=== PATIENT | male | born 1945 | race Caucasian/White ===

== ENCOUNTER → 2018-03-23 03:07 | Outpatient (CLI) | payer MEDICARE, SELFPAY ==
[2018-03-23 09:48] LABS: INR 2.5 (1.0-3.5)
[2018-03-23 10:27] LABS: Cholesterol 98 mg/dL (50-200); HDL Cholesterol 43 mg/dL (40-60); LDL CHOLESTEROL 48 mg/dL (<100); Triglyceride 99 mg/dL (30-150)
== END ==
PROVIDERS: PCP Family Medicine; Visit Provider Family Medicine
DX: E78.5 Hyperlipidemia, unspecified (principal); I48.91 Unspecified atrial fibrillation; Z79.01 Long term (current) use of anticoagulants
CPT/HCPCS: 36415; 80061; 83721; 85610

== ENCOUNTER 2018-04-26 08:49 | Outpatient (CLI) | payer MEDICARE, SELFPAY ==
[2018-04-26 14:41] LABS: INR 1.8 (1.0-3.5); Prothrombin Time 17.1 sec (9.3-10.8)
== END 2018-04-26 09:09 ==
PROVIDERS: PCP Family Medicine; Visit Provider Family Medicine
DX: I48.91 Unspecified atrial fibrillation (principal); Z79.01 Long term (current) use of anticoagulants
CPT/HCPCS: 36415; 85610

== ENCOUNTER → 2018-05-09 12:46 | Outpatient (BNVA) | payer MEDICARE, SELFPAY | PROVIDERS: PCP Family Medicine; Referring Provider Family Medicine; Visit Provider Surgery | DX: K21.9 Gastro-esophageal reflux disease without esophagitis (principal); K22.70 Barrett's esophagus without dysplasia | CPT/HCPCS: 99213 ==

== ENCOUNTER 2018-05-25 09:24 | Day surgery (SDC) | payer MEDICARE, SELFPAY ==
--- NOTE | 2018-05-25 06:31 | W.PM.OP ---
Date of service: 05/25/18 Operative Note DATE OF PROCEDURE: 05/25/18 PRE-OP DIAGNOSIS: GERD POST-OP DIAGNOSIS: other (Duodenitis, gastritis and esophagitis) PROCEDURE: EGD with biopsies SURGEON: Terri Johnson ANESTHESIA: MAC (Jian Farnsworth, YADIRA) ESTIMATED BLOOD LOSS: 2 PATHOLOGY: other (Antrum and esophageal biopsies) COMPLICATIONS: None Patient was transported to: same day Patient's condition: stable Indications: Mr. Carlson is a pleasant 73-year-old gentleman with a history of esophageal reflux who was seen in the office with some increased symptoms. Risks, benefits and complications were reviewed with him and he wished to proceed. No guarantees were given or implied. Findings: Mild inflammation of the duodenum and stomach. There is moderate esophageal inflammation with most likely some Bautista's Procedure Description: After informed consent was obtained the patient was taken to the procedure room and placed in a supine position. Monitors were applied and a time out was done. The patients name, date of , procedure, allergies to medications and metal in their body was reviewed. The patient was then sedated. Once sedated and comfortable the Gastroscope was introduced and advanced through the oropharynx. The oropharynx was grossly intact. The scope was advanced into the esophagus. Proximal and mid-esophagus were normal. In the distal esophagus moderate inflammation was noted. The scope was advanced into the stomach and through the pylorus into the third portion of the duodenum. Third and second portions of the duodenuma were normal. In the 1st portion of the duodenum there was some inflammation noted. The scope was retracted into the stomach where mild inflammation was noted. Biopsies were done to rule out H. pylori. The scope was then retroflexed. The cardia and fundus of the stomach were normal. The scope was straightened and pulled back into the esophagus. The Z line was noted to be irregular. The GE junction was noted to be at 40 centimeters. Biopsies were done to rule out H. pylori. There were islands of inflammation noted at 38 cm and these were biopsied as well. The scope was removed and the patient was woken up and taken back to Same day surgery in stable condition. The patient tolerated the procedure well and there were no immediate complications. Follow up: The patient should follow up in 2-3 weeks.
--- NOTE | 2018-05-25 06:36 | W.PM.DSUDISC ---
Discharge Plan Disposition Patient Disposition: HOME Condition: Good Discharge Details Reason For Visit: GERD/EGD Attending Provider: Terri Johnson Primary Care Provider: Marck Mcneal Home Meds and New Rx's Prescriptions: New ranitidine HCl [Zantac] 300 mg tablet 300 mg PO HS Qty: 30 RF: 3 Continue multivitamin [Daily Vitamin] 1 EACH tablet 1 ea PO DAILY RF: 0 aspirin [Ecotrin Low Strength] 81 MG tablet,delayed release (DR/EC) 1 tab PO DAILY RF: 0 saw palmetto 160 MG capsule 1 cap PO DAILY PRN PRNRF: 0 glucosam-chond ka-yhckfj-yy ac 1 EACH capsule 1 tab PO DAILY RF: 0 baclofen 10 MG tablet 10 mg PO TID PRNQty: 30 RF: 0 Warfarin Sodium 5 MG tablet PO DIRECTED Qty: 30 RF: 11 nitroglycerin [Nitrostat] 0.4 MG tablet, sublingual 0.4 mg Sublingual PRN Qty: 25 RF: 4 atorvastatin 40 mg tablet 40 mg PO DAILY Qty: 90 RF: 4 pantoprazole 40 MG tablet,delayed release (DR/EC) 40 mg PO DAILY@0730 PRNRF: 0 acetaminophen [Tylenol Extra Strength] 500 mg Tablet 500 mg PO Q6H PRNRF: 0 warfarin [Coumadin] 5 MG tablet 5 mg PO QPM RF: 0 Discharge Instructions Instructions: Upper Endoscopy (DC), Diet for Stomach Ulcers and Gastritis (GEN), Duodenitis (DC), Gastritis (DC), Gastroesophageal Reflux Disease (DC) Additional Instructions: Findings: Inflammation of the stomach and small bowel that were mild Inflammation of the esophagus Follow up: 2-3 weeks in the office New Medications: Zantac 300 mg at night Continue Pantoprazole Please call if you develop: fevers >101.5 Nausea or Vomiting Non Transient abdominal pain Worsening shortness of breath 1. Because there will be medication in your system for the next 24 hours, you may feel a little sleepy. Your coordination will be affected. Therefore: a. Do not drive or operate dangerous equipment for 24 hours. b. Do not drink alcohol beverages for 24 hours (not even beer). c. Plan to go home and rest for the day. 2. Generally there are no restrictions on your activity after a day or so has gone by, but you may feel a bit fatigued for a few days. 3 After you arrive home you may have a light meal and return to a normal diet as you can tolerate it without feeling sick to your stomach. 4. After surgery, you may feel pain or discomfort. This should be only transient, but if it persists please contact your doctor. 5. If there are any questions regarding the findings of your procedure, please feel free to contact your doctor. 6. If you are unable to contact your doctor with a problem, contact the ospital at [phone]. 7. Continue all your regular medications unless directed otherwise. I understand the above instructions and have no questions. Signature of Patient or Responsible Adult Escort Date/Time Name of Responsible Adult Escort Signature of Nurse Date/Time Stand Alone Forms: DSU Post EGD Instructions, Favian Trevino (DSU) Referrals: Terri Johnson MD [ [facility] STAFF PHYSICIAN] - 06/06/18 8:45 am Activity:: Activity as Tolerated Diet:: As Tolerated Discharge Orders Discharge Orders: Discharge Order (Routine); Ordered 05/25/18 Ordered By: Terri Johnson DS: Diagnosis Discharge Diagnosis (1) Esophagitis: Status: Acute (2) Gastritis: Status: Acute
--- NOTE | 2018-05-25 06:39 | PDOC.DSDIS_ITS ---
Discharge Plan Disposition Patient Disposition: HOME Condition: Good Discharge Details Reason For Visit: GERD/EGD Attending Provider: Terri Johnson Primary Care Provider: Marck Mcneal Home Meds and New Rx's Prescriptions: New ranitidine HCl [Zantac] 300 mg tablet 300 mg PO HS Qty: 30 RF: 3 Continue multivitamin [Daily Vitamin] 1 EACH tablet 1 ea PO DAILY RF: 0 aspirin [Ecotrin Low Strength] 81 MG tablet,delayed release (DR/EC) 1 tab PO DAILY RF: 0 saw palmetto 160 MG capsule 1 cap PO DAILY PRN PRNRF: 0 glucosam-chond gp-yxsail-po ac 1 EACH capsule 1 tab PO DAILY RF: 0 baclofen 10 MG tablet 10 mg PO TID PRNQty: 30 RF: 0 Warfarin Sodium 5 MG tablet PO DIRECTED Qty: 30 RF: 11 nitroglycerin [Nitrostat] 0.4 MG tablet, sublingual 0.4 mg Sublingual PRN Qty: 25 RF: 4 atorvastatin 40 mg tablet 40 mg PO DAILY Qty: 90 RF: 4 pantoprazole 40 MG tablet,delayed release (DR/EC) 40 mg PO DAILY@0730 PRNRF: 0 acetaminophen [Tylenol Extra Strength] 500 mg Tablet 500 mg PO Q6H PRNRF: 0 warfarin [Coumadin] 5 MG tablet 5 mg PO QPM RF: 0 Discharge Instructions Instructions: Upper Endoscopy (DC), Diet for Stomach Ulcers and Gastritis (GEN) , Duodenitis (DC), Gastritis (DC), Gastroesophageal Reflux Disease (DC) Additional Instructions: Findings: Inflammation of the stomach and small bowel that were mild Inflammation of the esophagus Follow up: 2-3 weeks in the office New Medications: Zantac 300 mg at night Continue Pantoprazole Please call if you develop: fevers >101.5 Nausea or Vomiting Non Transient abdominal pain Worsening shortness of breath 1. Because there will be medication in your system for the next 24 hours, you may feel a little sleepy. Your coordination will be affected. Therefore: a. Do not drive or operate dangerous equipment for 24 hours. b. Do not drink alcohol beverages for 24 hours (not even beer). c. Plan to go home and rest for the day. 2. Generally there are no restrictions on your activity after a day or so has gone by, but you may feel a bit fatigued for a few days. 3 After you arrive home you may have a light meal and return to a normal diet as you can tolerate it without feeling sick to your stomach. 4. After surgery, you may feel pain or discomfort. This should be only transient , but if it persists please contact your doctor. 5. If there are any questions regarding the findings of your procedure, please feel free to contact your doctor. 6. If you are unable to contact your doctor with a problem, contact the ospital at [phone]. 7. Continue all your regular medications unless directed otherwise. I understand the above instructions and have no questions. Signature of Patient or Responsible Adult Escort Date/Time Name of Responsible Adult Escort Signature of Nurse Date/Time Stand Alone Forms: DSU Post EGD Instructions, Favian Trevino (DSU) Referrals: Terri Johnson MD [ [facility] STAFF PHYSICIAN] - 06/06/18 8:45 am Activity:: Activity as Tolerated Diet:: As Tolerated Discharge Orders Discharge Orders: Discharge Order (Routine); Ordered 05/25/18 Ordered By: Terri Johnson DS: Diagnosis Discharge Diagnosis (1) Esophagitis: Status: Acute (2) Gastritis: Status: Acute
[2018-05-25 09:43] VITALS: BP 133/80; PULSE 54; RESP 18; TEMP 35.1; O2SAT 99
[2018-05-25 09:54] VITALS: BP 133/80; PULSE 54; RESP 18; TEMP 35.1; O2SAT 99
[2018-05-25 10:05] LABS: Prothrombin Time 10.1 sec (9.3-10.8)
[2018-05-25] MEDS: Lactated Ringers 1,000 ML 80 ML IV (10:10)
--- NOTE | 2018-05-25 11:50 | STOM_PTH ---
PATIENT: Les Carlson LOC: [facility] U#:[id number] AGE/SX: 73/M ROOM: RE05/25/[address]: Terri Johnson MD : [id number] BED: DIS: 05/25/2018 SPEC #: [id number] RECD: 05/25/18 13:03 STATUS: ALIX RE #: [id number] HEIDI: 05/25/18 11:[address]: Terri Johnson DEPT: Surgical Specimen RECD BY: Sahra Guo ENTERED: 05/25/18 13:10 SP TYPE: STOMACH OTHR DR: Marck Mcneal MD Tissues: 1 - STOMACH BIOPSY 2 - ESOPHAGUS BIOPSY 3 - ESOPHAGUS BIOPSY Procedures: GROSS AND MICRO LEVEL 4 Comments: [id number]
[2018-05-25 12:35] VITALS: BP 120/92; PULSE 56; RESP 16; TEMP 35.4; O2SAT 94
== END 2018-05-25 14:10 | disposition home or self-care (01) ==
LOC: SUR 09:24
PROVIDERS: PCP Family Medicine; Visit Provider Surgery
PROC: 0DJ68ZZ Inspection of Stomach, Via Natural or Artificial Opening Endoscopic (ICD-10-PCS; CPT 43235; principal; 2018-05-25 11:15)
DX: K21.9 Gastro-esophageal reflux disease without esophagitis (principal); K22.70 Barrett's esophagus without dysplasia; K29.30 Chronic superficial gastritis without bleeding; G47.33 Obstructive sleep apnea (adult) (pediatric); I48.91 Unspecified atrial fibrillation; Z79.4 Long term (current) use of insulin
CPT/HCPCS: 43239; 36415; 88305; 85610; J2250; J3010

== ENCOUNTER 2018-05-30 08:42 | Outpatient (CLI) | payer MEDICARE, SELFPAY ==
[2018-05-30 11:44] LABS: INR 1.4 (1.0-3.5); Prothrombin Time 13.3 sec (9.3-10.8)
== END 2018-05-30 09:02 ==
PROVIDERS: PCP Family Medicine; Visit Provider Family Medicine
DX: I48.91 Unspecified atrial fibrillation (principal); Z79.01 Long term (current) use of anticoagulants
CPT/HCPCS: 36415; 85610

== ENCOUNTER 2018-06-08 09:26 | Outpatient (CLI) | payer MEDICARE, SELFPAY ==
[2018-06-08 13:09] LABS: INR 2.2 (1.0-3.5); Prothrombin Time 20.5 sec (9.3-10.8)
== END 2018-06-08 09:46 ==
PROVIDERS: PCP Family Medicine; Visit Provider Family Medicine
DX: I48.91 Unspecified atrial fibrillation (principal); Z79.01 Long term (current) use of anticoagulants
CPT/HCPCS: 36415; 85610

== ENCOUNTER → 2018-06-13 13:02 | Outpatient (BNVA) | payer MEDICARE, SELFPAY | PROVIDERS: PCP Family Medicine; Referring Provider Family Medicine; Visit Provider Surgery | DX: K29.00 Acute gastritis without bleeding (principal); K22.70 Barrett's esophagus without dysplasia | CPT/HCPCS: 99213 ==

== ENCOUNTER 2018-07-10 02:24 | Outpatient (CLI) | payer MEDICARE, SELFPAY ==
[2018-07-10 14:03] LABS: INR 3.1 (1.0-3.5); Prothrombin Time 29.1 sec (9.3-10.8)
== END 2018-07-10 02:44 ==
PROVIDERS: PCP Family Medicine; Visit Provider Family Medicine
DX: I48.91 Unspecified atrial fibrillation (principal); Z79.01 Long term (current) use of anticoagulants
CPT/HCPCS: 85610

== ENCOUNTER 2018-08-09 01:00 | Outpatient (CLI) | payer MEDICARE, SELFPAY ==
[2018-08-09 14:48] LABS: INR 1.9 (0.9-1.1); Prothrombin Time 18.9 sec (9.3-11.0)
== END 2018-08-09 01:20 ==
PROVIDERS: PCP Family Medicine; Visit Provider Family Medicine
DX: I48.91 Unspecified atrial fibrillation (principal); Z79.01 Long term (current) use of anticoagulants
CPT/HCPCS: 36415; 85610

== ENCOUNTER 2018-08-25 14:16 | Outpatient (CLI) | payer MEDICARE, SELFPAY ==
[2018-08-25 15:58] LABS: Anion Gap 8.4 mmol/L (3-11); BUN 18 mg/dL (7-18); CO2 28.6 mmol/L (21.0-32.0); CREATININE 1.14 mg/dL (0.70-1.30); Calcium 9.1 mg/dL (8.5-10.1); Chloride 103 mmol/L (98-107); Glucose 139 mg/dL (70-100); Sodium 140 mmol/L (136-145)
== END 2018-08-25 14:36 ==
PROVIDERS: PCP Family Medicine; Visit Provider Family Medicine
DX: I95.9 Hypotension, unspecified (principal)
CPT/HCPCS: 36415; 80048

== ENCOUNTER 2018-09-14 11:54 | Outpatient (CLI) | payer MEDICARE, SELFPAY ==
[2018-09-14 16:03] LABS: INR 2.9 (0.9-1.1); Prothrombin Time 29.6 sec (9.3-11.0)
== END 2018-09-14 12:14 ==
PROVIDERS: PCP Family Medicine; Visit Provider Family Medicine
DX: I48.91 Unspecified atrial fibrillation (principal); Z79.01 Long term (current) use of anticoagulants
CPT/HCPCS: 36415; 85610

== ENCOUNTER 2018-10-10 10:51 | Outpatient (CLI) | payer MEDICARE, SELFPAY ==
[2018-10-10 11:51] LABS: INR 1.6 (0.9-1.1); Prothrombin Time 16.3 sec (9.3-11.0)
== END 2018-10-10 11:11 ==
PROVIDERS: PCP Family Medicine; Visit Provider Family Medicine
DX: I48.91 Unspecified atrial fibrillation (principal); Z79.01 Long term (current) use of anticoagulants
CPT/HCPCS: 36415; 85610

== ENCOUNTER 2018-10-18 02:36 | Outpatient (CLI) | payer MEDICARE, SELFPAY ==
[2018-10-18 15:34] LABS: INR 2.3 (0.9-1.1); Prothrombin Time 23.6 sec (9.3-11.0)
== END 2018-10-18 02:56 ==
PROVIDERS: PCP Family Medicine; Visit Provider Family Medicine
DX: I48.91 Unspecified atrial fibrillation (principal); Z79.01 Long term (current) use of anticoagulants
CPT/HCPCS: 36415; 85610

== ENCOUNTER 2018-10-31 09:49 | Outpatient (CLI) | payer MEDICARE, SELFPAY ==
[2018-10-31 12:15] LABS: Prothrombin Time 20.6 sec (9.3-11.0)
== END 2018-10-31 10:09 ==
PROVIDERS: PCP Family Medicine; Visit Provider Family Medicine
DX: I48.91 Unspecified atrial fibrillation (principal); Z79.01 Long term (current) use of anticoagulants
CPT/HCPCS: 36415; 85610

== ENCOUNTER 2018-11-30 13:19 | Outpatient (CLI) | payer MEDICARE, SELFPAY ==
[2018-11-30 14:14] LABS: INR 1.4 (0.9-1.1); Prothrombin Time 13.7 sec (9.3-11.0)
== END 2018-11-30 13:39 ==
PROVIDERS: PCP Family Medicine; Visit Provider Family Medicine
DX: I48.91 Unspecified atrial fibrillation (principal); Z79.01 Long term (current) use of anticoagulants
CPT/HCPCS: 36415; 85610

== ENCOUNTER 2018-12-06 01:31 | Outpatient (CLI) | payer MEDICARE, SELFPAY ==
[2018-12-06 09:20] LABS: Prothrombin Time 20.6 sec (9.3-11.0)
== END 2018-12-06 01:51 ==
PROVIDERS: PCP Family Medicine; Visit Provider Family Medicine
DX: I48.91 Unspecified atrial fibrillation (principal); Z79.01 Long term (current) use of anticoagulants
CPT/HCPCS: 36415; 85610

== ENCOUNTER 2019-01-22 02:28 | Outpatient (CLI) | payer MEDICARE, SELFPAY ==
[2019-01-22 16:19] LABS: Prothrombin Time 30.8 sec (9.3-11.0)
== END 2019-01-22 02:48 ==
PROVIDERS: PCP Family Medicine; Visit Provider Family Medicine
DX: I48.91 Unspecified atrial fibrillation (principal); Z79.01 Long term (current) use of anticoagulants
CPT/HCPCS: 36415; 85610

== ENCOUNTER 2019-02-23 03:18 | Outpatient (CLI) | payer MEDICARE, SELFPAY ==
[2019-02-23 11:59] LABS: INR 2.3 (0.9-1.1); Prothrombin Time 23.1 sec (9.3-11.0)
== END 2019-02-23 03:38 ==
PROVIDERS: PCP Family Medicine; Visit Provider Family Medicine
DX: I48.91 Unspecified atrial fibrillation (principal); Z79.01 Long term (current) use of anticoagulants
CPT/HCPCS: 36415; 85610

== ENCOUNTER 2019-03-26 08:59 | Outpatient (CLI) | payer MEDICARE, SELFPAY ==
[2019-03-26 13:11] LABS: Prothrombin Time 30.5 sec (9.3-11.0)
== END 2019-03-26 09:19 ==
PROVIDERS: PCP Family Medicine; Visit Provider Family Medicine
DX: I48.91 Unspecified atrial fibrillation (principal); Z79.01 Long term (current) use of anticoagulants
CPT/HCPCS: 36415; 85610

== ENCOUNTER 2019-04-25 11:53 | Outpatient (CLI) | payer MEDICARE, SELFPAY ==
[2019-04-25 13:56] LABS: INR 2.5 (0.9-1.1); Prothrombin Time 24.6 sec (9.3-11.0)
== END 2019-04-25 12:13 ==
PROVIDERS: PCP Family Medicine; Visit Provider Family Medicine
DX: I48.91 Unspecified atrial fibrillation (principal); Z79.01 Long term (current) use of anticoagulants
CPT/HCPCS: 36415; 85610

== ENCOUNTER 2019-05-30 09:03 | Outpatient (CLI) | payer MEDICARE, SELFPAY ==
[2019-05-30 09:48] LABS: Prothrombin Time 29.6 sec (9.3-11.0)
== END 2019-05-30 09:23 ==
PROVIDERS: PCP Family Medicine; Visit Provider Family Medicine
DX: I48.91 Unspecified atrial fibrillation (principal); Z79.01 Long term (current) use of anticoagulants
CPT/HCPCS: 36415; 85610

== ENCOUNTER 2019-06-25 02:24 | Outpatient (CLI) | payer MEDICARE, SELFPAY ==
--- NOTE | 2019-06-25 07:50 | DI.US_ITS ---
EXAM: US ABDOMEN CLINICAL HISTORY: epigastric abd pain, R10.13 TECHNIQUE: Ultrasound abdomen performed using standard protocol. FINDINGS: LIVER: Normal size and echogenicity. No focal liver lesions are seen. GALLBLADDER: A 1.7 centimeter mobile stone was noted in the body of the gallbladder. No evidence of wall thickening. No pericholecystic fluid identified. KIDNEYS: Kidneys are symmetric in size. No evidence of renal calculi. No evidence of hydronephrosis. No renal mass or cyst identified. BILIARY SYSTEM: No intrahepatic or extrahepatic biliary ductal dilation. PERRY'S SIGN: Negative. PANCREAS: Normal where visualized. SPLEEN: Not enlarged. ABDOMINAL AORTA AND IVC: Visualized portions normal caliber. ASCITES: None seen. IMPRESSION: Cholelithiasis. No evidence of biliary dilatation or acute cholecystitis..
== END 2019-06-25 02:44 ==
PROVIDERS: PCP Family Medicine; Visit Provider Nurse Practitioner
DX: R10.13 Epigastric pain (principal); K80.20 Calculus of gallbladder without cholecystitis without obstruction
CPT/HCPCS: 76700

== ENCOUNTER 2019-06-25 09:56 | Outpatient (CLI) | payer MEDICARE, SELFPAY ==
[2019-06-25 10:30] LABS: INR 2.4 (0.9-1.1); Prothrombin Time 23.3 sec (9.3-11.0)
== END 2019-06-25 10:16 ==
PROVIDERS: PCP Family Medicine; Visit Provider Family Medicine
DX: I48.91 Unspecified atrial fibrillation (principal); Z79.01 Long term (current) use of anticoagulants
CPT/HCPCS: 36415; 76700; 85610

== ENCOUNTER 2019-07-12 12:55 | Outpatient (CLI) | payer MEDICARE, SELFPAY ==
--- NOTE | 2019-07-12 12:40 | DI.RAD_ITS ---
EXAM: XR CHEST 2V PA LATERAL INDICATION: Pleuritic chest PAIN R07.81. COMPARISON: LEFT RIBS TO INCLUDE CXR from 08/03/2015 TECHNIQUE: 2D digital imaging was performed. FINDINGS: The heart size is normal. The aorta is mildly tortuous. The lungs are well inflated and clear. No infiltrate, effusion or pneumothorax is seen. IMPRESSION: No acute abnormality.
== END 2019-07-12 13:15 ==
PROVIDERS: PCP Family Medicine; Visit Provider Family Medicine
DX: R07.81 Pleurodynia (principal); R07.89 Other chest pain
CPT/HCPCS: 71046

== ENCOUNTER 2019-07-26 09:05 | Outpatient (CLI) | payer MEDICARE, SELFPAY ==
[2019-07-26 14:33] LABS: Prothrombin Time 32.6 sec (9.3-11.0)
[2019-07-26 14:36] LABS: INR 3.3 (0.9-1.1)
== END 2019-07-26 09:25 ==
PROVIDERS: PCP Family Medicine; Visit Provider Family Medicine
DX: I48.91 Unspecified atrial fibrillation (principal); Z79.01 Long term (current) use of anticoagulants
CPT/HCPCS: 36415; 85610

== ENCOUNTER 2019-08-02 11:51 | Outpatient (CLI) | payer MEDICARE, SELFPAY ==
[2019-08-02 14:39] LABS: INR 2.8 (0.9-1.1); Prothrombin Time 27.3 sec (9.3-11.0)
== END 2019-08-02 12:11 ==
PROVIDERS: PCP Family Medicine; Visit Provider Family Medicine
DX: I48.91 Unspecified atrial fibrillation (principal); Z79.01 Long term (current) use of anticoagulants
CPT/HCPCS: 36415; 85610

== ENCOUNTER → 2019-08-30 12:40 | Outpatient (BNVA) | payer MEDICARE, SELFPAY | PROVIDERS: PCP Family Medicine; Referring Provider Family Medicine; Visit Provider Nurse Practitioner Gerontology | DX: N40.1 Benign prostatic hyperplasia with lower urinary tract symptoms (principal); R35.0 Frequency of micturition; R39.11 Hesitancy of micturition | CPT/HCPCS: 99204; 99215 ==

== ENCOUNTER 2019-09-03 09:35 | Outpatient (CLI) | payer MEDICARE, SELFPAY ==
[2019-09-03 12:00] LABS: INR 2.6 (0.9-1.1); Prothrombin Time 25.2 sec (9.3-11.0)
[2019-09-04 09:59] LABS: PSA, Screening 2.2 ng/mL (0.0-6.5)
== END 2019-09-03 09:55 ==
PROVIDERS: Nurse Practitioner Gerontology; PCP Family Medicine; Visit Provider Family Medicine
DX: I48.91 Unspecified atrial fibrillation (principal); Z79.01 Long term (current) use of anticoagulants; N40.1 Benign prostatic hyperplasia with lower urinary tract symptoms; Z12.5 Encounter for screening for malignant neoplasm of prostate
CPT/HCPCS: 36415; 84153; 85610

== ENCOUNTER 2019-10-03 12:32 | Outpatient (CLI) | payer MEDICARE, SELFPAY ==
[2019-10-03 14:27] LABS: Prothrombin Time 10.5 sec (9.3-11.0)
== END 2019-10-03 12:52 ==
PROVIDERS: PCP Family Medicine; Visit Provider Family Medicine
DX: I48.91 Unspecified atrial fibrillation (principal); Z79.01 Long term (current) use of anticoagulants
CPT/HCPCS: 36415; 85610

== ENCOUNTER 2019-10-10 11:40 | Outpatient (CLI) | payer MEDICARE, SELFPAY ==
[2019-10-10 12:21] LABS: INR 1.5 (0.9-1.1); Prothrombin Time 15.2 sec (9.3-11.0)
== END 2019-10-10 12:00 ==
PROVIDERS: PCP Family Medicine; Visit Provider Family Medicine
DX: I48.91 Unspecified atrial fibrillation (principal); Z79.01 Long term (current) use of anticoagulants
CPT/HCPCS: 36415; 85610

== ENCOUNTER 2019-10-17 10:03 | Outpatient (CLI) | payer MEDICARE, SELFPAY ==
[2019-10-17 14:54] LABS: INR 1.6 (0.9-1.1)
== END 2019-10-17 10:23 ==
PROVIDERS: PCP Family Medicine; Visit Provider Family Medicine
DX: I48.91 Unspecified atrial fibrillation (principal); Z79.01 Long term (current) use of anticoagulants
CPT/HCPCS: 36415; 85610

== ENCOUNTER 2019-10-24 02:01 | Outpatient (CLI) | payer MEDICARE, SELFPAY ==
[2019-10-24 11:35] LABS: Prothrombin Time 23.1 sec (9.3-11.0)
[2019-10-24 11:36] LABS: INR 2.3 (0.9-1.1)
== END 2019-10-24 02:21 ==
PROVIDERS: PCP Family Medicine; Visit Provider Family Medicine
DX: I48.91 Unspecified atrial fibrillation (principal); Z79.01 Long term (current) use of anticoagulants
CPT/HCPCS: 36415; 85610

== ENCOUNTER 2019-11-01 07:47 | Outpatient (CLI) | payer MEDICARE, SELFPAY ==
[2019-11-01 12:46] LABS: Prothrombin Time 19.4 sec (9.3-11.0)
== END 2019-11-01 08:07 ==
PROVIDERS: PCP Family Medicine; Visit Provider Family Medicine
DX: I48.91 Unspecified atrial fibrillation (principal); Z79.01 Long term (current) use of anticoagulants
CPT/HCPCS: 36415; 85610

== ENCOUNTER → 2019-11-28 13:07 | Outpatient (BNVA) | payer MEDICARE, SELFPAY | PROVIDERS: PCP Family Medicine; Referring Provider Family Medicine; Visit Provider Nurse Practitioner Gerontology | DX: N40.1 Benign prostatic hyperplasia with lower urinary tract symptoms (principal) | CPT/HCPCS: 99213; 99442 ==

== ENCOUNTER 2019-12-07 02:58 | Outpatient (CLI) | payer MEDICARE, SELFPAY ==
[2019-12-07 16:35] LABS: INR 2.5 (0.9-1.1); Prothrombin Time 24.6 sec (9.3-11.0)
== END 2019-12-07 03:18 ==
PROVIDERS: PCP Family Medicine; Visit Provider Family Medicine
DX: I48.91 Unspecified atrial fibrillation (principal); Z79.01 Long term (current) use of anticoagulants
CPT/HCPCS: 36415; 85610

== ENCOUNTER 2020-01-18 04:11 | Outpatient (CLI) | payer MEDICARE, SELFPAY ==
[2020-01-18 11:36] LABS: INR 2.7 (0.9-1.1); Prothrombin Time 26.7 sec (9.3-11.0)
== END 2020-01-18 04:31 ==
PROVIDERS: PCP Family Medicine; Visit Provider Family Medicine
DX: I48.91 Unspecified atrial fibrillation (principal); Z79.01 Long term (current) use of anticoagulants
CPT/HCPCS: 36415; 85610

== ENCOUNTER 2020-02-18 02:29 | Outpatient (CLI) | payer MEDICARE, SELFPAY ==
[2020-02-18 13:07] LABS: INR 3.3 (0.9-1.1); Prothrombin Time 32.5 sec (9.3-11.0)
== END 2020-02-18 02:49 ==
PROVIDERS: PCP Family Medicine; Visit Provider Family Medicine
DX: I48.91 Unspecified atrial fibrillation (principal)
CPT/HCPCS: 36415; 85610

== ENCOUNTER 2020-02-25 02:01 | Outpatient (CLI) | payer MEDICARE, SELFPAY ==
[2020-02-25 13:37] LABS: Prothrombin Time 29.1 sec (9.3-11.0)
== END 2020-02-25 02:21 ==
PROVIDERS: PCP Family Medicine; Visit Provider Family Medicine
DX: I48.91 Unspecified atrial fibrillation (principal)
CPT/HCPCS: 36415; 85610

== ENCOUNTER 2020-03-10 02:46 | Outpatient (CLI) | payer MEDICARE, SELFPAY ==
[2020-03-10 16:19] LABS: INR 2.5 (0.9-1.1); Prothrombin Time 24.8 sec (9.3-11.0)
== END 2020-03-10 03:06 ==
PROVIDERS: PCP Family Medicine; Visit Provider Family Medicine
DX: I48.91 Unspecified atrial fibrillation (principal); Z79.01 Long term (current) use of anticoagulants
CPT/HCPCS: 36415; 85610

== ENCOUNTER 2020-03-28 02:38 | Outpatient (CLI) | payer MEDICARE, SELFPAY ==
[2020-03-28 13:23] LABS: INR 2.4 (0.9-1.1)
== END 2020-03-28 02:58 ==
PROVIDERS: PCP Family Medicine; Visit Provider Family Medicine
DX: I48.91 Unspecified atrial fibrillation (principal); Z79.01 Long term (current) use of anticoagulants
CPT/HCPCS: 36415; 85610

== ENCOUNTER 2020-05-07 01:13 | Outpatient (CLI) | payer MEDICARE, SELFPAY ==
[2020-05-07 13:40] LABS: INR 1.9 (0.9-1.1); Prothrombin Time 18.6 sec (9.3-11.0)
== END 2020-05-07 01:33 ==
PROVIDERS: PCP Family Medicine; Visit Provider Family Medicine
DX: I48.91 Unspecified atrial fibrillation (principal); Z79.01 Long term (current) use of anticoagulants
CPT/HCPCS: 36415; 85610

== ENCOUNTER 2020-05-22 04:01 | Outpatient (CLI) | payer MEDICARE, SELFPAY ==
[2020-05-22 16:45] LABS: INR 1.9 (0.9-1.1); Prothrombin Time 18.8 sec (9.3-11.0)
== END 2020-05-22 04:21 ==
PROVIDERS: PCP Family Medicine; Visit Provider Family Medicine
DX: I48.91 Unspecified atrial fibrillation (principal); Z79.01 Long term (current) use of anticoagulants
CPT/HCPCS: 36415; 85610

== ENCOUNTER 2020-05-29 02:03 | Outpatient (CLI) | payer MEDICARE, SELFPAY ==
[2020-05-29 10:44] LABS: INR 1.5 (0.9-1.1); Prothrombin Time 14.7 sec (9.3-11.0)
== END 2020-05-29 02:23 ==
PROVIDERS: PCP Family Medicine; Visit Provider Family Medicine
DX: I48.91 Unspecified atrial fibrillation (principal); Z79.01 Long term (current) use of anticoagulants
CPT/HCPCS: 36415; 85610

== ENCOUNTER 2020-06-13 00:51 | Outpatient (CLI) | payer MEDICARE, SELFPAY ==
[2020-06-13 18:54] LABS: INR 2.7 (0.9-1.1); Prothrombin Time 26.8 sec (9.3-11.0)
== END 2020-06-13 01:11 ==
PROVIDERS: PCP Family Medicine; Visit Provider Family Medicine
DX: I48.91 Unspecified atrial fibrillation (principal)
CPT/HCPCS: 36415; 85610

== ENCOUNTER 2020-06-27 04:36 | Outpatient (CLI) | payer MEDICARE, SELFPAY ==
[2020-06-27 13:45] LABS: INR 1.1 (0.9-1.1); Prothrombin Time 10.7 sec (9.3-11.0)
== END 2020-06-27 04:56 ==
PROVIDERS: PCP Family Medicine; Visit Provider Family Medicine
DX: I48.91 Unspecified atrial fibrillation (principal); Z79.01 Long term (current) use of anticoagulants
CPT/HCPCS: 36415; 85610

== ENCOUNTER 2020-07-07 03:08 | Outpatient (CLI) | payer MEDICARE, SELFPAY ==
[2020-07-07 12:17] LABS: INR 2.2 (0.9-1.1); Prothrombin Time 21.7 sec (9.3-11.0)
== END 2020-07-07 03:28 ==
PROVIDERS: Family Medicine; PCP Family Medicine; Visit Provider Family Medicine
DX: I48.91 Unspecified atrial fibrillation (principal); Z79.01 Long term (current) use of anticoagulants
CPT/HCPCS: 36415; 85610

== ENCOUNTER 2020-07-15 01:42 | Outpatient (CLI) | payer MEDICARE, SELFPAY ==
[2020-07-15 15:47] LABS: INR 3.6 (0.9-1.1); Prothrombin Time 35.5 sec (9.3-11.0)
[2020-07-15 21:25] LABS: ALT 32 U/L (16-63); AST 21 U/L (15-37); Albumin 4.2 g/dL (3.4-5.0); Alkaline Phosphatase 71 U/L (46-116); Anion Gap 8.7 mmol/L (3-11); BUN 22 mg/dL (7-18); Bilirubin, Total 0.5 mg/dL (0.2-1.0); CO2 28.3 mmol/L (21.0-32.0); CREATININE 1.08 mg/dL (0.70-1.30); Calcium 8.8 mg/dL (8.5-10.1); Chloride 106 mmol/L (98-107); Glucose 92 mg/dL (74-106); Potassium 4.6 mmol/L (3.5-5.1); Sodium 143 mmol/L (136-145); Total Protein 7.1 g/dL (6.4-8.2)
[2020-07-15 21:38] LABS: Abs Immature Grans 0.02 10^3/uL (0.0-0.06); Absolute Basophil Count 0.03 10^3/uL (0.0-0.2); Absolute Eosinophil Count 0.05 10^3/uL (0.0-0.7); Absolute Lymphocyte Count 1.28 10^3/uL (1.2-3.4); Absolute Monocyte Count 0.51 10^3/uL (0.1-0.8); Absolute Neutrophil Count 3.71 10^3/uL (1.2-6.7); Basophils % 0.5; Eosinophils % 0.9; HCT 46.9 % (40.0-50.0); HGB 15.1 g/dL (13.5-17.5); Immature Grans % 0.4; Lymphocytes % 22.9; MCH 30.6 pg (27.0-33.0); MCHC 32.2 % (32.0-36.0); MCV 94.9 fL (80-95); MPV 10.1 fL (8.0-11.0); Monocytes % 9.1; Neutrophils % 66.2; Nucleated RBC 0 %; Platelet Count 217 10^3/uL (130-400); RBC 4.94 10^6/uL (4.36-5.78); RDW 12.6 % (11.8-14.1); RDW-SD 44.2 fL
== END 2020-07-15 02:02 ==
PROVIDERS: Family Medicine; Physician Assistant; PCP Family Medicine; Visit Provider Family Medicine
DX: I25.10 Atherosclerotic heart disease of native coronary artery without angina pectoris (principal); I48.91 Unspecified atrial fibrillation; Z79.01 Long term (current) use of anticoagulants; M54.2 Cervicalgia; R41.0 Disorientation, unspecified; R82.998 Other abnormal findings in urine
CPT/HCPCS: 36415; 80053; 85025; 85610; 87086

== ENCOUNTER 2020-07-16 23:34 | Outpatient (CLI) | payer MEDICARE, SELFPAY ==
--- NOTE | 2020-07-16 10:30 | DI.CT_ITS ---
EXAM: CT BRAIN NECK CTA CLINICAL HISTORY: neck pain left post ,confusion transient, ?TIA, M54.2, R41.0. TECHNIQUE: Imaging Protocol: Axial CT angiography was performed with multi-slice acquisition and mu lti-planar and/or 3D reconstructions. CONTRAST MATERIAL: Intravenous: Omnipaque 350 Contrast volume:100 cc FINDINGS: CTA Neck W: Aortic arch anatomy: Conventional. Anterior circulation: Both common carotid arteries ascend with normal luminal diameters. No significant plaque evident at the carotid bifurcations nor in the proximal internal carotid arteri es both internal carotid arteries are patent in the neck and skull base-carotid canals. Posterior circulation: Both vertebral arteries arising conventional fashion off of the subclavian art eries without significant stenosis at the origins nor in the subclavian arteries proximal to the orig in of the vertebral arteries. The right vertebral artery is dominant. At the skull base the basilar artery is formed predominately by the dominant right vertebral artery. Contribution from the left v ertebral artery is twig like. CTA Brain W: Anterior circulation: Both internal carotid arteries are patent in the skull base carotid canals as well as within the cave rnous sinuses with no significant atherosclerotic narrowing of the intracavernous aspects. Both opht halmic arteries are patent and originated conventional fashion off of the intracavernous internal car otid arteries. Both middle cerebral arteries are patent. Both A1 segments are patent as are the ant erior cerebral arteries. There is no evidence of obvious aneurysm at the level of the anterior commu nicating artery. Posterior circulation: The basilar artery is formed predominately by the dominant right vertebral artery and the basilar art mya is sends in the midline with normal luminal diameter. Distally gives off 2 patent superior cereb ellar arteries and above this level terminates as patent bilateral posterior cerebral arteries. CT Head No evidence of intracranial hemorrhage mass effect, or shift of midline structures. No extra-axial f luid collections. Ventricles are not enlarged or shifted. There is moderate amount of bilateral per iventricular white matter hypodensity consistent with chronic small vessel disease. There are no ring enhancing lesions in the brain. No abnormal meningeal enhancement. IMPRESSION: 1. No significant carotid stenosis in the neck. Right vertebral artery is dominant. No evidence of vertebral artery occlusion or dissection. Also no evidence of significant stenosis in the subclavian arteries proximal to the vertebral artery takeoff points (which can result in subclavian steal syndr ome). 2. Patent intracerebral arteries. No intraluminal clot nor aneurysm evident. RADIATION DOSE DELIVERED: 1,157.33mGy.cm Total DLP DATA REPOSITORY: All CT scans at this facility are submitted to the National Radiology Data Registry (NRDR) Dose Index Registry (DIR) with the [employer] (A[employer]). RADIATION OPTIMIZATION: All CT scans at this facility use at least one of these dose optimization te chniques: automated exposure control; mA and/or kV adjustment per patient size (includes targeted exa ms where dose is matched to clinical indication); or iterative reconstruction.
[2020-07-16] MEDS: Omnipaque 350 MG/ML 100 ML BTL IJ (14:32)
[2020-07-16] MEDS: Normal Saline - Diluent 50 ML VIAL IV (14:33)
== END 2020-07-16 23:54 ==
PROVIDERS: PCP Family Medicine; Visit Provider Physician Assistant
DX: M54.2 Cervicalgia (principal); R41.0 Disorientation, unspecified
CPT/HCPCS: 70496; 70498; J3490

== ENCOUNTER 2020-07-22 02:13 | Outpatient (CLI) | payer MEDICARE, SELFPAY ==
--- OUTSIDE RECORDS SUMMARY | 2020-07-22 02:14 | XMS_ITS ---
:1945 Author Care Team Providers Name Role Phone HERON CORTEZ Primary Care Provider [phone] HERON CORTEZ Referring Provider [phone] JUDITH ALAS MD Primary Care Provider [phone] Allergies Code Code System Name Reaction Severity Status Onset [id number] RxNorm Esomeprazole Diarrhea ? Active ? 4278 RxNorm Famotidine Confusion ? Active ? 67383 RxNorm Levothyroxine Rash ? Active ? 05855 RxNorm Pravastatin Rash ? Active ? 32702 RxNorm Simvastatin Myalgias ? Active ? (Muscle Pain) Medications Name Status Start Date Stop Date ? ? acetaminophen 500 mg tablet Active 06/21/2020 Not available Take 2 tablets every 4 hours by oral route as needed. Aspir-81 mg tablet,delayed release Active 06/21/2020 Not available Take 1 tablet every day by oral route. atorvastatin 40 mg tablet Active 06/21/2020 Not av ailable Take 1 tablet every day by oral route. glucosamine 500 mg-chondroit 400 mg-vit C 2 mg-ugillermina 0.33 m g capsule Active 06/21/2020 Not available Take 1 capsule every day by oral route. multivitamin Active 06/21/2020 Not available ONCE DAILY nitroglycerin 0.4 mg sublingual tablet Active [address] 1 tablet by sublingual route. pantoprazole 40 mg tablet,delayed release Active 2019 Not available Take 1 tablet every day by oral route. ranitidine 300 mg tablet Active 06/21/2020 Not ros ilable Take 0.5 tablets every day by oral route. saw palmetto 160 mg capsule Active 06/21/2020 Not available Take 1 capsule every day by oral route. warfarin 5 mg tablet Active 06/21/2020 Not availab le Take 1 tablet every day by oral route. Problems Name Status Onset Date Source ? Malignant Neoplasm of Skin Active 11/23/2018 ? Hypothyroidism Active 11/23/2018 ? Hyperlipidemia Active 11/23/2018 ? Obstructive Sleep Apnea Syndrome Active 11/23/2018 ? Benign Paroxysmal Positional Vertigo Active 11/23/2018 ? Hearing Loss Active 11/23/2018 ? Coronary Arteriosclerosis Active 11/23/2018 ? Atrial Fibrillation Active 11/23/2018 ? Internal Hemorrhoids Active 11/23/2018 ? Gastroesophageal Reflux Disease Active 11/23/2018 ? 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 Hiatal Hernia Active 11/23/2018 ? Benign Prostatic Hyperplasia Active 11/23/2018 ? Actinic Keratosis Active 11/23/2018 ? Osteoarthritis Active 11/23/2018 ? Plantar Fasciitis Active 11/23/2018 ? Plantar Fascial Fibromatosis Active 11/23/2018 ? Heel Pain Active 11/23/2018 ? Night Sweats Active 11/23/2018 ? Memory Impairment Active 11/23/2018 ? Dyspnea Active 11/23/2018 ? Chest Pain Active 11/23/2018 ? Procedures Date Name Performed by ? 08/01/2015 Egd Information not avai lable 08/01/2015 Colonoscopy Information not avai lable 08/01/2009 Total Replacement of Hip Information not available 08/01/2005 Rubber Band Ligation of Hemorrhoid(s) In formation not available 08/01/1984 Repair of Inguinal Hernia Information no t available ? Coronary Artery Stent Information not av ailable ? Complete Repair of Rotator Cuff Informat ion not available ? Cardiac Catheterization Information not available ? Arthroplasty of Knee Information not ros ilable Results Lab Results Date Name Specimen Result Interpretation Description Value Range Status Address ? 06/21/2020 Prothrombin P High Pt 16.3 sec 9.4-11.3 [facility] Time sec Hospital (Lab): [address] [place] [address] ? ? P ? Inr 1.59 ? Final [facility] (Lab): [address] [place] [address] 05/04/2020 Urinalysis, U ? Urine random ? Final C ottage Dipstick, Collection Hos pital Reflex Micro Method (Lab ): [address] [place] [address] ? ? U Normal Color yellow yellow Final [facility] (Lab): [address] [place] [address] ? ? U Normal Maynor clear clear [facility] (Lab): [address] [place] [address] ? ? U ABNORMAL Spgr >=1.030 1.015-1.[address] (Lab): [address] [facility] ? ? U ? Ph 6.0 ? Final [facility] (Lab): [address] [place] [address] ? ? U Normal Gluc negative negative Final [facility] (Lab): [facility] ? ? U Normal Bilb negative negative Final [facility] (Lab): [address] [place] [address] ? ? U Normal Ket negative negative Final [facility] (Lab): [address] [place] [address] ? ? U Normal Bld negative negative Final [facility] (Lab): [address] [place] [address] ? ? U Normal Prot negative negative Final [facility] (Lab): [address] [place] [address] ? ? U Normal Uro 0.2 E.U./dL 0.2 [facility] (Lab[facility] [address] [place] [address] ? ? U Normal Nit negative negative Final [facility] (Lab): [address] [place] [address] ? ? U Normal Leuko negative negative Final [facility] (Lab): [address] [place] [address] 05/04/2020 CK (Creatine P Normal Ck 148 U/L 39-308 Final [facility]), U/L Hospital Total, Serum (Lab ): [address] [place] [address] 05/04/2020 Troponin I, P Normal trop-I 0.023 NG/mL 0.000-0.0 Final [facility] Serum or 56 NG/mL Hospit al Plasma (Lab): [address] [place] [address] 05/04/2020 CMP, Serum P Normal Na 141 mEq/L 136-145 Final [facility] or Plasma mEq/L Hospita l (Lab): [address] [place] [address] ? ? P Normal K 3.8 mEq/L 3.5-5.1 Final [facility] e mEq/L Hospital (Lab): [address] [place] [address] ? ? P Normal Cl 105 mEq/L 98-107 Final [facility] mEq/L Hospital (Lab): [address] [place] [address] ? ? P Normal Co2 28 mEq/L 21-31 Final [facility] mEq/L Hospital (Lab): [address] [place] [address] ? ? P ? Agap 11.6 ? Final [facility] calculation Hospi ingrid (Lab): [address] [place] [address] ? ? P Normal Glu 88 mg/dL 70-100 [facility] (Lab[facility] [address] [place] [address] ? ? P High Bun 20 mg/dL 7-18 Final [facility] mg/dL Hospital (Lab): [address] [place] [address] ? ? P Normal Creat 1.28 mg/dL 0.70-1.30 Final [facility] mg/dL Hospital (Lab): [address] [place] [address] ? ? P ? Bn/cr 15.6 ratio ? Final [facility] (Lab): [address] [place] [address] ? ? P Low Ca 8.4 mg/dL 8.5-10.1 Final [facility] ge mg/dL Hospital (Lab): [address] [place] [address] ? ? P Normal Alkp 82 U/L 38-126 Final [facility] U/L Hospital (Lab): [address] [place] [address] ? ? P Normal Alt 25 U/L 16-63 U/L Final [facility] (Lab): [address] [place] [address] ? ? P Normal Ast 19 U/L 15-37 U/L Final [facility] (Lab): [address] [place] [address] ? ? P Normal Tbil 0.6 mg/dL <=1.2 Final [facility] mg/dL Hospital (Lab): [address] [place] [address] ? ? P Normal Tp 7.1 g/dL 6.4-8.2 Final [facility] g/dL Hospital (Lab): [address] [place] [address] ? ? P Normal Alb 3.9 g/dL 3.4-5.0 [facility] ([facility] [address] [place] [address] ? ? P ? Glob 3.26 mg/dL ? Final [facility] (Lab): [address] [place] [address] ? ? P ? A/g 1.2 calc ? Final [facility] (Lab): [address] [place] [address] ? ? P ? Egfraa 66.22 ? Final [facility] (Lab): [address] [place] [address] ? ? P ? Egfrnaa 54.64 ? Final [facility] (Lab): [facility] 05/04/2020 CBC W/ Auto WB Normal Wbc 6.6 4.8-10.8 [facility] 10^3/mm^3 10^3/mm^3 Hosp ital (Lab): [facility] ? ? WB Normal Rbc 4.64 4.20-5.90 [facility] 10^6/mm^3 10^6/mm^3 Hosp ital (Lab): [facility] ? ? WB Normal Hgb 14.4 g/dL 13.5-17.5 [facility] age g/dL Hospital (Lab): [facility] ? ? WB Normal Hct 44 % 40-50 % Final [facility] (Lab): [facility] ? ? WB Normal Mcv 94.2 fL 80.0-97.0 Final [facility] (Lab): [facility] ? ? WB Normal Mch 31.0 pg 27.5-32.1 Final [facility] pg Hospital (Lab): [facility] ? ? WB Normal Mchc 33 g/dL 33-36 Final [facility] g/dL Hospital (Lab): [facility] ? ? WB Normal Rdw 13.3 % 11.6-14.8 Final [facility] % Hospital (Lab): [facility] ? ? WB Normal Platelets 195 150-400 [facility] 10^3/mm^3 10^3/mm^3 Hosp ital (Lab): [facility] ? ? WB Normal Ne# 4.60 1.20-6.70 [facility] 10^3/mm^3 10^3/mm^3 Hosp ital (Lab): [facility] ? ? WB Normal Ly# 1.32 1.20-3.40 [facility] 10^3/mm^3 10^3/mm^3 Hosp ital (Lab): [facility] ? ? WB Normal Mo# 0.59 0.11-0.70 [facility] 10^3/mm^3 10^3/mm^3 Hosp ital (Lab): [address] [facility] ? ? WB Normal Eo# 0.04 0.00-0.70 Final [place] 10^3/mm^3 10^3/mm^3 Hosp ital (Lab): [address] [facility] ? ? WB Normal Ba# 0.02 0.00-0.20 Final [facility] 10^3/mm^3 10^3/mm^3 Hosp ital (Lab): [address] [place] [address] ? ? WB Normal Neut% 70 % per 100 40-74 % Final [facility] WBC per 100 Hospital WBC (Lab): [address] [place] [address] ? ? WB Normal Ly% 20 % per 100 19-48 % Final [facility] WBC per 100 Hospital WBC (Lab): [address] [place] [address] ? ? WB Normal Mo% 9.0 % per 3.0-10.0 [facility] % per 100 Hospit al WBC (Lab): [address] [place] [address] ? ? WB Low Eo% 0.6 % per 1.0-7.0 % Final [facility] 100 WBC per 100 Hospital WBC (Lab): [address] [place] [address] ? ? WB Normal Ba% 0.3 % per 0.0-2.0 % Final [facility] 100 WBC per 100 Hospital WBC (Lab): [address] [place] [address] 10/04/2019 Prothrombin P Normal Pt 9.9 sec 9.1-11.0 Final [facility] Time sec Hospital (Lab): [address] [place] [address] ? ? P ? Inr 0.99 ? Final [facility] (Lab): [address] [place] [address] Past Encounters None recorded. Social History Tobacco Smoking Status Former Smoker Notes: 01/02/19 Vaccine List None recorded. Plan of Care Reminders Provider Appointments None ? ? recorded. Lab None ? ? recorded. Referral None ? ? recorded. Procedures None ? ? recorded. Surgeries None ? ? recorded. Imaging None ? ? recorded. Vitals 01/02/2019 09:30AM PODIATRY FOLLOW UP Height Weight BMI Blood Pressure 167.64 cm 85.73 kg 30.5 kg/m2 126/68 mm[Hg] 11/28/2018 11:00AM PODIATRY NEW PATIENT Height Weight BMI Blood Pressure 167.64 cm 85.73 kg 30.5 kg/m2 102/52 mm[Hg]
[2020-07-22 11:07] LABS: Prothrombin Time 42.2 sec (9.3-11.0)
[2020-07-22 11:55] LABS: INR 4.4 (0.9-1.1)
== END 2020-07-22 02:33 ==
PROVIDERS: PCP Family Medicine; Visit Provider Family Medicine
DX: I48.91 Unspecified atrial fibrillation (principal); Z79.01 Long term (current) use of anticoagulants
CPT/HCPCS: 36415; 85610

== ENCOUNTER 2020-07-24 02:18 | Outpatient (CLI) | payer MEDICARE, SELFPAY ==
[2020-07-24 10:35] LABS: INR 2.2 (0.9-1.1); Prothrombin Time 21.5 sec (9.3-11.0)
== END 2020-07-24 02:38 ==
PROVIDERS: PCP Family Medicine; Visit Provider Family Medicine
DX: I48.91 Unspecified atrial fibrillation (principal); Z79.01 Long term (current) use of anticoagulants
CPT/HCPCS: 36415; 85610

== ENCOUNTER 2020-08-04 03:59 | Outpatient (CLI) | payer MEDICARE, SELFPAY ==
[2020-08-04 12:29] LABS: INR 3.5 (0.9-1.1); Prothrombin Time 33.7 sec (9.3-11.0)
== END 2020-08-04 04:19 ==
PROVIDERS: PCP Family Medicine; Visit Provider Family Medicine
DX: I48.91 Unspecified atrial fibrillation (principal); Z79.01 Long term (current) use of anticoagulants
CPT/HCPCS: 36415; 85610

== ENCOUNTER 2020-08-07 11:35 | Outpatient (CLI) | payer MEDICARE, SELFPAY ==
--- NOTE | 2020-08-07 16:01 | DI.RAD_ITS ---
EXAM: XR KNEE RT 3V AP,LAT,[place] CLINICAL HISTORY: Pain lasting longer than 4 weeks. M25.561 PAIN RT KNEE. TECHNIQUE: 2D digital imaging was performed. COMPARISON: CR RIGHT KNEE 3 VIEWS from 10/23/2009 FINDINGS: There is no evidence of fracture. There is a joint effusion noted. There is significant narrowing o f the medial compartment now evident. Also significant degenerative changes of the patellofemoral co mpartment. No osseous lesions. IMPRESSION: Degenerative changes as above which have difficultly progressed from 2009 Joint effusion noted. This may signify no additional internal derangement. DATA REPOSITORY: RADIATION DOSE DELIVERED:
== END 2020-08-07 11:55 ==
PROVIDERS: PCP Family Medicine; Visit Provider Nurse Practitioner Family
DX: M17.11 Unilateral primary osteoarthritis, right knee (principal); M25.461 Effusion, right knee
CPT/HCPCS: 73562

== ENCOUNTER 2020-08-13 04:44 | Outpatient (CLI) | payer MEDICARE, SELFPAY ==
[2020-08-13 15:48] LABS: Prothrombin Time 19.9 sec (9.3-11.0)
== END 2020-08-13 05:04 ==
PROVIDERS: PCP Family Medicine; Visit Provider Family Medicine
DX: I48.91 Unspecified atrial fibrillation (principal); Z79.01 Long term (current) use of anticoagulants
CPT/HCPCS: 36415; 85610

== ENCOUNTER 2020-08-20 04:28 | Outpatient (CLI) | payer MEDICARE, SELFPAY ==
[2020-08-20 13:36] LABS: INR 2.5 (0.9-1.1); Prothrombin Time 24.3 sec (9.3-11.0)
== END 2020-08-20 04:48 ==
PROVIDERS: Family Medicine; PCP Family Medicine; Visit Provider Family Medicine
DX: I48.91 Unspecified atrial fibrillation (principal); Z79.01 Long term (current) use of anticoagulants
CPT/HCPCS: 36415; 85610

== ENCOUNTER 2020-08-27 19:52 | Outpatient (REF) | payer MEDICARE, SELFPAY ==
[2020-08-27 22:04] LABS: HCT 45.6 % (40.0-50.0); HGB 15.3 g/dL (13.5-17.5); MCHC 33.6 % (32.0-36.0); MCV 92.5 fL (80-95); MPV 10.1 fL (8.0-11.0); Platelet Count 206 10^3/uL (130-400); RBC 4.93 10^6/uL (4.36-5.78); RDW 12.6 % (11.8-14.1); WBC 5.65 10^3/uL (4.4-10.8)
[2020-08-27 22:17] LABS: INR 1.8 (0.9-1.1); Prothrombin Time 17.7 sec (9.3-11.0)
== END 2020-08-27 20:12 ==
LOC: LBN 19:52
PROVIDERS: PCP Family Medicine; Visit Provider Emergency Medicine
DX: R10.9 Unspecified abdominal pain (principal); I48.91 Unspecified atrial fibrillation
CPT/HCPCS: 85027; 85610

== ENCOUNTER 2020-09-03 03:47 | Outpatient (CLI) | payer MEDICARE, SELFPAY ==
[2020-09-03 11:38] LABS: INR 2.9 (0.9-1.1); Prothrombin Time 28.6 sec (9.3-11.0)
== END 2020-09-03 03:48 | disposition home or self-care (01) ==
LOC: LBO 03:47
PROVIDERS: PCP Family Medicine; Visit Provider Family Medicine
DX: I48.91 Unspecified atrial fibrillation (principal); Z79.01 Long term (current) use of anticoagulants
CPT/HCPCS: 36415; 85610

== ENCOUNTER 2020-09-10 03:02 | Outpatient (CLI) | payer MEDICARE, SELFPAY ==
[2020-09-10 15:27] LABS: INR 3.3 (0.9-1.1); Prothrombin Time 32.4 sec (9.3-11.0)
== END 2020-09-10 03:03 | disposition home or self-care (01) ==
LOC: LBO 03:02
PROVIDERS: Family Medicine; PCP Family Medicine; Visit Provider Family Medicine
DX: I48.91 Unspecified atrial fibrillation (principal); Z79.01 Long term (current) use of anticoagulants
CPT/HCPCS: 36415; 85610

== ENCOUNTER → 2020-09-18 10:14 | Outpatient (BNVA) | payer MEDICARE, SELFPAY | PROVIDERS: PCP Family Medicine; Referring Provider Family Medicine; Visit Provider Student in an Organized Health Care Education/Training Program | DX: M17.11 Unilateral primary osteoarthritis, right knee (principal); M25.561 Pain in right knee; Z96.652 Presence of left artificial knee joint | CPT/HCPCS: 99214 ==

== ENCOUNTER 2020-09-24 02:35 | Outpatient (CLI) | payer MEDICARE, SELFPAY ==
[2020-09-24 12:02] LABS: INR 2.4 (0.9-1.1); Prothrombin Time 23.5 sec (9.3-11.0)
== END 2020-09-24 02:36 | disposition home or self-care (01) ==
LOC: LBO 02:35
PROVIDERS: PCP Family Medicine; Visit Provider Family Medicine
DX: I48.91 Unspecified atrial fibrillation (principal); Z79.01 Long term (current) use of anticoagulants
CPT/HCPCS: 36415; 85610

== ENCOUNTER 2020-10-01 14:32 | Outpatient (REF) | payer MEDICARE, SELFPAY ==
[2020-10-01 22:22] LABS: Abs Immature Grans 0.01 10^3/uL (0.0-0.06); Absolute Basophil Count 0.03 10^3/uL (0.0-0.2); Absolute Eosinophil Count 0.18 10^3/uL (0.0-0.7); Absolute Lymphocyte Count 1.17 10^3/uL (1.2-3.4); Absolute Monocyte Count 0.39 10^3/uL (0.1-0.8); Basophils % 0.6; Eosinophils % 3.5; HCT 46.6 % (40.0-50.0); HGB 15.3 g/dL (13.5-17.5); Immature Grans % 0.2; MCHC 32.8 % (32.0-36.0); MCV 94.5 fL (80-95); MPV 10.9 fL (8.0-11.0); Monocytes % 7.7; Nucleated RBC 0 %; Platelet Count 216 10^3/uL (130-400); RBC 4.93 10^6/uL (4.36-5.78); RDW 12.3 % (11.8-14.1); RDW-SD 42.9 fL; WBC 5.08 10^3/uL (4.4-10.8)
[2020-10-01 22:45] LABS: ALT 29 U/L (16-63); AST 24 U/L (15-37); Albumin 4.2 g/dL (3.4-5.0); Alkaline Phosphatase 90 U/L (46-116); Anion Gap 8.8 mmol/L (3-11); BUN 17 mg/dL (7-18); CO2 27.2 mmol/L (21.0-32.0); CREATININE 1.1 mg/dL (0.70-1.30); Calcium 9.3 mg/dL (8.5-10.1); Calculated LDL 36 mg/dL (<100); Chloride 107 mmol/L (98-107); Cholesterol 117 mg/dL (<200); Glucose 96 mg/dL (74-106); HDL Cholesterol 39 mg/dL (40-60); Lipase 118 U/L (73-393); Potassium 4.2 mmol/L (3.5-5.1); Sodium 143 mmol/L (136-145); Total Protein 7.5 g/dL (6.4-8.2); Triglyceride 211 mg/dL (<150)
[2020-10-01 23:24] LABS: Amylase 101 U/L (25-115)
== END 2020-10-01 14:33 | disposition home or self-care (01) ==
LOC: NCHCN 14:32
PROVIDERS: PCP Family Medicine; Visit Provider Emergency Medicine
DX: I25.10 Atherosclerotic heart disease of native coronary artery without angina pectoris (principal); R10.9 Unspecified abdominal pain
CPT/HCPCS: 80053; 80061; 83690; 82150; 85025

== ENCOUNTER 2020-10-08 02:04 | Outpatient (CLI) | payer MEDICARE, SELFPAY ==
[2020-10-08] MEDS: Omnipaque 350 MG/ML 50 ML BTL IJ (10:51)
[2020-10-08] MEDS: Breeza Beverage 473 ML BTL PO ×2 (10:52→10:53)
[2020-10-08] MEDS: Normal Saline - Diluent 50 ML VIAL IV (12:36)
[2020-10-08] MEDS: Omnipaque 350 MG/ML 100 ML BTL IJ (12:37)
--- NOTE | 2020-10-08 12:37 | DI.CT_ITS ---
EXAM: CT ABDOMEN PELVIS W CLINICAL HISTORY: ABD PAIN,r10.9 TECHNIQUE: Imaging Protocol: Axial computed tomography images with coronal and sagittal reformatted images were created and reviewed CONTRAST MATERIAL: Intravenous: Omnipaque 350 Contrast volume:100 mL Oral: Yes CT CT BRAIN NECK CTA from 07/16/2020 FINDINGS: ABDOMEN: Lung Bases: Marked coronary artery calcification. Liver: Normal density. No measurable mass. Portal, Superior Mesenteric, and Splenic Veins: Unremarkable. Gallbladder and Biliary Tract: Cholelithiasis. No biliary ductal dilatation. Pancreas: Normal density, no abnormal calcifications or inflammatory process. Spleen: Normal. Adrenals: No masses seen. Kidneys: Normal size, contour and axis. No radiodense stones or obstructive uropathy. No masses seen. Abdominal Aorta: Abdominal portion non-dilated. Moderate atherosclerosis. Bowel: No obstruction or bowel wall thickening. No evidence of appendicitis. Diverticulosis of the s igmoid colon but no evidence of acute diverticulitis. There is a duodenal diverticulum adjacent to t he head of the pancreas. Peritoneal Cavity: No ascites, collection or mesenteric inflammatory response. No free air. Lymph Nodes: Within normal limits. Bones: Within normal limits for the patient's age. The patient has a right total hip replacement. Soft Tissues: There is a moderately large fat containing left inguinal hernia. PELVIS: Bladder: Symmetric distention, no gross wall thickening. Portions of the urinary bladder obscured due to the artifact from the right hip prosthesis. Reproductive Organs: There is an enlarged prostate gland. Lymph Nodes: Within normal limits. Bones: Degenerative changes in the spine. IMPRESSION: 1. No acute abdominal or pelvic process. 2. Cholelithiasis. No biliary ductal dilatation. 3. Atherosclerosis and marked coronary artery calcification. 4. Sigmoid diverticulosis but no evidence of acute diverticulitis. 5. Enlarged prostate gland. RADIATION DOSE DELIVERED: 1,037.64mGy.cm Total DLP DATA REPOSITORY: All CT scans at this facility are submitted to the National Radiology Data Registry (NRDR) Dose Index Registry (DIR) with the [employer] ([employer]). RADIATION OPTIMIZATION: All CT scans at this facility use at least one of these dose optimization te chniques: automated exposure control; mA and/or kV adjustment per patient size (includes targeted exa ms where dose is matched to clinical indication); or iterative reconstruction.
== END 2020-10-08 02:24 ==
PROVIDERS: PCP Family Medicine; Visit Provider Emergency Medicine
DX: R10.9 Unspecified abdominal pain (principal); K80.20 Calculus of gallbladder without cholecystitis without obstruction; N40.0 Benign prostatic hyperplasia without lower urinary tract symptoms
CPT/HCPCS: 74177; J3490; Q9967

== ENCOUNTER 2020-10-21 03:39 | Outpatient (CLI) | payer MEDICARE, SELFPAY ==
[2020-10-21 12:29] LABS: INR 1.5 (0.9-1.1); Prothrombin Time 14.8 sec (9.3-11.0)
== END 2020-10-21 03:40 | disposition home or self-care (01) ==
LOC: LBO 03:40
PROVIDERS: Family Medicine; PCP Family Medicine; Visit Provider Emergency Medicine
DX: I48.91 Unspecified atrial fibrillation (principal); Z79.01 Long term (current) use of anticoagulants
CPT/HCPCS: 36415; 85610

== ENCOUNTER 2020-10-27 04:35 | Outpatient (CLI) | payer MEDICARE, SELFPAY | END 2020-10-27 04:36 | disposition home or self-care (01) | LOC: LBO 04:35 | PROVIDERS: PCP Family Medicine; Visit Provider Family Medicine | DX: K80.20 Calculus of gallbladder without cholecystitis without obstruction (principal); Z80.0 Family history of malignant neoplasm of digestive organs; G47.33 Obstructive sleep apnea (adult) (pediatric); K22.70 Barrett's esophagus without dysplasia; Z86.010 Personal history of colon polyps; K57.30 Diverticulosis of large intestine without perforation or abscess without bleeding | CPT/HCPCS: 99213 ==

== ENCOUNTER 2020-10-31 02:09 | Outpatient (CLI) | payer MEDICARE, SELFPAY ==
[2020-10-31 11:52] LABS: INR 2.5 (0.9-1.1); Prothrombin Time 24.9 sec (9.3-11.0)
== END 2020-10-31 02:10 | disposition home or self-care (01) ==
PROVIDERS: PCP Family Medicine; Visit Provider Family Medicine
DX: I48.91 Unspecified atrial fibrillation (principal); Z79.01 Long term (current) use of anticoagulants
CPT/HCPCS: 36415; 85610

== ENCOUNTER 2020-11-14 02:06 | Outpatient (CLI) | payer MEDICARE, SELFPAY ==
[2020-11-14 16:28] LABS: Prothrombin Time 29.6 sec (9.3-11.0)
== END 2020-11-14 02:07 | disposition home or self-care (01) ==
LOC: LBO 02:06
PROVIDERS: PCP Family Medicine; Visit Provider Emergency Medicine
DX: I48.91 Unspecified atrial fibrillation (principal); Z79.01 Long term (current) use of anticoagulants
CPT/HCPCS: 36415; 85610

== ENCOUNTER 2020-11-24 03:30 | Outpatient (CLI) | payer MEDICARE, SELFPAY ==
[2020-11-24 09:37] LABS: INR 1.2 (0.9-1.1); Prothrombin Time 11.6 sec (9.3-11.0)
[2020-11-24 10:33] LABS: Source Nasal/Nares
[2020-11-24 13:22] LABS: COVID-19 PCR Negative (Negative)
== END 2020-11-24 03:31 | disposition home or self-care (01) ==
LOC: LBO 03:30
PROVIDERS: PCP Family Medicine; Visit Provider Surgery
DX: I48.91 Unspecified atrial fibrillation (principal); Z79.01 Long term (current) use of anticoagulants; Z20.822 Contact with and (suspected) exposure to COVID-19; Z01.818 Encounter for other preprocedural examination
CPT/HCPCS: 36415; 87635; 85610

== ENCOUNTER 2020-11-25 09:19 | Day surgery (SDC) | payer MEDICARE, SELFPAY ==
[2020-11-25] VITALS (9 sets, daily range): BP systolic 95–119; BP diastolic 57–84; PULSE 32–89; RESP 14–18; TEMP 35.9–36.2; TEMPC 36.1; O2SAT 96–100; BMI 28.8
--- NOTE | 2020-11-25 10:04 | ANES.PREOP_ITS ---
General Info Date of Service Date Performed: 11/25/20 Height: 5 ft 6 in Weight: 81 kg Body Mass Index (BMI): 28.8 Surgical Procedure: Operation Date: 11/25/20 10:35 Proposed Procedures Side Surgeon p Colonoscopy/Gastroscopy Ivanna Grant DO Meds Allergies and Home Medications Allergies Allergy/AdvReac Type Severity Reaction Status Date / Time levothyroxine sodium Allergy Severe RASH, Verified 11/25/20 08:09 JOINT PAIN pravastatin Allergy Mild RASH Verified 11/25/20 08:09 dofetilide [From Tikosyn] AdvReac Severe Verified 11/25/20 08:09 esomeprazole AdvReac Severe DIARRHEA Verified 11/25/20 08:09 famotidine AdvReac Intermediate confusion Verified 11/25/20 08:09 simvastatin AdvReac Intermediate MYALGIAS Verified 11/25/20 08:09 Home Medication Medication Instructions Recorded multivitamin [Daily Vitamin] 1 ea PO DAILY 10/08/12 glucosam-chond nt-vtcxvl-lk ac 1 tab PO DAILY 02/15/13 acetaminophen [Tylenol Extra 500 mg PO Q6H PRN 05/25/18 Strength] baclofen 10 mg tablet 10 mg PO TID PRN #30 tab 07/15/20 amoxicillin 500 mg tablet 2,000 mg PO BID #4 tab 09/12/20 [id number] 150 unit 150 unit PO TID PRN 10/27/20 tablet nitroglycerin 0.4 mg sublingual 0.4 mg SUBLINGUAL PRN #25 tab 11/06/20 tablet bisacodyl 5 mg tablet,delayed 5 mg PO ONCE #4 tab 11/07/20 release polyethylene glycol 3350 17 17 g PO ONCE #238 g 11/07/20 gram/dose oral powder atorvastatin 40 mg tablet 40 mg PO DAILY #90 tab-cap 11/14/20 warfarin 5 mg tablet 5 mg PO QPM #90 tab 11/14/20 aspirin 81 mg PO DAILY 11/24/20 Current Visit Medications: Current Medications Generic Name Dose Route Start Last Admin Trade Name Freq PRN Reason Stop Dose Admin Ringer's Solution 1,000 mls @ 80 mls/hr 11/25/20 06:00 IV 12/24/20 23:59 INFUSION JESS IV Miscellaneous Supplies 1 each 11/25/20 06:00 Iv Access IV 12/24/20 23:59 DIRECTED JESS Sodium Chloride 0 ml 11/25/20 06:00 Normal Saline Flush 10 Ml Syr IV 12/24/20 23:59 PRN PRN Sodium Chloride 0 ml 11/25/20 06:00 Normal Saline 10 Ml Vial IJ 12/24/20 23:59 DIRECTED PRN Sterile Water 0 ml 11/25/20 06:00 Water,Injection,Sterile 10 Ml Vial IJ 12/24/20 23:59 DIRECTED PRN Vital Signs and Lab Results Vital Signs Most Recent Vital Signs in EMR: Most Recent Vital Signs Temp Pulse Resp BP Pulse Ox 35.9 C L 82 16 117/77 100 11/25/20 09:25 11/25/20 09:25 11/25/20 09:25 11/25/20 09:25 11/25/20 09:25 Point of Care Results Nursing Point of Care Results: No Data to Display Lab Results Blood Type / Crossmatch: No Data to Display Complete Blood Count: White Blood Count 5.08 10^3/uL (4.4-10.8) 10/01/20 12:25 10/01/20 Red Blood Count 4.93 10^6/uL (4.36-5.78) 10/01/20 12:25 10/01/20 Hemoglobin 15.3 g/dL (13.5-17.5) 10/01/20 12:25 10/01/20 Hematocrit 46.6 % (40.0-50.0) 10/01/20 12:25 10/01/20 Platelet Count 216 10^3/uL (130-400) 10/01/20 12:25 10/01/20 Complete Metabolic Panel: Sodium Level 143 mmol/L (136-145) 10/01/20 12:25 10/01/20 Potassium Level 4.2 mmol/L (3.5-5.1) 10/01/20 12:25 10/01/20 Chloride Level 107 mmol/L (98-107) 10/01/20 12:25 10/01/20 Carbon Dioxide Level 27.2 mmol/L (21.0-32.0) 10/01/20 12:25 10/01/20 Blood Urea Nitrogen 17 mg/dL (7-18) 10/01/20 12:25 10/01/20 Creatinine 1.1 mg/dL (0.70-1.30) 10/01/20 12:25 10/01/20 Magnesium Level 1.7 mg/dL (1.8-2.4) L 03/26/18 05:50 03/26/18 Calcium Level 9.3 mg/dL (8.5-10.1) 10/01/20 12:25 10/01/20 Albumin 4.2 g/dL (3.4-5.0) 10/01/20 12:25 10/01/20 Glucose Level 96 mg/dL (74-106) 10/01/20 12:25 10/01/20 C-Reactive Protein 0.39 mg/dL (0.0-0.3) H 03/26/18 09:55 03/26/18 Liver Function Panel: Alanine Aminotransferase (ALT/SGPT) 29 U/L (16-63) 10/01/20 12:25 10/01/20 Aspartate Amino Transf (AST/SGOT) 24 U/L (15-37) 10/01/20 12:25 10/01/20 Coagulation Panel: INR International Normalized Ratio 1.2 (0.9-1.1) H 11/24/20 09:22 11/24/20 Prothrombin Time 11.6 sec (9.3-11.0) H 11/24/20 09:22 11/24/20 Cardiac Panel: Troponin I < 0.02 ng/mL (0.00-0.06) 03/26/18 16:20 03/26/18 Arterial Blood Gas: No Data to Display Venous Blood Gas: No Data to Display Pancreas Panel: Amylase Level 101 U/L (25-115) 10/01/20 12:25 10/01/20 Lipase 118 U/L (73-393) 10/01/20 12:25 10/01/20 Thyroid Panel: Thyroid Stimulating Hormone (TSH) 3.61 uIU/mL (0.358-3.74) 03/06/15 15:45 03/06/15 Infectious Disease: Coronavirus (COVID-19)(PCR) Negative (Negative) 11/24/20 09:41 11/24/20 Coronavirus 2019 Source Nasal/nares 11/24/20 09:41 11/24/20 Hepatitis C Antibody Negative (NEGAT) 12/17/16 11:56 12/17/16 Blood Cultures: No Data to Display Toxicology Panel: No Data to Display [facility] Active Problems Active Problems: Problem Status Onset Code BPV (benign positional vertigo) H81.10 Chronic anticoagulation Z79.01 Polyp of colon K63.5 Low back pain, non-specific M54.5 Knee pain 02/15/13 M25.569 Family history of pancreatic cancer Z80.0 Hemorrhoid K64.9 Thoracic spine pain M54.6 Trapezius muscle spasm M62.838 Confusion R41.0 Neck pain M54.2 Knee pain, right M25.561 Diverticula of colon K57.30 Gallstones K80.20 Degenerative joint disease of right knee M17.11 Abdominal pain R10.9 Postural vertigo 03/09/16 Obstructive sleep apnea syndrome 05/07/12 G47.33 Night sweats 03/15/17 R61 Memory loss 03/15/17 R41.3 Hypothyroidism 06/16/12 E03.9 Hyperlipidemia 02/12/10 E78.5 Hiatal hernia 02/17/16 K44.9 Hearing loss H91.90 Generalized osteoarthrosis 03/28/13 M15.9 Benign prostatic hyperplasia with lower urinary tract symptoms 08/28/15 N40.1 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 Atrial fibrillation 02/11/12 I48.91 ASCVD (arteriosclerotic cardiovascular disease) 02/12/10 I25.10 GERD (gastroesophageal reflux disease) K21.9 Medical History Abdominal pain Actinic keratosis SCC ears 2004, lower lip ASCVD (arteriosclerotic cardiovascular disease) (02/12/10) JANUARY 2010 CATH AT [facility] [place] 90% LAD LESION STENTED Atrial fibrillation (02/11/12) unable to tadeo dofetilide (prolonged QT) on coumadin Bautista's esophagus Benign prostatic hyperplasia with lower urinary tract symptoms (08/28/15) Chest pain Degenerative joint disease of right knee Epigastric abdominal pain Esophagitis Gallstones Gastritis Generalized osteoarthrosis (03/28/13) Left TKA 3 Generalized osteoarthrosis (03/28/13) Left TKA 3 GERD (gastroesophageal reflux disease) Patient with symptoms consistent with GERD rather than chest pain of cardiopulmonary etiology. Has a history of esophagitis and currently on warfarin, therefore will have general surgery proceed with EGD. We will have him follow-up with PCP. 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 Memory loss (03/15/17) Benign memory loss of ageing Muscle strain of right gluteal region Night sweats (03/15/17) Obstructive sleep apnea syndrome (05/07/12) DX 04/12 AT [facility] [place] refuses CPAP Postural vertigo (03/09/16) Surgical History Arthroplasty of knee right; repair of torn meniscus CARDIAC CATH LEFT HEART 2009 H/O colonoscopy (~2015) Hemorrhoidal Banding (~2005) History of arthroscopy of knee History of esophagogastroduodenoscopy (EGD) (~2015) Hx of total knee replacement L Repair of inguinal hernia (~1984) RIGHT Rotator Cuff Repair RIGHT Status post hip replacement Status post inguinal hernia repair Status post rotator cuff repair Stent placement 2009;LAD Total replacement of hip (~06/2010) RIGHT Social History Smoking/Tobacco Use Status: Former Tobacco Use Quit Date: 08/01/71 Second Hand Exposure: No Smoking risk assessment performed?: Yes Alcohol Intake: never Drug use: Never Substance use type: does not use Caregiver/Support person: No Household members: spouse and other Details: 2 Housing: house Communication Needs: Hard of Hearing Do you need help understanding health information?: Rarely Pets and animals: No Sexually active: Yes Do you think of yourself as: straight/heterosexual Current gender identity: male What is your relationship status?: How often do you talk on the phone with friends or family?: three or more times per week How often do you get together with friends or relatives?: once per week How often do you attend christianity or hindu services?: 4 or more times per year Do you belong to any clubs or organized social groups?: no Panel score (0-1 are the most socially isolated patients): 3 What type of physical activity do you participate in: walking and bicycling Duration: > 90 minutes/day Frequency: daily Nalini/Nondenominational: Scientologist Special nalini needs: No Seatbelt use: always Helmet use: Yes Helmet use: always Additional Social history: unablet o assess privately Imaging and Studies Imaging and Studies Stress Test Summary:: Date of study: 03/27/2018 *PATIENT PRESENTATION* Height: 167.6cm (66in) Blood Pressure: Weight: 84.1kg (185lb) BSA: 2m^2 Ordering physician: Rochelle Hwang Impressions: Normal perfusion by [id number] Sestamibi Imaging. Summary: 1. Myocardial perfusion imaging: No myocardial perfusion defects noted. 2. The calculated left ventricular ejection fraction after stress: 57%. No left ventricular regional motion abnormality. Anesthesia Assessment and Plan Anesthesia History Personal History: No History of Anesthesia Complications Family History: No Family History of Anesthesia Complications Exercise Tolerance Exercise Tolerance: Metabolic Equivalents>4 (MPS reports METS of 1. Appears in good health denies CP, reports active and logging at home.) Pertinent Negatives Pertinent Negatives: No Symptoms of GERD, No Major Pulmonary Symptoms or Complaints and No History of CVA/TIA Cardiac & Pulmonary Exam Cardiac Exam: Other (Afib, stable to baseline ) Pulmonary Exam: Clear Bilateral Breath Sounds Airway Exam Known Difficult Airway: No Mallampati Class: 2 Mouth Opening: Normal (> 3cm) Thyromental Distance: Greater than 3 cm Neck Range of Motion: Full ROM Neck Circumference: Normal Teeth Condition: Normal Dentition ASA Classification ASA Score: ASA 2 ASA Emergency: No NPO Status NPO Status: NPO Clears >2 hours, Solids >8 hours Anesthesia Plan Anesthesia Technique: General Anesthesia Airway Planned: Natural Airway Pain Management: Surgeon and patient request nerve block Monitors Used: Standard Monitors
[2020-11-25] MEDS: Lactated Ringers 1,000 ML 80 ML IV (10:06)
--- NOTE | 2020-11-25 11:04 | STOM_PTH ---
PATIENT: Les Carlson LOC: [facility] U#:[id number] AGE/SX: 75/M ROOM: RE11/25/[address]: Ivanna Grant : 1945 BED: DIS: 11/25/2020 SPEC #: [id number] RECD: 11/25/20 12:55 STATUS: ALIX RE #: [id number] HEIDI: 11/25/20 11:[address]: Ivanna Grant DEPT: Surgical Specimen RECD BY: Sahra Guo ENTERED: 11/25/20 12:56 SP TYPE: STOMACH OTHR DR: Grabiel Crabtree MD Tissues: 1 - BIOPSY BOWEL 2 - BIOPSY BOWEL 3 - STOMACH BIOPSY 4 - STOMACH BIOPSY 5 - ESOPHAGUS BIOPSY 6 - ESOPHAGUS BIOPSY Procedures: GROSS AND MICRO LEVEL 4 Comments: [id number]
--- NOTE | 2020-11-25 12:30 | RT.EKG_ITS ---
APPROVED REPORT Exam: Resting ECG Patient Location: O HR:58 bpm ECG Measurements Heart Rate 58 AXIS MT [id number] P [id number] QRSd 97 QRS 9 QT 470 T 74 QTc 461 Conclusion Atrial fibrillation...V-rate 52- 57, irreg A-activity Ventricular premature complex...V complex w/ short R-R interval Anteroseptal infarct, age indeterminate...Q >35mS, T neg, V1-V2
--- NOTE | 2020-11-25 13:04 | ANES.POST_ITS ---
Postoperative Evaluation Date, Time and Location Date Performed: 11/25/20 Time Performed: 13:04 Patient Location: Day Surgery Unit Vital Signs Most Recent Imported Vital Signs: Most Recent Vital Signs Temp Pulse Resp BP Pulse Ox 36.1 C L 32 L 14 117/71 100 11/25/20 12:36 11/25/20 12:36 11/25/20 12:36 11/25/20 12:36 11/25/20 12:36 Most Recent Manually Entered Vital Signs: Adult (Patients BP cindy to 58 bpm. 12- lead EKG confirmed. Patient asymptomatic. ) Blood Pressure: 117/71 Heart Rate: 58 Respirations: 14 Oxygen Saturation (%): 100 Temperature (C): 36.1 C Pain Score (0-10 Scale): 0 Assessment Mental Status: Awake (Alert & Oriented to Patient Baseline) Airway and Respiratory Function: Patent airway with normal (patient baseline) respiratory exam Cardiovascular Function: Hemodynamically Stable Hydration Status: Adequately Hydrated Nausea & Vomiting: No Nausea or Vomiting Pain: Pt. Denies Any Pain Peripheral Nerve Block: Patient did not receive a nerve block
--- NOTE | 2020-11-25 14:00 | W.PM.DSUDISC ---
Discharge Plan Disposition Patient Disposition: HOME Condition: Good Discharge Details Reason For Visit: stomach and colon scope Attending Provider: Ivanna Grant Primary Care Provider: Grabiel Crabtree Home Meds and New Rx's Prescriptions: Continued baclofen 10 mg tablet 10 mg PO TID PRN (Reason: muscle spasm) Qty: 30 RF: 1 Beano 150 unit tablet 150 unit PO TID PRNRF: 0 multivitamin [Daily Vitamin] 1 EACH tablet 1 ea PO DAILY RF: 0 glucosam-chond wa-wbgbdl-yn ac 1 EACH capsule 1 tab PO DAILY RF: 0 nitroglycerin [Nitrostat] 0.4 mg tablet, sublingual 0.4 mg Sublingual PRN Qty: 25 RF: 4 atorvastatin 40 mg tablet 40 mg PO DAILY Qty: 90 RF: 4 warfarin 5 mg tablet 5 mg PO QPM Qty: 90 RF: 4 pantoprazole [Protonix] 40 mg tablet,delayed release (DR/EC) 40 mg PO DAILY Qty: 30 RF: 12 acetaminophen [Tylenol Extra Strength] 500 mg Tablet 500 mg PO Q6H PRNRF: 0 aspirin 81 mg Capsule,Delayed Release(Dr/Ec) 81 mg PO DAILY RF: 0 Discontinued amoxicillin 500 mg tablet 2,000 mg PO BID Qty: 4 RF: 0 bisacodyl [Dulcolax (bisacodyl)] 5 mg tablet,delayed release (DR/EC) 5 mg PO ONCE Qty: 4 RF: 0 polyethylene glycol 3350 17 gram/dose powder 17 g PO ONCE Qty: 238 RF: 0 Discharge Instructions Additional Instructions: Findings: doudenitis/esophagitis Follow up:10am w/ Haroon Trammell re:low heart rate and ZioPatch F/u Dr. Grant December 08 10:30am resume Coumadin on Please call if you develop: fevers >101.5 Nausea or Vomiting Abdominal pain that is not transient DAY SURGERY UNIT POST COLONOSCOPY INSTRUCTIONS 1. Because there will be medication in your system for the next 24 hours, you may feel a little sleepy. Your coordination will be affected. Therefore: a. Do not drive or operate dangerous equipment for 24 hours. b. Do not drink alcohol beverages for 24 hours (not even beer). c. Plan to go home and rest for the day. 2. Generally there are no restrictions on your activity after a day or so has gone by, but you may feel a bit fatigued for a few days. 3 After you arrive home you may have a light meal and return to a normal diet as you can tolerate it without feeling sick to your stomach. 4. After surgery, you may feel pain or discomfort. This should be only transient, but if it persists please contact your doctor. 5. If there are any questions regarding the findings of your procedure, please feel free to contact your doctor. 6. If you are unable to contact your doctor with a problem, contact the hospital at [phone]. 7. Continue all your regular medications unless directed otherwise. I understand the above instructions and have no questions. Signature of Patient or Responsible Adult Escort Date/Time Name of Responsible Adult Escort Signature of Nurse Date/Time Activity:: no strenuous activity or lifting over 20#'a x 24 hrs Diet:: small light meals x 24 hrs Discharge Orders Discharge Orders: Discharge Order (Routine); Ordered 11/25/20 Ordered By: Ivanna Grant DS: Diagnosis Discharge Diagnosis (1) Bradycardia: Status: Acute (2) Chronic anticoagulation: Status: Chronic (3) Diverticula of colon: Status: Acute (4) Obstructive sleep apnea syndrome: Status: Chronic (5) Atrial fibrillation: Status: Chronic (6) Bautista's esophagus: Status: Chronic (7) ASCVD (arteriosclerotic cardiovascular disease): Status: Chronic (8) GERD (gastroesophageal reflux disease): Status: Chronic (9) Hearing loss: Status: Chronic (10) Hiatal hernia: Status: Chronic
--- NOTE | 2020-11-25 14:12 | W.COLOREPORT ---
Date of service: 11/25/20 Time of Service: 14:12 Colonoscopy Report Date of procedure: 11/25/20 Pre-op diagnosis general: A. polyps Post-op diagnosis procedure note: other (diverticula ) Anesthesia Type: General:No Airway Complications: None Disposition: same day Retraction Time: 9mins Procedure Description: After informed consent was obtained the patient was taken to the procedure room and placed in a left decubitous position. Monitors were applied and a time out was done. The patients name, date of , procedure, allergies to medications and metal in their body was reviewed. The patient was then sedated. Once sedated and comfortable a rectal exam was done. External exam was normal. Internal exam revealed a normal sphincter tone and no palpable masses. The scope was then introduced and retrofelexed. No internal hemorrhoids were identified. The scope was then advanced to the cecum without difficulty. The TI and appendiceal orifice were identified. The prep was good. The scope was then slowly retracted over 9 minutes back into the rectum. No polyps. Minior diverticular Dx to confined to sigmoid colon. No signs of bleeding or infection. The scope was removed and the patient was woken up and taken back to Same day surgery in stable condition. The patient tolerated the procedure well and there were no immediate complications. Follow up: The patient does not require any further routine screening colonoscopies, unless they develop changes in bowel habits or other new gastrointestinal complaints.
--- NOTE | 2020-11-25 14:14 | W.PM.ENDDOP ---
Date of service: 11/25/20 Time of Service: 14:14 Endoscopy Report DATE OF PROCEDURE: 11/25/20 PRE-OP DIAGNOSIS: abomdinal pain POST-OP DIAGNOSIS: other (duodenitis/esopahgitis/hx of williamson's ) SURGEON: Ivanna Grant ANESTHESIA TYPE: General:No Airway PATHOLOGY: other COMPLICATIONS: None DISPOSITION: same day PROCEDURE DESCRIPTION: After informed consent was obtained the patient was take to the procedure room and placed in a supine position. Monitors were applied and a time out was done. The patients name, date of , procedure type, allergies to medications and metal in their body was reviewed. A bite block was placed and the patient was sedated. Once sedated and comfortable the gastroscope was advanced through the oropharynx which was grossly normal into the esophagus. The proximal and mid-esophagus were nl. In the distal esophagus there was some mild irritation and inflammation. The transition zone is very irregular and there are changes that could be associated with Williamson's. There are no ulcerations. Biopsies are done. Noted. The scope was advanced into the stomach and through the pylorus into the 3rd portion of the duodenum. The there is some mild erythema and inflammation noted in the duodenal bulb. There are biopsies were done. All specimen is retrieved and no bleeding is noted the scope was retracted back into the stomach and biopsies were done to rule out H. pylori. There were no ulcers/gastrotos. The scope was retroflexed. The cardia and fundus were noted to be normal. There is no hiatal hernia noted. The scope was retracted back into the esophagus and biopsies were done of the GE junction to rule out Williamson's. The Z line was irregular. The scope was removed and the patient was woken up and taken back to [facility] in stable condition.
== END 2020-11-25 14:59 | disposition home or self-care (01) ==
PROVIDERS: PCP Family Medicine; Visit Provider Surgery
PROC: (CPT 43239; principal; 2020-11-25 10:30)
DX: Z12.11 Encounter for screening for malignant neoplasm of colon (principal); K29.80 Duodenitis without bleeding; K21.00 Gastro-esophageal reflux disease with esophagitis, without bleeding; K57.30 Diverticulosis of large intestine without perforation or abscess without bleeding; Z86.010 Personal history of colon polyps
CPT/HCPCS: 43239; G0105; 88305; 93005; 93010; J2001

== ENCOUNTER 2020-12-01 02:37 | Outpatient (CLI) | payer MEDICARE, SELFPAY ==
[2020-12-01 12:05] LABS: INR 1.2 (0.9-1.1); Prothrombin Time 11.9 sec (9.3-11.0)
== END 2020-12-01 02:38 | disposition home or self-care (01) ==
LOC: LBO 02:38
PROVIDERS: PCP Family Medicine; Visit Provider Surgery
DX: I48.91 Unspecified atrial fibrillation (principal); Z79.01 Long term (current) use of anticoagulants; N40.1 Benign prostatic hyperplasia with lower urinary tract symptoms; R35.1 Nocturia; Z79.899 Other long term (current) drug therapy; R00.1 Bradycardia, unspecified
CPT/HCPCS: 36415; 93246; 99213; 85610

== ENCOUNTER 2020-12-01 02:45 | Outpatient (CLI) | payer MEDICARE, SELFPAY | END 2020-12-01 02:46 | disposition home or self-care (01) | LOC: RT 02:45 | PROVIDERS: PCP Family Medicine; Visit Provider Nurse Practitioner Family | DX: N40.1 Benign prostatic hyperplasia with lower urinary tract symptoms (principal); R35.1 Nocturia; Z79.899 Other long term (current) drug therapy; R00.1 Bradycardia, unspecified | CPT/HCPCS: 93246; 99213 ==

== ENCOUNTER → 2020-12-08 10:20 | Outpatient (BNVA) | payer MEDICARE, SELFPAY | PROVIDERS: PCP Family Medicine; Referring Provider Family Medicine; Visit Provider Surgery | DX: Z48.815 Encounter for surgical aftercare following surgery on the digestive system (principal); K44.9 Diaphragmatic hernia without obstruction or gangrene; K22.70 Barrett's esophagus without dysplasia; G47.33 Obstructive sleep apnea (adult) (pediatric); K57.30 Diverticulosis of large intestine without perforation or abscess without bleeding | CPT/HCPCS: 99212; 99213 ==

== ENCOUNTER 2020-12-09 03:38 | Outpatient (CLI) | payer MEDICARE, SELFPAY ==
[2020-12-09 13:58] LABS: INR 2.1 (0.9-1.1); Prothrombin Time 20.5 sec (9.3-11.0)
--- NOTE | 2020-12-18 08:44 | ZIOP_ITS ---
Date of service: 12/18/20 Time of Service: 08:44 14 Day Hotel Maintenance Technician Referring Provider:: Anais Indications:: Afib Note: This is a 14-day monitor order for indication of atrial fibrillation. ?Patient was in atrial fibrillation for the entirety of the recording with an average heart rate of 76 bpm. Maximum heart rate was 130 bpm ?There were 4 episodes of NSVT with the longest lasting 10 beats. There were rare PVCs. ?There were 8 pauses longer than 3 seconds with the longest lasting 3.3 seconds. The majority of these occurred during sleeping hours and were asymptomatic. ?There were 6 patient triggered events all associated with atrial fibrillation but a heart rate below 100bpm.
== END 2020-12-09 03:39 | disposition home or self-care (01) ==
LOC: LBO 03:38
PROVIDERS: Family Medicine; PCP Family Medicine; Visit Provider Family Medicine
DX: I48.91 Unspecified atrial fibrillation (principal); Z79.01 Long term (current) use of anticoagulants
CPT/HCPCS: 36415; 85610

== ENCOUNTER 2020-12-18 08:44 | Outpatient (CLI) | payer MEDICARE, SELFPAY | END 2020-12-18 08:45 | LOC: CARDO 03-20 16:06 | PROVIDERS: PCP Nurse Practitioner Family; Referring Provider Nurse Practitioner Family; Visit Provider Internal Medicine Cardiovascular Disease | DX: R00.1 Bradycardia, unspecified (principal); I48.91 Unspecified atrial fibrillation; I47.2 Ventricular tachycardia; I49.3 Ventricular premature depolarization | CPT/HCPCS: 93248 ==

== ENCOUNTER 2020-12-24 03:20 | Outpatient (CLI) | payer MEDICARE, SELFPAY ==
[2020-12-24 13:47] LABS: INR 2.7 (0.9-1.1); Prothrombin Time 26.2 sec (9.3-11.0)
== END 2020-12-24 03:21 | disposition home or self-care (01) ==
LOC: LBO 03:20
PROVIDERS: PCP Nurse Practitioner Family; Visit Provider Family Medicine
DX: I48.91 Unspecified atrial fibrillation (principal); Z79.01 Long term (current) use of anticoagulants
CPT/HCPCS: 36415; 85610

== ENCOUNTER → 2021-01-08 08:56 | Outpatient (BNVA) | payer MEDICARE, SELFPAY | PROVIDERS: PCP Nurse Practitioner Family; Referring Provider Nurse Practitioner Family; Visit Provider Physician Assistant | DX: M17.11 Unilateral primary osteoarthritis, right knee (principal) | CPT/HCPCS: 20610; J1040 ==

== ENCOUNTER 2021-01-21 02:17 | Outpatient (CLI) | payer MEDICARE, SELFPAY ==
[2021-01-21 11:37] LABS: INR 1.8 (0.9-1.1)
== END 2021-01-21 02:18 | disposition home or self-care (01) ==
LOC: LBO 02:18
PROVIDERS: PCP Nurse Practitioner Family; Visit Provider Nurse Practitioner Family
DX: I48.91 Unspecified atrial fibrillation (principal); Z79.01 Long term (current) use of anticoagulants
CPT/HCPCS: 36415; 85610

== ENCOUNTER 2021-02-04 02:53 | Outpatient (CLI) | payer MEDICARE, SELFPAY ==
[2021-02-04 11:29] LABS: INR 3.3 (0.9-1.1)
== END 2021-02-04 02:54 | disposition home or self-care (01) ==
LOC: LBO 02:53
PROVIDERS: PCP Nurse Practitioner Family; Visit Provider Nurse Practitioner Family
DX: I48.91 Unspecified atrial fibrillation (principal); Z79.01 Long term (current) use of anticoagulants
CPT/HCPCS: 36415; 85610

== ENCOUNTER 2021-02-18 03:06 | Outpatient (CLI) | payer MEDICARE, SELFPAY ==
[2021-02-18 12:27] LABS: Prothrombin Time 41.8 sec (9.3-11.0)
[2021-02-18 12:55] LABS: INR 4.3 (0.9-1.1)
== END 2021-02-18 03:07 | disposition home or self-care (01) ==
LOC: LBO 03:06
PROVIDERS: PCP Nurse Practitioner Family; Visit Provider Nurse Practitioner Family
DX: I48.91 Unspecified atrial fibrillation (principal); Z79.01 Long term (current) use of anticoagulants
CPT/HCPCS: 36415; 85610

== ENCOUNTER 2021-02-20 03:41 | Outpatient (CLI) | payer MEDICARE, SELFPAY ==
[2021-02-20 14:40] LABS: INR 2.3 (0.9-1.1); Prothrombin Time 22.6 sec (9.3-11.0)
== END 2021-02-20 03:42 | disposition home or self-care (01) ==
LOC: LBO 03:41
PROVIDERS: PCP Nurse Practitioner Family; Visit Provider Nurse Practitioner Family
DX: I48.91 Unspecified atrial fibrillation (principal); Z79.01 Long term (current) use of anticoagulants
CPT/HCPCS: 36415; 85610

== ENCOUNTER 2021-03-11 03:38 | Outpatient (CLI) | payer MEDICARE, SELFPAY ==
[2021-03-11 11:41] LABS: INR 2.7 (0.9-1.1); Prothrombin Time 26.7 sec (9.3-11.0)
== END 2021-03-11 03:39 | disposition home or self-care (01) ==
LOC: LBO 03:38
PROVIDERS: PCP Nurse Practitioner Family; Visit Provider Nurse Practitioner Family
DX: I48.91 Unspecified atrial fibrillation (principal); Z79.01 Long term (current) use of anticoagulants
CPT/HCPCS: 36415; 85610

== ENCOUNTER 2021-04-13 04:09 | Outpatient (CLI) | payer MEDICARE, SELFPAY ==
[2021-04-13 11:14] LABS: Prothrombin Time 29.1 sec (9.3-11.0)
== END 2021-04-13 04:10 | disposition home or self-care (01) ==
LOC: LBO 04:09
PROVIDERS: PCP Nurse Practitioner Family; Visit Provider Nurse Practitioner Family
DX: I48.91 Unspecified atrial fibrillation (principal)
CPT/HCPCS: 36415; 85610

== ENCOUNTER 2021-05-13 04:00 | Outpatient (CLI) | payer MEDICARE, SELFPAY ==
[2021-05-13 14:37] LABS: INR 2.5 (0.9-1.1); Prothrombin Time 24.7 sec (9.3-11.0)
== END 2021-05-13 04:01 | disposition home or self-care (01) ==
LOC: LBO 04:02
PROVIDERS: PCP Nurse Practitioner Family; Visit Provider Nurse Practitioner Family
DX: I48.91 Unspecified atrial fibrillation (principal)
CPT/HCPCS: 36415; 85610

== ENCOUNTER 2021-06-16 08:31 | Outpatient (CLI) | payer MEDICARE, SELFPAY ==
[2021-06-16 15:02] LABS: Prothrombin Time 29.3 sec (9.3-11.0)
== END 2021-06-16 08:32 | disposition home or self-care (01) ==
LOC: LBO 08:31
PROVIDERS: PCP Nurse Practitioner Family; Visit Provider Nurse Practitioner Family
DX: I48.91 Unspecified atrial fibrillation (principal); Z79.01 Long term (current) use of anticoagulants
CPT/HCPCS: 36415; 85610

== ENCOUNTER 2021-07-23 03:13 | Outpatient (CLI) | payer MEDICARE, SELFPAY ==
[2021-07-23 12:08] LABS: Prothrombin Time 29.7 sec (9.3-11.0)
== END 2021-07-23 03:14 | disposition home or self-care (01) ==
PROVIDERS: PCP Nurse Practitioner Family; Visit Provider Nurse Practitioner Family
DX: I48.91 Unspecified atrial fibrillation (principal)
CPT/HCPCS: 36415; 85610

== ENCOUNTER 2021-08-27 03:35 | Outpatient (CLI) | payer MEDICARE, SELFPAY ==
[2021-08-27 13:10] LABS: INR 2.6 (0.9-1.1); Prothrombin Time 25.8 sec (9.3-11.0)
== END 2021-08-27 03:36 | disposition home or self-care (01) ==
LOC: LBO 03:35
PROVIDERS: PCP Nurse Practitioner Family; Visit Provider Nurse Practitioner Family
DX: I48.91 Unspecified atrial fibrillation (principal)
CPT/HCPCS: 36415; 85610

== ENCOUNTER 2021-09-22 03:54 | Outpatient (CLI) | payer MEDICARE, SELFPAY ==
[2021-09-22 10:46] LABS: INR 2.6 (0.9-1.1); Prothrombin Time 25.6 sec (9.3-11.0)
== END 2021-09-22 03:55 | disposition home or self-care (01) ==
LOC: LBO 03:55
PROVIDERS: PCP Nurse Practitioner Family; Visit Provider Nurse Practitioner Family
DX: I48.91 Unspecified atrial fibrillation (principal); Z79.01 Long term (current) use of anticoagulants
CPT/HCPCS: 36415; 85610

== ENCOUNTER 2021-10-23 03:29 | Outpatient (CLI) | payer MEDICARE, SELFPAY ==
[2021-10-23 10:58] LABS: INR 2.5 (0.9-1.1)
== END 2021-10-23 03:30 | disposition home or self-care (01) ==
LOC: LBO 03:29
PROVIDERS: PCP Nurse Practitioner Family; Visit Provider Nurse Practitioner Family
DX: I48.91 Unspecified atrial fibrillation (principal)
CPT/HCPCS: 36415; 85610

== ENCOUNTER 2021-11-23 05:04 | Outpatient (CLI) | payer MEDICARE, SELFPAY ==
[2021-11-23 10:41] LABS: INR 2.1 (0.9-1.1); Prothrombin Time 20.3 sec (9.3-11.0)
== END 2021-11-23 05:05 | disposition home or self-care (01) ==
LOC: LBO 05:05
PROVIDERS: PCP Nurse Practitioner Family; Visit Provider Nurse Practitioner Family
DX: I48.91 Unspecified atrial fibrillation (principal); Z79.01 Long term (current) use of anticoagulants
CPT/HCPCS: 36415; 85610

== ENCOUNTER 2021-12-08 20:59 | Outpatient (REF) | payer MEDICARE, SELFPAY ==
[2021-12-10 11:33] LABS: COVID-19 RT-PCR UVMMC Result Negative (Negative)
== END 2021-12-08 21:00 | disposition home or self-care (01) ==
LOC: LBN 20:59
PROVIDERS: PCP Nurse Practitioner Family; Visit Provider Family Medicine
DX: Z20.822 Contact with and (suspected) exposure to COVID-19 (principal); J06.9 Acute upper respiratory infection, unspecified
CPT/HCPCS: U0003; U0005

== ENCOUNTER 2021-12-24 03:08 | Outpatient (CLI) | payer MEDICARE, SELFPAY ==
[2021-12-24 14:14] LABS: INR 1.7 (0.9-1.1); Prothrombin Time 16.5 sec (9.3-11.0)
== END 2021-12-24 03:09 | disposition home or self-care (01) ==
LOC: LBO 03:08
PROVIDERS: PCP Nurse Practitioner Family; Visit Provider Nurse Practitioner Family
DX: I48.91 Unspecified atrial fibrillation (principal); Z79.01 Long term (current) use of anticoagulants
CPT/HCPCS: 36415; 85610

== ENCOUNTER 2022-01-12 02:24 | Outpatient (CLI) | payer MEDICARE, SELFPAY | END 2022-01-12 02:25 | disposition home or self-care (01) | LOC: LBO 02:24 | PROVIDERS: PCP Nurse Practitioner Family; Visit Provider Nurse Practitioner Family ==

== ENCOUNTER 2022-01-14 04:12 | Outpatient (CLI) | payer MEDICARE, SELFPAY ==
[2022-01-14 12:34] LABS: Prothrombin Time 19.4 sec (9.3-11.0)
== END 2022-01-14 04:13 | disposition home or self-care (01) ==
LOC: LBO 04:14
PROVIDERS: PCP Nurse Practitioner Family; Visit Provider Nurse Practitioner Family
DX: I48.91 Unspecified atrial fibrillation (principal); Z79.01 Long term (current) use of anticoagulants
CPT/HCPCS: 36415; 85610

== ENCOUNTER 2022-01-21 03:31 | Outpatient (CLI) | payer MEDICARE, SELFPAY ==
[2022-01-21 14:18] LABS: INR 1.9 (0.9-1.1); Prothrombin Time 18.1 sec (9.3-11.0)
== END 2022-01-21 03:32 | disposition home or self-care (01) ==
LOC: LBO 03:31
PROVIDERS: PCP Nurse Practitioner Family; Visit Provider Nurse Practitioner Family
DX: I48.91 Unspecified atrial fibrillation (principal); Z79.01 Long term (current) use of anticoagulants
CPT/HCPCS: 36415; 85610

== ENCOUNTER 2022-02-03 02:53 | Outpatient (CLI) | payer MEDICARE, SELFPAY ==
[2022-02-03 11:05] LABS: INR 2.6 (0.9-1.1); Prothrombin Time 24.5 sec (9.3-11.0)
== END 2022-02-03 02:54 | disposition home or self-care (01) ==
LOC: LBO 02:53
PROVIDERS: PCP Nurse Practitioner Family; Visit Provider Nurse Practitioner Family
DX: I48.91 Unspecified atrial fibrillation (principal); Z79.01 Long term (current) use of anticoagulants
CPT/HCPCS: 36415; 85610

== ENCOUNTER 2022-02-17 01:20 | Outpatient (CLI) | payer MEDICARE, SELFPAY ==
[2022-02-17 14:42] LABS: INR 1.8 (0.9-1.1); Prothrombin Time 17.5 sec (9.3-11.0)
== END 2022-02-17 01:21 | disposition home or self-care (01) ==
LOC: LBO 01:20
PROVIDERS: PCP Nurse Practitioner Family; Visit Provider Nurse Practitioner Family
DX: I48.91 Unspecified atrial fibrillation (principal); Z79.01 Long term (current) use of anticoagulants
CPT/HCPCS: 36415; 85610

== ENCOUNTER → 2022-02-22 01:40 | Outpatient (CLI) | payer MEDICARE, SELFPAY ==
--- NOTE | 2022-02-22 08:00 | DI.RAD_ITS ---
Exam(s) XR HIP LT COMPLETE AP PELVIS EXAM: XR HIP LT COMPLETE AP PELVIS CLINICAL HISTORY: low back/hip pain, M25.552, M54.5. TECHNIQUE: 2D digital imaging was performed. COMPARISON: No exams were available for comparison FINDINGS: Two views No pelvic nor hip fractures. Right hip prosthesis again noted. Left exhibits no fracture and no raymundo nt space narrowing IMPRESSION: DATA REPOSITORY: RADIATION DOSE DELIVERED:
--- NOTE | 2022-02-22 08:00 | DI.RAD_ITS ---
Exam(s) XR LUMBAR SPINE COMPLETE EXAM: XR LUMBAR SPINE COMPLETE CLINICAL HISTORY: back pain, M54.9. TECHNIQUE: 2D digital imaging was performed. COMPARISON: No exams were available for comparison FINDINGS: Six views No evidence of fracture or listhesis. No pars defects. Multilevel disc space narrowing and there is degenerative scoliosis convex right having apex at L3-4 level where there is asymmetric narrowing of the left side of the disc space. Right hip prosthesis noted. Sacroiliac joints unremarkable IMPRESSION: DATA REPOSITORY: RADIATION DOSE DELIVERED:
== END ==
PROVIDERS: PCP Nurse Practitioner Family; Visit Provider Family Medicine
DX: M25.552 Pain in left hip (principal); M54.59 Other low back pain; M54.9 Dorsalgia, unspecified; Z96.641 Presence of right artificial hip joint; M41.9 Scoliosis, unspecified; M17.11 Unilateral primary osteoarthritis, right knee
CPT/HCPCS: 20610; 72110; 73502; J1040

== ENCOUNTER 2022-03-08 03:46 | Outpatient (CLI) | payer MEDICARE, SELFPAY ==
[2022-03-08 12:53] LABS: INR 1.9 (0.9-1.1); Prothrombin Time 18.1 sec (9.3-11.0)
== END 2022-03-08 03:47 | disposition home or self-care (01) ==
LOC: LBO 03:47
PROVIDERS: PCP Nurse Practitioner Family; Visit Provider Nurse Practitioner Family
DX: I48.91 Unspecified atrial fibrillation (principal); Z79.01 Long term (current) use of anticoagulants
CPT/HCPCS: 36415; 85610

== ENCOUNTER 2022-03-15 02:46 | Outpatient (CLI) | payer MEDICARE, SELFPAY ==
[2022-03-15 14:43] LABS: INR 3.3 (0.9-1.1); Prothrombin Time 30.4 sec (9.3-11.0)
== END 2022-03-15 02:47 | disposition home or self-care (01) ==
LOC: LBO 02:46
PROVIDERS: PCP Nurse Practitioner Family; Visit Provider Nurse Practitioner Family
DX: I48.91 Unspecified atrial fibrillation (principal); Z79.01 Long term (current) use of anticoagulants
CPT/HCPCS: 36415; 85610

== ENCOUNTER 2022-03-22 04:00 | Outpatient (CLI) | payer MEDICARE, SELFPAY ==
[2022-03-22 14:22] LABS: INR 2.4 (0.9-1.1); Prothrombin Time 22.7 sec (9.3-11.0)
== END 2022-03-22 04:01 | disposition home or self-care (01) ==
LOC: LBO 04:00
PROVIDERS: PCP Nurse Practitioner Family; Visit Provider Nurse Practitioner Family
DX: I48.91 Unspecified atrial fibrillation (principal)
CPT/HCPCS: 36415; 85610

== ENCOUNTER 2022-04-12 03:38 | Outpatient (CLI) | payer MEDICARE, SELFPAY ==
[2022-04-12 14:09] LABS: INR 3.1 (0.9-1.1); Prothrombin Time 29.3 sec (9.3-11.0)
== END 2022-04-12 03:39 | disposition home or self-care (01) ==
LOC: LBO 03:38
PROVIDERS: PCP Nurse Practitioner Family; Visit Provider Nurse Practitioner Family
DX: I48.91 Unspecified atrial fibrillation (principal)
CPT/HCPCS: 36415; 85610

== ENCOUNTER → 2022-04-21 01:17 | Outpatient (CLI) | payer MEDICARE, SELFPAY ==
--- NOTE | 2022-04-21 10:45 | DI.MRI_ITS ---
Exam(s) MR LUMBAR SPINE WO EXAM: MR LUMBAR SPINE WO CLINICAL HISTORY: chronic low back pain, m54.5. TECHNIQUE: Multiplanar multisequence MRI of the Lumbar spine was performed. COMPARISON: CR XR LUMBAR SPINE COMPLETE from 02/22/2022 FINDINGS: As seen on the prior plain films there is a degenerative scoliosis convex right. Conus medullaris is at normal level. There is no evidence of conus mass nor subjacent clumping of in trathecal nerve roots to suggest arachnoiditis. The distal thecal sac appears unremarkable.There is no evidence of Tarlov intrasacral cysts nor other significant findings within the sacral canal Bones:There are no fractures nor ominous osseous lesions in the lumbar vertebral bodies and visualize d sacrum. With respect to the individual levels... T12-L1: Advanced disc space narrowing. No disc herniation or canal stenosis. No significant foramin al stenosis. L1-2: Advanced uniform disc space height loss. No disc herniation nor central canal stenosis.No fora vern stenosis L2-3: Advanced disc height loss, more so left side than right and there are prominent lateral left os teophytes evident at this level, as evident on the prior plain films. No disc herniation nor central canal stenosis.No foraminal stenosis on the right side. Minimal foraminal stenosis on the left side .Facet joints are relatively unremarkable. L3-4: This level exhibits asymmetric disc height loss, moderate on the right side and advanced on the left side. There also large left-sided osteophytes, as also evident on prior plain films. There is mild annular bulging but without a dominant disc herniation nor central canal stenosis. The exiting right neural foramen is nicely patent. There is also no significant foraminal stenosis on the left side, despite the advanced disc height loss on the left side at this level. Facet joints exhibit onl y minimal degenerative changes. L4-5: There is also asymmetric disc height loss at this level which is more prominent on the right si de than on the left side. There are also left-sided osteophytes at this level, as seen at the 2 leve ls above. There is no significant disc herniation at this level. Central canal dimensions are lower normal. There is mild foraminal stenosis on the right side at this level and no foraminal stenosis on the left side. Mom minimal degenerative facet arthropathy noted. L5-S1: This level exhibits some disc space narrowing but no evidence of disc herniation or central ca nal stenosis. There is also no foraminal stenosis on either side at this level. Minimal facet joint degenerative changes. Soft tissues: paraspinal soft tissues appear unremarkable. IMPRESSION: 1. Multilevel findings as described individually above. However, there is no dominant disc herniatio n nor significant central spinal canal stenosis and there is no prominent foraminal stenosis despite the chronic-type multilevel disc height loss. 2. There is only minimal facet arthropathy. 3. Mild degenerative scoliosis convex right noted, as evident on the prior 02/22/2022 plain films. T here are multilevel left-sided bridging osteophytes at the L2-3, L3-4, and L4-5 levels, as described above. DATA REPOSITORY:
== END ==
PROVIDERS: PCP Nurse Practitioner Family; Visit Provider Nurse Practitioner Family
DX: M25.78 Osteophyte, vertebrae (principal); M41.9 Scoliosis, unspecified
CPT/HCPCS: 72148

== ENCOUNTER 2022-05-12 08:36 | Outpatient (CLI) | payer MEDICARE, SELFPAY ==
--- NOTE | 2022-05-12 06:00 | DI.RAD_ITS ---
Exam(s) XR PAIN CLINIC SACRIOILIAC 2V EXAM: XR PAIN CLINIC SACRIOILIAC 2V CLINICAL HISTORY: Dx: Sacroiliac Joint Dysfunction TECHNIQUE: 2D and realtime digital imaging was performed. COMPARISON: No exams were available for comparison FINDINGS: C-arm fluoroscopy was utilized by Dr. Mckenna during left SI joint injection. Hard copy confirms inject ion at the left SI joint. IMPRESSION: RADIATION DOSE DELIVERED: Ka,r=5.4 1 mGy
[2022-05-12 08:48] VITALS: BP 114/67; PULSE 67; RESP 18; TEMP 37; O2SAT 96
[2022-05-12] MEDS: Omnipaque 240 MG/ML 50 ML BTL IJ (09:25)
[2022-05-12] MEDS: methylPREDNISolone ACETATE 80 MG/ML VIAL IJ (09:25)
[2022-05-12 09:27] VITALS: BP 135/86; PULSE 88; RESP 23; O2SAT 97
--- NOTE | 2022-05-12 13:59 | PDOC.PAIN ---
Pain Clinic Procedure Note Procedure Note Procedure Note: INTRA-ARTICULAR SI JOINT INJECTION Les Carlson has been referred to the Pain Management Center for intra-articular SI joint injection. COMMENTS: Pre-procedure pain VAS was 6/10 Dx: Left sacroiliac joint dysfunction Patient was interviewed and the medical record reviewed. There were no medical, pharmacologic, radiographic or other structural contraindications to attempting fluoroscopically guided intra-articular SI joint injection. Risks and expected side effects as well as potential benefit of the procedure were reviewed and voiced concerns addressed. The printed consent form was signed and witnessed. Standard time-out procedure was performed. Patient was placed in the prone position on the fluoroscopy table and automated blood pressure cuff and pulse oximeter applied. The skin entry point for approaching the left SI joint was identified under the most advantageous fluoroscopic view and marked. Following thorough Chlorhexadine preparation of the skin and draping and 1% lidocaine infiltration of the skin entry point and subcutaneous tissues, a 22 gauge spinal needle was placed under fluoroscopic guidance into the left SI joint was identified under the most advantageous fluoroscopic view and marked. Intra-articular placement was confirmed by a clear arthrogram resulting from the injection of 0.25ml Omnipaque 240, 1ml 1% lidocaine, and 40mg Depomedrol were injected intra-articularily with an initial reproduction of a significant component of the usual pain. Vital signs were stable throughout the procedure and were as recorded in the docflowsheet by the nursing staff. If given, dosages of intravenous drugs for anxiolysis and analgesia were documented in MAR. Follow up plans and appointments were discussed with the patient. Post procedure instruction was given as documented in nursing documentation and having met discharge criteria, and was discharged from the Pain Management Center. COMMENTS: Post-procedure pain VAS was 0/10. Jian Mckenna DO, MPH [facility]-Pain Management [facility]-Center for Pain Management CC: Haroon Trammell NP
== END 2022-05-12 08:37 | disposition home or self-care (01) ==
LOC: PC 08:36
PROVIDERS: PCP Nurse Practitioner Family; Visit Provider Preventive Medicine Occupational Medicine
DX: M53.3 Sacrococcygeal disorders, not elsewhere classified (principal); M54.50 Low back pain, unspecified
CPT/HCPCS: 27096; 72200; J1040; Q9967

== ENCOUNTER 2022-06-02 03:28 | Outpatient (CLI) | payer MEDICARE, SELFPAY ==
[2022-06-02 15:45] LABS: INR 2.6 (0.9-1.1); Prothrombin Time 24.6 sec (9.3-11.0)
== END 2022-06-02 03:29 | disposition home or self-care (01) ==
LOC: LBO 03:28
PROVIDERS: PCP Nurse Practitioner Family; Visit Provider Nurse Practitioner Family
DX: I48.91 Unspecified atrial fibrillation (principal)
CPT/HCPCS: 36415; 85610

== ENCOUNTER 2022-07-02 02:40 | Outpatient (CLI) | payer MEDICARE, SELFPAY ==
[2022-07-02 14:14] LABS: INR 2.9 (0.9-1.1); Prothrombin Time 27.7 sec (9.3-11.0)
== END 2022-07-02 02:41 | disposition home or self-care (01) ==
LOC: LBO 02:40
PROVIDERS: PCP Nurse Practitioner Family; Visit Provider Nurse Practitioner Family
DX: I48.91 Unspecified atrial fibrillation (principal); Z79.01 Long term (current) use of anticoagulants
CPT/HCPCS: 36415; 85610

== ENCOUNTER 2022-08-05 02:23 | Outpatient (CLI) | payer MEDICARE, SELFPAY ==
[2022-08-05 15:42] LABS: INR 2.9 (0.9-1.1); Prothrombin Time 27.5 sec (9.3-11.0)
== END 2022-08-05 02:24 | disposition home or self-care (01) ==
LOC: LBO 02:23
PROVIDERS: PCP Nurse Practitioner Family; Visit Provider Nurse Practitioner Family
DX: I48.91 Unspecified atrial fibrillation (principal)
CPT/HCPCS: 36415; 85610

== ENCOUNTER 2022-09-02 04:22 | Outpatient (CLI) | payer MEDICARE, SELFPAY ==
[2022-09-02 13:34] LABS: Prothrombin Time 28.5 sec (9.3-11.0)
== END 2022-09-02 04:23 | disposition home or self-care (01) ==
LOC: LBO 04:22
PROVIDERS: PCP Nurse Practitioner Family; Visit Provider Nurse Practitioner Family
DX: I48.91 Unspecified atrial fibrillation (principal)
CPT/HCPCS: 36415; 85610

== ENCOUNTER 2022-10-13 13:40 | Outpatient (CLI) | payer MEDICARE, SELFPAY ==
[2022-10-13 14:08] VITALS: BP 107/75; PULSE 68; RESP 20; TEMP 36.6; O2SAT 97
--- NOTE | 2022-10-13 15:07 | DI.RAD_ITS ---
Exam(s) XR PAIN CLINIC SACRIOILIAC 2V EXAM: XR PAIN CLINIC SACRIOILIAC 2V CLINICAL HISTORY: Dx: Sacroiliac Joint Dysfunction TECHNIQUE: 2D and realtime digital imaging was performed. CONTRAST MATERIAL: Refer to procedure report. COMPARISON: No exams were available for comparison FINDINGS: Fluoroscopy was provided for Dr. Mckenna during the performance of a sacroiliac joint injection. Tram ngo refer to the procedure report for complete details. Ka,r=7.97 mGy IMPRESSION:
[2022-10-13] MEDS: methylPREDNISolone ACETATE 80 MG/ML VIAL IJ (15:09)
[2022-10-13 15:10] VITALS: BP 110/62; PULSE 67; RESP 19; O2SAT 100
[2022-10-13] MEDS: Omnipaque 240 MG/ML 50 ML BTL IJ (15:10)
--- NOTE | 2022-10-13 16:05 | PDOC.PAIN ---
Date of service: 10/13/22 Time of Service: 16:08 Pain Clinic Procedure Note Procedure Note Procedure Note: INTRA-ARTICULAR SI JOINT INJECTION Les Carlson has been referred to the Pain Management Center for intra-articular SI joint injection. COMMENTS: He has this procedure completed on 05/12/22 and had 3+ months of 80-90% improvement. Dx: Left Sacroiliac joint dysfunction Pre-procedure pain VAS was 4/10. Patient was interviewed and the medical record reviewed. There were no medical, pharmacologic, radiographic or other structural contraindications to attempting fluoroscopically guided intra-articular SI joint injection. Risks and expected side effects as well as potential benefit of the procedure were reviewed and voiced concerns addressed. The printed consent form was signed and witnessed. Standard time-out procedure was performed. Patient was placed in the prone position on the fluoroscopy table and automated blood pressure cuff and pulse oximeter applied. The skin entry point for approaching the left SI joint was identified under the most advantageous fluoroscopic view and marked. Following thorough Chlorhexadine preparation of the skin and draping and 1% lidocaine infiltration of the skin entry point and subcutaneous tissues, a 22 gauge 3.5 spinal needle was placed under fluoroscopic guidance into the left SI joint was identified under the most advantageous fluoroscopic view and marked. Intra-articular placement was confirmed by a clear arthrogram resulting from the injection of 0.25ml Omnipaque 240, 1ml 1% lidocaine, and 40mg Depomedrol were injected intra-articularily with an initial reproduction of a significant component of the usual pain. Vital signs were stable throughout the procedure and were as recorded in the docflowsheet by the nursing staff. If given, dosages of intravenous drugs for anxiolysis and analgesia were documented in MAR. Follow up plans and appointments were discussed with the patient. Post procedure instruction was given as documented in nursing documentation and having met discharge criteria, and was discharged from the Pain Management Center. COMMENTS: Post-procedure pain VAS was 0/10. Jian Mckenna DO, MPH [facility]-Pain Management [facility]-Center for Pain Management CC: Haroon Trammell NP
== END 2022-10-13 13:41 | disposition home or self-care (01) ==
PROVIDERS: PCP Nurse Practitioner Family; Visit Provider Preventive Medicine Occupational Medicine
DX: M53.3 Sacrococcygeal disorders, not elsewhere classified (principal); M54.50 Low back pain, unspecified
CPT/HCPCS: 27096; 72200; J1040; Q9967

== ENCOUNTER → 2022-12-01 13:55 | Outpatient (BNVA) | payer MEDICARE, SELFPAY | PROVIDERS: PCP Nurse Practitioner Family; Referring Provider Nurse Practitioner Family; Visit Provider Nurse Practitioner Gerontology | DX: N40.1 Benign prostatic hyperplasia with lower urinary tract symptoms (principal); R39.89 Other symptoms and signs involving the genitourinary system | CPT/HCPCS: 36415; 51798; 81003; 99214 ==

== ENCOUNTER 2022-12-01 14:56 | Outpatient (REF) | payer MEDICARE, SELFPAY ==
[2022-12-02 21:26] LABS: PSA, Diagnostic 2.5 ng/mL (<=6.5)
== END 2022-12-01 14:57 | disposition home or self-care (01) ==
LOC: NCHCN 14:56
PROVIDERS: PCP Nurse Practitioner Family; Visit Provider Nurse Practitioner Gerontology
DX: N40.1 Benign prostatic hyperplasia with lower urinary tract symptoms (principal)
CPT/HCPCS: 84153

== ENCOUNTER 2023-03-10 12:51 | Outpatient (CLI) | payer MEDICARE, SELFPAY ==
[2023-03-10 16:48] LABS: ALT 20 U/L (16-63); AST 18 U/L (15-37); Albumin 3.8 g/dL (3.4-5.0); Alkaline Phosphatase 96 U/L (46-116); Anion Gap 7.6 mmol/L (3-11); BUN 18 mg/dL (7-18); Bilirubin, Total 1.3 mg/dL (0.2-1.0); CO2 28.4 mmol/L (21.0-32.0); CREATININE 1.2 mg/dL (0.70-1.30); Calcium 9.1 mg/dL (8.5-10.1); Calculated LDL 42 mg/dL (<100); Chloride 103 mmol/L (98-107); Cholesterol 94 mg/dL (<200); Glucose 93 mg/dL (74-106); HDL Cholesterol 45 mg/dL (40-60); Potassium 4.2 mmol/L (3.5-5.1); Sodium 139 mmol/L (136-145); Total Protein 7.2 g/dL (6.4-8.2); Triglyceride 38 mg/dL (<150)
== END 2023-03-10 12:52 | disposition home or self-care (01) ==
LOC: LBO 12:52
PROVIDERS: PCP Nurse Practitioner Family; Visit Provider Nurse Practitioner Family
DX: E78.1 Pure hyperglyceridemia (principal); E03.9 Hypothyroidism, unspecified
CPT/HCPCS: 36415; 80053; 80061

== ENCOUNTER 2023-06-29 14:26 | Outpatient (CLI) | payer MEDICARE, SELFPAY ==
[2023-06-29 14:37] VITALS: BP 129/76; PULSE 56; RESP 20; TEMP 36.7; O2SAT 98
--- NOTE | 2023-06-29 14:45 | DI.RAD_ITS ---
Exam(s) XR PAIN CLINIC SACRIOILIAC 2V EXAM: XR PAIN CLINIC SACRIOILIAC 2V CLINICAL HISTORY: Dx: Sacroiliac Joint Dysfunction TECHNIQUE: 2D and realtime digital imaging was performed. CONTRAST MATERIAL: Refer to procedure report. COMPARISON: No exams were available for comparison FINDINGS: Fluoroscopy was provided for Dr. Mckenna during the performance of a left sacroiliac joint injection. Please refer to the procedure report for complete details. Ka,r=6.4 mGy IMPRESSION:
[2023-06-29 15:28] VITALS: BP 126/62; PULSE 71; RESP 21; O2SAT 98
--- NOTE | 2023-06-29 15:28 | PDOC.PAIN_ITS ---
Date of service: 06/29/23 Time of Service: 15:28 Pain Managment Procedure Note Procedure Note Procedure Note: PROCEDURE NOTE LEFT INTRA-ARTICULAR SACROILIAC JOINT INJECTION Date of Service: June 29, 2023 Patient: Les Carlson Provider: Jian Mckenna DO, MPH COMMENTS: I previously evaluated the patient in the office and their symptoms in relation to the sacroiliac joint pain have remained the same. He last had this procedure on 10/13/22 and had >50% pain relief for >6 months. Pre-operative diagnosis: Sacroiliac joint dysfunction Post-operative diagnosis: Same Pre-procedure pain: VAS= 4/10 Les Carlson has been referred to our [facility] for a Left intra-articular Sacroiliac joint injection. Les was interviewed and the medical record reviewed. There were no medical, pharmacologic, radiographic or other structural contraindications to attempting a fluoroscopically-guided, contrast-enhanced, intra-articular Sacroiliac joint injection. The risks, benefits, and potential side effects of this procedure were reviewed with the patient. Questions and concerns were addressed. After it was clear that Les was fully informed about the procedure, the printed consent form was signed by the patient and myself. Les was placed in the prone position on the fluoroscopy table and an automated blood pressure cuff, 3 lead EKG, and pulse oximeter were applied. The skin entry point for approaching the Left sacroiliac joint was identified under the most advantageous fluoroscopic view and marked. Following thorough Chlorhexadine preparation of the skin and draping with sterile surgical drapes, 2 mls of 1% lidocaine was infiltrated into the skin at the entry point and the surrounding subcutaneous tissues. Next, a 3.5 22G spinal needle was placed under fluoroscopic guidance into the Left sacroiliac joint. Intra-articular placement was confirmed by a clear arthrogram resulting from the injection of 0.25ml of Omnipaque-240. Next, 1 ml of Depo- Medrol 80 mg/ml was injected intra- articularly with an initial reproduction of a significant component of the usual pain. This was followed with 1 ml of 1% Lidocaine. The needle was then removed without difficulty. (49 ml of Omnipaque-240 was wasted). Les's vital signs were stable throughout the procedure and were as recorded in nursing records. Follow up plans and appointments were discussed with Les. Post procedure instructions were given as documented in nursing records. Having met discharge criteria, Les was discharged from the Center for Pain Management. COMMENTS: Post-procedure pain: VAS= 1/10. If the patient receives at least 50% improvement in pain and/or function for at least 3 months, this procedure can be repeated if needed. I personally performed this entire procedure. JIAN MCKENNA DO, MPH [facility]-subspecialty board certification in Pain Medicine [facility]-Center for Pain Management
[2023-06-29] MEDS: Omnipaque 240 MG/ML 50 ML BTL IJ (15:30)
[2023-06-29] MEDS: methylPREDNISolone ACETATE 80 MG/ML VIAL IJ (15:59)
== END 2023-06-29 14:27 | disposition home or self-care (01) ==
LOC: PC 14:27
PROVIDERS: PCP Nurse Practitioner Family; Visit Provider Preventive Medicine Occupational Medicine
DX: M54.50 Low back pain, unspecified (principal); M46.1 Sacroiliitis, not elsewhere classified
CPT/HCPCS: 00123; 27096; 72200; J1040; Q9967

== ENCOUNTER 2023-09-21 14:50 | Outpatient (REF) | payer MEDICARE, SELFPAY ==
[2023-09-21 21:39] LABS: TSH (W/Ref FT4) 4.81 uIU/mL (0.36-3.74); Vitamin B12 306 pg/mL (193-986)
[2023-09-21 21:57] LABS: FREE T4 0.85 ng/dL (0.76-1.46)
== END 2023-09-21 14:51 | disposition home or self-care (01) ==
LOC: LBN 14:50
PROVIDERS: PCP Nurse Practitioner Family; Visit Provider Nurse Practitioner Family
DX: R41.9 Unspecified symptoms and signs involving cognitive functions and awareness (principal)
CPT/HCPCS: 82607; 84439; 84443

== ENCOUNTER → 2023-10-03 01:38 | Outpatient (CLI) | payer MEDICARE, SELFPAY ==
--- NOTE | 2023-10-03 08:30 | DI.MRI_ITS ---
Exam(s) MR BRAIN WO EXAM: MR BRAIN WO CLINICAL HISTORY: memory changes, COGNITIVE CHANGE, R41.89 TECHNIQUE: Multiplanar multisequence MRI of the brain was performed. COMPARISON: CT CT BRAIN NECK CTA from 07/16/2020 FINDINGS: VENTRICLES AND EXTRA AXIAL SPACES: Normal in size and morphology for the patient's age. MIDLINE SHIFT: None. CEREBRAL PARENCHYMA: No focus of restricted diffusion to suggest acute infarct. No space-occupying le bipin identified. Mild atrophy consistent with the patient's age. Mild scattered foci of high signal in the white matter consistent with sequela of chronic microvascular disease. HEMORRHAGE: None. BRAINSTEM/CEREBELLUM: Normal. VISUALIZED PARANASAL SINUSES/MASTOIDS:Clear. Vasculature: Normal flow void. PITUITARY GLAND: Unremarkable. ORBITS: Unremarkable. IMPRESSION: No acute abnormality. DATA REPOSITORY:
== END ==
PROVIDERS: PCP Nurse Practitioner Family; Visit Provider Nurse Practitioner Family
DX: R41.89 Other symptoms and signs involving cognitive functions and awareness (principal)
CPT/HCPCS: 70551

== ENCOUNTER 2023-10-12 17:38 | Outpatient (REF) | payer MEDICARE, SELFPAY ==
[2023-10-14 11:25] LABS: Lyme Ab w Rflx to Lyme Confirm Negative (Negative)
== END 2023-10-12 17:39 | disposition home or self-care (01) ==
LOC: LBN 17:38
PROVIDERS: PCP Nurse Practitioner Family; Visit Provider Nurse Practitioner Family
DX: M25.561 Pain in right knee (principal); R00.1 Bradycardia, unspecified; R61 Generalized hyperhidrosis; S20.469D Insect bite (nonvenomous) of unspecified back wall of thorax, subsequent encounter
CPT/HCPCS: 87798; 86618

== ENCOUNTER → 2023-10-31 13:38 | Outpatient (BNVA) | payer MEDICARE, SELFPAY | PROVIDERS: PCP Nurse Practitioner Family; Referring Provider Nurse Practitioner Family; Visit Provider Student in an Organized Health Care Education/Training Program | DX: M17.11 Unilateral primary osteoarthritis, right knee (principal) | CPT/HCPCS: 99213 ==

== ENCOUNTER 2023-12-29 04:10 | Outpatient (CLI) | payer MEDICARE, SELFPAY ==
[2023-12-29 15:12] LABS: HCT 44.4 % (40.0-50.0); HGB 14.7 g/dL (13.5-17.5); MCH 30.8 pg (27.0-33.0); MCHC 33.1 % (32.0-36.0); MCV 93 fL (80-95); MPV 9.5 fL (8.0-11.0); Platelet Count 198 10^3/uL (130-400); RBC 4.77 10^6/uL (4.36-5.78); RDW 12.8 % (11.8-14.1); RDW-SD 43.7 fL; WBC 5.12 10^3/uL (4.4-10.8)
[2023-12-29 16:02] LABS: Anion Gap 9.1 mmol/L (3-11); BUN 19 mg/dL (7-18); CO2 27.9 mmol/L (21.0-32.0); CREATININE 1.1 mg/dL (0.70-1.30); Chloride 106 mmol/L (98-107); Estimated GFR 68.29 (mL/min/1.73m2); Glucose 116 mg/dL (74-106); Potassium 4.4 mmol/L (3.5-5.1); Sodium 143 mmol/L (136-145)
== END 2023-12-29 04:11 | disposition home or self-care (01) ==
LOC: LBO 04:11
PROVIDERS: PCP Nurse Practitioner Family; Visit Provider Student in an Organized Health Care Education/Training Program
DX: M17.11 Unilateral primary osteoarthritis, right knee (principal); Z01.818 Encounter for other preprocedural examination
CPT/HCPCS: 36415; 80048; 85027; 73560; 77073

== ENCOUNTER 2023-12-29 14:38 | Outpatient (CLI) | payer MEDICARE, SELFPAY ==
--- NOTE | 2023-12-29 14:00 | DI.RAD_ITS ---
Exam(s) XR KNEE RT 1V XR STANDING ALIGNMENT EXAM: XR STANDING ALIGNMENT CLINICAL HISTORY: TKR Planning. TECHNIQUE: 2D digital imaging was performed. Standing AP views were performed from the pelvis throu gh the ankles. COMPARISON: CR XR KNEE RT 3V AP,LAT,[place]HANE from 08/07/2020 CR XR KNEE RT 1V from 12/29/2023 FINDINGS: BONES: No acute fracture is present. No bony destructive lesion is seen. Leg length discrepancy: JOINTS: Knees: There is a left total knee prosthesis. There are no abnormal surrounding bony lucenci es. There is severe narrowing of the medial femoral tibial joint space of the right knee with mild v arus angulation. A small joint effusion is seen. The ankle joints are unremarkable. Hips: Mild degenerative changes of the left hip. Right hip prosthesis. SOFT TISSUE: Heterotopic calcifications lateral to the right hip prosthesis. IMPRESSION: Severe degenerative changes of the medial femoral tibial joint space of the right knee.. No significant leg length discrepancy. DATA REPOSITORY: RADIATION DOSE DELIVERED:
== END 2023-12-29 14:39 | disposition home or self-care (01) ==
LOC: DIORS 14:38
PROVIDERS: PCP Nurse Practitioner Family; Visit Provider Physician Assistant
DX: M17.11 Unilateral primary osteoarthritis, right knee (principal); Z01.818 Encounter for other preprocedural examination
CPT/HCPCS: 73560; 77073

== ENCOUNTER 2024-01-11 16:24 | Observation (INO) | payer MEDICARE, SELFPAY ==
[2024-01-11] VITALS (57 sets, daily range): BP systolic 102–158; BP diastolic 43–99; PULSE 37–68; RESP 14–25; TEMP 36–36.5; O2SAT 92–99; BMI 28.3
--- NOTE | 2024-01-11 08:42 | ANES.PREOP_ITS ---
General Info Date of Service Date Performed: 01/11/24 Height: 5 ft 6 in Weight: 79.8 kg Body Mass Index (BMI): 28.3 Surgical Procedure: Operation Date: 01/11/24 09:55 Proposed Procedure Side Surgeon p Knee Total Arthroplasty, Cementless CR Right Oren Estrella MD Meds Allergies and Home Medications Allergies Allergy/AdvReac Type Severity Reaction Status Date / Time levothyroxine sodium Allergy Severe RASH, Verified 01/11/24 08:31 JOINT PAIN pravastatin Allergy Mild RASH Verified 01/11/24 08:31 dofetilide [From Tikosyn] AdvReac Severe rash Verified 01/11/24 08:31 esomeprazole AdvReac Severe DIARRHEA Verified 01/11/24 08:31 famotidine AdvReac Intermediate confusion Verified 01/11/24 08:31 simvastatin AdvReac Intermediate MYALGIAS Verified 01/11/24 08:31 Home Medication Medication Instructions Recorded multivitamin (Daily Vitamin tablet) 1 ea PO DAILY 10/08/12 tsvdbafkpd-ietcxorgdi-vbyvcxfn-hyalur 1 tab PO DAILY 02/15/13 ac 375 mg-300 mg-175 mg-2 mg cap acetaminophen 500 mg tablet 500 mg PO Q6H PRN 05/25/18 (Tylenol Extra Strength) nitroglycerin 0.4 mg sublingual 0.4 mg sublingual PRN #25 tabs 04/21/22 tablet (Nitrostat) apixaban 5 mg tablet (Eliquis) 5 mg PO BID 10/05/22 atorvastatin 40 mg tablet 40 mg PO DAILY #90 tab-caps 01/07/23 amoxicillin 500 mg tablet 2,000 mg (4 x 500 mg) PO ONCE #4 08/16/23 tabs tamsulosin 0.4 mg capsule (Flomax) 0.4 mg PO DAILY #90 caps 11/14/23 clobetasol 0.05 % topical cream 1 applic topical BID contact 01/02/24 dermatitis 2 weeks #45 grams Current Visit Medications: Current Medications Generic Name Dose Route Start Last Admin Trade Name Freq PRN Reason Stop Dose Admin Acetaminophen 1,000 mg 01/11/24 06:00 Acetaminophen 500 Mg Tab PO 01/11/24 23:59 PREOP JESS Celecoxib 400 mg 01/11/24 06:00 Celecoxib 200 Mg Cap PO 01/11/24 23:59 PREOP JESS Gabapentin 300 mg 01/11/24 06:00 Gabapentin 300 Mg Cap PO 01/11/24 23:59 PREOP JESS Ringer's Solution 1,000 mls @ 80 mls/hr 01/11/24 06:00 IV 01/11/24 23:59 INFUSION JESS Cefazolin Sodium/Dextrose 2 gm in 50 mls @ 100 mls/hr 01/11/24 06:00 Ancef Duplex IVPB 01/11/24 23:59 PREOP JESS Tranexamic Acid/Sodium Chloride 1,000 mg in 100 mls @ 600 mls/hr 01/11/24 06:00 IVPB 01/11/24 23:59 PREOP JESS IV Miscellaneous Supplies 1 each 01/11/24 06:00 Iv Access IV 01/11/24 23:59 DIRECTED JESS Sodium Chloride 0 ml 01/11/24 06:00 Normal Saline Flush 10 Ml Syr IV 01/11/24 23:59 PRN PRN Sodium Chloride 0 ml 01/11/24 06:00 Normal Saline 10 Ml Vial IJ 01/11/24 23:59 DIRECTED PRN Sterile Water 0 ml 01/11/24 06:00 Water,Injection,Sterile 10 Ml Vial IJ 01/11/24 23:59 DIRECTED PRN PFSH Active Problems Active Problems: Problem Status Onset Code 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 M51.36, M25.78 Pre-syncope ~01/18/23 R55 Sacroiliac joint dysfunction of left side M53.3 Left buttock pain M79.18 Pain of left hip M25.552 Bradycardia R00.1 Diverticula of colon K57.30 Gallstones K80.20 Degenerative joint disease of right knee M17.11 Confusion R41.0 Low back pain, non-specific M54.5 Chronic anticoagulation Z79.01 BPV (benign positional vertigo) H81.10 Obstructive sleep apnea syndrome 05/07/12 G47.33 Night sweats 03/15/17 R61 Memory loss 03/15/17 R41.3 Hypothyroidism 06/16/12 E03.9 Hyperlipidemia 02/12/10 E78.5 Hiatal hernia 02/17/16 K44.9 Hearing loss H91.90 Generalized osteoarthrosis 03/28/13 M15.9 Benign prostatic hyperplasia with lower urinary tract symptoms 08/28/15 N40.1 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 Atrial fibrillation 02/11/12 I48.91 ASCVD (arteriosclerotic cardiovascular disease) 02/12/10 I25.10 GERD (gastroesophageal reflux disease) K21.9 Medical History Medical History Conjunctivitis Abdominal pain Family history of pancreatic cancer Epigastric abdominal pain Muscle strain of right gluteal region Polyp of colon Gastritis Esophagitis 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 had worked up determined dehydration and heat exhaustion Surgical History Surgical History Hx of total knee replacement L History of arthroscopy of knee Status post hip replacement Status post inguinal hernia repair Status post rotator cuff repair H/O colonoscopy (~11/25/20) History of esophagogastroduodenoscopy (EGD) (~11/25/20) Total replacement of hip (~06/2010) RIGHT Stent placement 2009;LAD Rotator Cuff Repair RIGHT Repair of inguinal hernia (~1984) RIGHT Hemorrhoidal Banding (~2005) CARDIAC CATH LEFT HEART 2009 Arthroplasty of knee right; repair of torn meniscus Tobacco Smoking/Tobacco Use Status: Former Tobacco Use Passive smoking exposure: Yes Second hand exposure: Yes Alcohol Alcohol Intake: never Substance Use Substance use: Never Substance use type: does not use Vital Signs and Lab Results Vital Signs Most Recent Vital Signs in EMR: Most Recent Vital Signs Temp Pulse Resp BP Pulse Ox 36.2 C L 59 L 16 134/57 L 99 01/11/24 07:55 01/11/24 07:55 01/11/24 07:55 01/11/24 07:55 01/11/24 07:55 Lab Results Blood Type / Crossmatch: No Data to Display Complete Blood Count: White Blood Count 5.12 10^3/uL (4.4-10.8) 12/29/23 15:07 Red Blood Count 4.77 10^6/uL (4.36-5.78) 12/29/23 15:07 Hemoglobin 14.7 g/dL (13.5-17.5) 12/29/23 15:07 Hematocrit 44.4 % (40.0-50.0) 12/29/23 15:07 Platelet Count 198 10^3/uL (130-400) 12/29/23 15:07 Complete Metabolic Panel: Sodium 143 mmol/L (136-145) 12/29/23 15:07 Potassium 4.4 mmol/L (3.5-5.1) 12/29/23 15:07 Chloride 106 mmol/L (98-107) 12/29/23 15:07 Carbon Dioxide 27.9 mmol/L (21.0-32.0) 12/29/23 15:07 BUN 19 mg/dL (7-18) H 12/29/23 15:07 Creatinine 1.1 mg/dL (0.70-1.30) 12/29/23 15:07 Est GFR (CKD-EPI 2020) 68.29 (mL/min/1.73m2) 12/29/23 15:07 Calcium 9.0 mg/dL (8.5-10.1) 12/29/23 15:07 Glucose 116 mg/dL (74-106) H 12/29/23 15:07 Liver Function Panel: No Data to Display Coagulation Panel: No Data to Display Cardiac Panel: No Data to Display Arterial Blood Gas: No Data to Display Venous Blood Gas: No Data to Display Pancreas Panel: No Data to Display Thyroid Panel: No Data to Display Infectious Disease: No Data to Display Blood Cultures: No Data to Display Toxicology Panel: No Data to Display Imaging and Studies Imaging and Studies Study information below may be from another EMR and interpreted by another provider. Please see original notes in EMR for more complete details. EKG Summary: 11/25/20 Conclusion Atrial fibrillation...V-rate 52- 57, irreg A-activity Ventricular premature complex...V complex w/ short R-R interval Anteroseptal infarct, age indeterminate...Q >35mS, T neg, V1-V2 Stress Test Summary: Impressions: Normal perfusion by [id number] Sestamibi Imaging. Summary: 1. Myocardial perfusion imaging: No myocardial perfusion defects noted. 2. The calculated left ventricular ejection fraction after stress: 57%. No left ventricular regional motion abnormality. 8/27/18 Anesthesia Assessment and Plan Anesthesia History Personal History: No History of Anesthesia Complications Family History: No Family History of Anesthesia Complications Exercise Tolerance Exercise Tolerance: Metabolic Equivalents>4 (MPS reports METS of 1. Appears in good health denies CP, reports active and logging at home.) Pertinent Negatives Pertinent Negatives: No Symptoms of GERD, No Major Cardiovascular Symptoms or Co mplaints and No Major Pulmonary Symptoms or Complaints Cardiac & Pulmonary Exam Cardiac Exam: Normal S1/S2 Heart Sounds (a fib) Pulmonary Exam: Clear Bilateral Breath Sounds Implantable Cardiac Device Does patient have a Pacemaker or an ICD?: No Airway Exam Known Difficult Airway: No Mallampati Class: 2 Mouth Opening: Normal (> 3cm) Thyromental Distance: Greater than 3 cm Neck Range of Motion: Full ROM Neck Circumference: Normal Teeth Condition: Normal Dentition ASA Classification ASA Score: ASA 3 Emergency Case?: No NPO Status NPO Status: NPO Clears >2 hours, Solids >8 hours Anesthesia Plan Resuscitation Status: Full Code Anesthesia Technique: Spinal Anesthesia Airway Planned: Natural Airway Pain Management: Surgeon and patient request nerve block Monitors Used: Standard Monitors
[2024-01-11] MEDS: Gabapentin 300 MG CAP PO (08:46)
[2024-01-11] MEDS: Acetaminophen 500 MG TAB 1000 MG PO (08:46)
[2024-01-11] MEDS: Celecoxib 200 MG CAP 400 MG PO (08:46)
[2024-01-11] MEDS: Lactated Ringers 1,000 ML 80 ML IV ×2 (09:03→19:15)
--- NOTE | 2024-01-11 09:45 | PDOC.DSDIS_ITS ---
Date of service: 01/11/24 Time of Service: 09:45 Discharge Plan Disposition Patient Disposition: Home Condition: Good Discharge Details Reason For Visit: R TKR Attending Provider: Oren Estrella Primary Care Provider: Brian Fu Home Meds and New Rx's Prescriptions: New celecoxib 200 mg capsule 200 mg PO BID Qty: 60 0RF acetaminophen 500 mg tablet 1,000 mg PO TID Qty: 90 3RF dexamethasone 4 mg tablet 4 mg PO DAILY Qty: 2 0RF gabapentin 300 mg capsule 300 mg PO QHS Qty: 14 0RF oxycodone 5 mg tablet 5 mg PO Q4H MDD 6 tabs PRN (Reason: pain) Qty: 20 0RF Continued nitroglycerin [Nitrostat] 0.4 mg tablet, sublingual 0.4 mg Sublingual PRN Qty: 25 4RF Rx Instructions: as directed for chest pain amoxicillin 500 mg tablet 2,000 mg PO ONCE Qty: 4 0RF Rx Instructions: Take 4 tablets or 2 grams 2 hours prior to appointment. clobetasol 0.05 % cream 1 applic topical BID 14 Days Qty: 45 1RF Eliquis 5 mg tablet 5 mg PO BID Hold Instructions: Changed by Provider multivitamin [Daily Vitamin] 1 EACH tablet 1 ea PO DAILY glucosam-chond yc-vwfagq-od ac 1 EACH capsule 1 tab PO DAILY atorvastatin 40 mg tablet 40 mg PO DAILY Qty: 90 3RF tamsulosin [Flomax] 0.4 mg capsule 0.4 mg PO DAILY Qty: 90 2RF Discontinued acetaminophen [Tylenol Extra Strength] 500 mg Tablet 500 mg PO Q6H PRN Discharge Instructions Additional Instructions: Total Knee Discharge Instructions Activity: The most important activity is to walk and to work on gentle motion (both flexion and extension). You should try to take short walks a few times a day. It is important that when resting you work on keeping the knee straight. Avoid putting a pillow behind the knee as this will encourage flexion. Work on range of motion exercises as provided by Physical Therapy. - Start outpatient physical therapy within 2 weeks. - You should wear the KATHY hose on both legs for 2 weeks. You may remove these at night. You may also use any compression sock in place of the KATHY hose. - Utilize [employer] to review exercises, see videos on exercises and obtain basic information pertaining to your surgery and your recovery. Dressing: Remove the Kal wrap by 2 days after your surgery and put on the KATHY stocking given to you from the hospital. Keep the surgical dressing (underneath the KAL wrap) in place for at least one week. After the first week it may be removed and replaced with light gauze and tape or nothing. The wound and dressing may get wet after 3 days but avoid soaking the dressing or otherwise it will need to be changed. Many people prefer covering the dressing with cling wrap (saran wrap) to minimize it from getting soaked. If it gets wet, just pat dry. If it starts to peel off then it will need to be changed. Medications: - You should take Tylenol and anti-inflammatory Celebrex as your primary pain co ntrol medications. If the Celebrex is too expensive or not covered, please call the office for another alternative (Advil/Ibuprofen or Naproxen/Aleve) - You have been prescribed a stronger pain medication Oxycodone for breakthrough pain, take as needed as prescribed. - You have been prescribed Gabapentin to take at night for restlessness and nerve pain. - You will be taking your apixaban for DVT prevention unless instructed otherwise. - You have also been prescribed Decadron to take to control post-operative nausea and pain. You will start this tomorrow. - If you have constipation you should take Colace or Miralax (both [id number]). It takes most people 3-4 days to have a bowel movement. Follow-up: 2 weeks If you have any acute concerns or questions, please do not hesitate to contact the office at [phone]. You may contact Dr. Estrella with any questions after hours through the hospital at [phone] or on his cell phone at [phone]. Equipment/Supplies: Walker Activity:: Activity as Tolerated Shower/Bathe:: 72 hours Diet:: As Tolerated Discharge Orders Discharge Orders: Discharge Order (Routine); Ordered 01/11/24 Ordered By: Toi Bethea DS: Diagnosis Discharge Diagnosis (1) Degenerative joint disease of right knee: Status: Chronic
--- NOTE | 2024-01-11 09:51 | PDOC.DSDIS_ITS ---
Date of service: 01/11/24 Time of Service: 09:51 Discharge Plan Disposition Patient Disposition: Home Condition: Good Discharge Details Reason For Visit: R TKR Attending Provider: Oren Estrella Primary Care Provider: Brian Fu Home Meds and New Rx's Prescriptions: New celecoxib 200 mg capsule 200 mg PO BID Qty: 60 0RF acetaminophen 500 mg tablet 1,000 mg PO TID Qty: 90 3RF dexamethasone 4 mg tablet 4 mg PO DAILY Qty: 2 0RF gabapentin 300 mg capsule 300 mg PO QHS Qty: 14 0RF oxycodone 5 mg tablet 5 mg PO Q4H MDD 6 tabs PRN (Reason: pain) Qty: 20 0RF Continued nitroglycerin [Nitrostat] 0.4 mg tablet, sublingual 0.4 mg Sublingual PRN Qty: 25 4RF Rx Instructions: as directed for chest pain amoxicillin 500 mg tablet 2,000 mg PO ONCE Qty: 4 0RF Rx Instructions: Take 4 tablets or 2 grams 2 hours prior to appointment. clobetasol 0.05 % cream 1 applic topical BID 14 Days Qty: 45 1RF Eliquis 5 mg tablet 5 mg PO BID Hold Instructions: Changed by Provider multivitamin [Daily Vitamin] 1 EACH tablet 1 ea PO DAILY glucosam-chond dy-unbbou-pz ac 1 EACH capsule 1 tab PO DAILY atorvastatin 40 mg tablet 40 mg PO DAILY Qty: 90 3RF tamsulosin [Flomax] 0.4 mg capsule 0.4 mg PO DAILY Qty: 90 2RF Discontinued acetaminophen [Tylenol Extra Strength] 500 mg Tablet 500 mg PO Q6H PRN Discharge Instructions Additional Instructions: Total Knee Discharge Instructions Activity: The most important activity is to walk and to work on gentle motion (both flexion and extension). You should try to take short walks a few times a day. It is important that when resting you work on keeping the knee straight. Avoid putting a pillow behind the knee as this will encourage flexion. Work on range of motion exercises as provided by Physical Therapy. - Start outpatient physical therapy within 2 weeks. - You should wear the KATHY hose on both legs for 2 weeks. You may remove these at night. You may also use any compression sock in place of the KATHY hose. - Utilize [employer] to review exercises, see videos on exercises and obtain basic information pertaining to your surgery and your recovery. Dressing: Remove the Kal wrap by 2 days after your surgery and put on the KATHY stocking given to you from the hospital. Keep the surgical dressing (underneath the KAL wrap) in place for at least one week. After the first week it may be removed and replaced with light gauze and tape or nothing. The wound and dressing may get wet after 3 days but avoid soaking the dressing or otherwise it will need to be changed. Many people prefer covering the dressing with cling wrap (saran wrap) to minimize it from getting soaked. If it gets wet, just pat dry. If it starts to peel off then it will need to be changed. Medications: - You should take Tylenol and anti-inflammatory Celebrex as your primary pain co ntrol medications. If the Celebrex is too expensive or not covered, please call the office for another alternative (Advil/Ibuprofen or Naproxen/Aleve) - You have been prescribed a stronger pain medication Oxycodone for breakthrough pain, take as needed as prescribed. - You have been prescribed Gabapentin to take at night for restlessness and nerve pain. - You will be taking your apixaban for DVT prevention unless instructed otherwise. - You have also been prescribed Decadron to take to control post-operative nausea and pain. You will start this tomorrow. - If you have constipation you should take Colace or Miralax (both [id number]). It takes most people 3-4 days to have a bowel movement. Follow-up: 2 weeks If you have any acute concerns or questions, please do not hesitate to contact the office at [phone]. You may contact Dr. Estrella with any questions after hours through the hospital at [phone] or on his cell phone at [phone]. Equipment/Supplies: Walker Activity:: Activity as Tolerated Shower/Bathe:: 72 hours Diet:: As Tolerated Discharge Orders Discharge Orders: Discharge Order (Routine); Ordered 01/11/24 Ordered By: Toi Bethea DS: Diagnosis Discharge Diagnosis (1) Degenerative joint disease of right knee: Status: Chronic
[2024-01-11] MEDS: ceFAZolin 2 GM/50 ML BAG IVPB (10:18)
[2024-01-11] MEDS: TRANEXAMIC ACID/SOD. CHL. 1,000 MG/100 ML BAG 600 MG IVPB (10:39)
--- NOTE | 2024-01-11 11:26 | W.ANESNERVE ---
Nerve Block Single Injection Procedure Date and Time Date Performed: 01/11/24 Procedure Start: 09:16 Location Where Procedure Performed Procedure Location: Day Surgery Unit Reason Performed: Postoperative Analgesia Requesting Provider: Oren Estrella Timeout Performed Timeout Performed: Yes Monitoring Used ECG, Blood Pressure, SpO2 and See EMR for corresponding vital signs Sterility Sterility: Hand Hygiene, Surgical Cap, Surgical Mask, Sterile Gloves, Sterile Drape/Sheet and Chlorhexidine Sedation Given During Procedure Sedation Given (Indicate Dose Given): No Sedation given Patient Mental Status Patient Mental Status: Awake Nerve Block 1st Nerve Block: Laterality: Right Block Type: Adductor Canal Ultrasound Image Saved?: Yes Needle / Catheter Used: 100mm SonoPlex II Local Anesthetic Bolus (Indicate Dose Given): Lidocaine used for local infiltration of skin, Injected in 3-5ml increments after negative blood aspiration and Bupivacaine 0.25% Dose:: 15 ml Additives (Indicate Dose Given): None Ultrasound: Sterile probe cover and gel used Nerve Stimulator: Supplement to Ultrasound use and No twitch or parasthesia noted < 0.5 mA Paresthesia: None Procedure Tolerated: No Complications and Patient tolerated well Procedure Outcome: Successful Performed By: Ofe Chiu
--- NOTE | 2024-01-11 12:27 | ROE_ITS ---
Date of service: 01/11/24 Time of Service: 10:40 Operative Note Operative Note DATE OF PROCEDURE: 01/11/24 PRE-OP DIAGNOSIS: Right Knee Osteoarthritis POST-OP DIAGNOSIS: same PROCEDURE: Right Total Knee Replacement with Intraoperative Navigation SURGEON: Oren Estrella STRAIGHTENING ROLL OPERATOR: Maty Bethea ANESTHESIA TYPE: Spinal Refer to Anesthesia Record ESTIMATED BLOOD LOSS: 350 PATHOLOGY: none sent TOURNIQUET TIME: 0 COMPLICATIONS: None Patient was transported to: PACU Patient's condition: stable Implants: 1. Depuy Attune Cementless Cruciate Retaining Femoral Component, Size 8 2. Depuy Attune Cementless Fixed Bearing Tibial Component, Size 6 3. Depuy Attune 8x5 CR/FB Poly 4. Depuy Attune Patellar Component, Size 38 Indications: I have seen Les in clinic for symptoms of RIGHT knee arthritis, confirmed with radiographic findings. He has exhausted nonoperative methods and was having significant limitations in daily function and desired better function and less pain. I discussed the technical details of a knee replacement. I explained the risks of the procedure to include, but not limited to, bleeding, infection, pain, stiffness, fracture, damage to nerves and vessels, damage to muscles and tendons, loosening, need for repeat procedure, blood clot and cardiopulmonary demise. Despite these risks, Les elected to proceed. Findings: There was significant signs of arthritis throughout the knee, mostly of the trochlea and medial compartment. Procedure Description: Les was greeted in the preoperative holding area where the correct side was i dentified and marked. The consent was reviewed with the patient and signed. The history and physical was updated. All questions were answered. Preoperative mediacations were administered: Acetaminophen 1000mg, Celebrex 400mg, and Gabapentin 300mg. An adductor canal block was then administered by the anesthesia team in the PACU. Les was taken back to the operating room. A spinal anesthestic was then attempted but unsuccessful, with significant history of spinal stenosis, and converted to general anesthesia. The patient was placed into the supine position on the operating room table. A nonsterile tourniquet was placed high onto the leg. Posts were placed for positioning during the procedure. All bony prominences were well padded. Prophylactic antibiotics in the form of Cefazolin were administered. 1g of Tranxemic Acid was given intravenously within 30 minutes of incision. The right leg was then prepped with Chloraprep and draped in a standard fashion with impervious stockinette. A second prep with Chloraprep was performed prior to application of Iodine impregnated skin protection. A timeout to confirm correct identity, side and site, procedure, allergies, anesthesia, and medical concerns was performed. With the knee in some flexion, a midline incision was made overlying the knee. Full thickness skin flaps were raised once the extensor mechanism was encountered. These were raised medially and laterally. Any bleeding was controlled with electrocautery. Once the extensor mechanism was fully exposed, a medial parapatellar arthrotomy was performed in a flexed position. All bleeding from the arthrotomy and the geniculate arteries was coagulated. A medial subperiosteal peel was performed with electrocautery to the midcoronal plane. Due to the significant varus deformity the entire medial tibial plateau was exposed. The fat pad was removed while keeping the patellar tendon protected. The anterior distal femur synovium was removed for later visualization. The ACL and PCL were resected and the anterior horn of the lateral meniscus was transected. The knee was then flexed with the patella everted. Large osteophytes from the tibia were removed. Large osteophytes from the femur were removed. A single starting pin was then placed 1cm anterior to the PCL insertion and the notch in the direction of the femoral head. The OrthoAlign device was applied over the pin. It was oriented to be in line with the epicondylar axis and the trochlear groove. It was then pinned into place. The navigation computer was then turned on and calibrated. The distal femur cut was set at 0.5 degrees varus and 3.5 degrees flexion. The distal femur cutting guide then was positioned for a 9mm cut. The distal femur was cut with an oscillating saw while protecting the soft tissues. The tibia was then addressed. The OrthoAlign device was placed over the tibial tubercle and medial tibia and secured into position. Once again, OrthoAlign was calibrated and then set for a 1.5 degree varus cut and 5 degrees of posterior slope. With this locked into position, the cut thickness stylus was used to assess cut thickness. The medial side, most involved side, was set for a 4mm cut. This was then held in position and pinned into place with 2 additional pins and a cross pin for stability. The medial and lateral collateral ligaments were protected and the cut was performed. With this completed, it was assessed and noted to be of appropriate dimensions. The guide and OrthoAlign was removed. A spacer block was inserted and the knee was brought into extension to ensure enough space was present. . The Orthoalign gap balancing device was then placed in extension. This was used to ensure that the ligaments were properly balanced with up to 2 to 3 mm laxity laterally compared medially. The extension gap was measured as 17mm. The knee was then brought into 90 degrees of flexion and the ligament distribution lead was once again placed. Under the same amount of force the flexion gap was measured. The Attune specific jig was placed and the flexion gap was made to match the extension gap. The femur was then sized as a size 8. The 4-in-1 cutting guide was the placed. An shannan wing was used to confirm appropriate position of the anterior cut to avoid notching. This cutting guide was ensured to be flush on the cut surface and then pinned into place with headed pins. While protecting the soft tissues, quad tendon, and collateral ligaments, the anterior and posterior cuts were performed with a saw. The central two pins were removed and the posterior and anterior chamfers were cut next. The notch-cutting guide was placed. This was pinned to lateralize the femoral component as much as possible while keeping it flush on the cut surface. This was then pinned into position. A saw was used to make the notch cut. A rasp smoothed the cut surfaces. The medial and lateral menisci were removed. A trial femoral component was then inserted, impacted down to the cut surfaces, and the lug holes were drilled. A provisional trial tibial component was placed and the knee was brought through range of motion. There was noted to be excel lent extension and flexion. There was no significant instability. The patella was tracking without thumbs. A size 5mm polyethylene component provided the best range of motion and stability with less than 2mm gapping with medial and lateral stress and full extension without significant hyperextension. The tibial cut surface was fully exposed. The tibia was then sized as a 6. The tibia had been previously marked during trialing to correspond to the center of the tibial component to help with rotation. The trial was aligned to this maty, approximately rotated to the medial 1/3rd of the tibial tubercle. The trial was pinned into place. The tibia was prepared with a reamer and a keel punch and lug holes. The knee was then brought into extension and the patella was measured as 26mm. Using the patellar clamp and cut guide, this was resected to a flat surface with at least 13mm of thickness remaining. The size 38 patella fit the best. This was oriented and then clamped into position. The lugs were drilled. The trial components were removed. The final components were opened on the back table. The periosteal and capsular tissues, especially posteriorly, around the knee were then systematically injected with a periarticular cocktail consisting of 246mg of Ropivacaine, 0.5mg of Epinephrine, 0.08mg of Clonidine, and 30mg of Ketorolac, diluted to 100cc. On the back table, with the implants opened, the cement was mixed. One batch of high viscosity cement was prepared with vacuum assistance. After the cement was ready a small amount was placed on the cut surface of the patella and the patellar button was clamped into position and held. While the cement was hardening, the cementless knee components were placed. Starting with the tibial component, the tibia was subluxed anteriorly and the lug holes of the component were lined up. The tibia was then impacted with an impactor and mallet until the tibial component was in contact with the tibia. Then, the femoral component was inserted. The lug holes were aligned and the component was impacted into position. The final polyethylene component was inserted. The knee was irrigated with Surgiphor Betadine solution. This was allowed to sit in the knee for 3 minutes and then it was thoroughly irrigated out with saline. After the cement had finally cured, approximately 15min, the clamp was removed from the patella and the knee was taken through range of motion. The patella was tracking with a no-thumbs technique. The capsule was then reapproximated with a No. 1 Vicryl at multiple locations. The capsule was finally closed with a No. 2 Stratafix, barbed suture. Deep tissues were then reapproximated with 0 Vicryl and 2-0 Vicryl. The skin was closed with a running 3-0 Monocryl in a subcuticular fashion. This was reinforced with skin glue. A Mepilex silver dressing was applied along with a [id number] JOVI wrap. A CryoCuff was applied. Les was transferred to the hospital bed without difficulty an suffering no apparent complication. Les has a good prognosis. Physical therapy will start today and without restrictions, weight-bearing as tolerated. Apixaban 5 mg twice daily, his home dose, will be used for DVT prophylaxis.
--- NOTE | 2024-01-11 14:26 | W.ANESPOSTOP ---
Postoperative Evaluation Date, Time and Location Date Performed: 01/11/24 Time Performed: 13:46 Patient Location: Day Surgery Unit Vital Signs Most Recent Imported Vital Signs: Most Recent Vital Signs Temp Pulse Resp BP Pulse Ox 36 C L 54 L 14 138/78 99 01/11/24 13:56 01/11/24 13:56 01/11/24 13:56 01/11/24 13:56 01/11/24 13:56 Pain Score Most Recent Pain Score: Most Recent Pain Score Pain Level 0 01/11/24 13:56 Assessment Mental Status: Awake (Alert & Oriented to Patient Baseline) Airway and Respiratory Function: Patent airway with normal (patient baseline) respiratory exam Cardiovascular Function: Hemodynamically Stable Hydration Status: Adequately Hydrated Nausea & Vomiting: No Nausea or Vomiting Pain: Pt. Denies Any Pain Peripheral Nerve Block: Regional nerve block not resolved at time of post operative discharge
--- NOTE | 2024-01-11 14:40 | PT.INIE ---
PT Notes Visit Reasons: R TKR Physical Therapy Day Surgery Initial Evaluation Date: 01/12/2024 Referring Doctor: JESSIE Ahmadi PT Orders: PT CONSULT: S/P Ortho Surgery Precautions: Per Dr. Estrella.WBAT on the right LE with AD. Patient Profile/Admitting Diagnosis: Marck is a 78-year-old male with primary unilateral osteoarthritis of the right knee and status post right total knee arthroplasty on postoperative day 0. 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 Internal hemorrhoids (02/17/16) [facility] [place] Generalized osteoarthrosis (03/28/13) Left TKA 10/10 Actinic keratosis SCC ears 2004, lower lip Chest pain Surgical History Hx of total knee replacement L History of arthroscopy of knee Status post hip replacement Status post inguinal hernia repair Status post rotator cuff repair H/O colonoscopy (~11/25/20) History of esophagogastroduodenoscopy (EGD) (~11/25/20) Total replacement of hip (~06/2010) RIGHT Stent placement 2009;LAD Rotator Cuff Repair RIGHT Repair of inguinal hernia (~1984) RIGHT Hemorrhoidal Banding (~2005) CARDIAC CATH LEFT HEART 2009 Arthroplasty of knee right; repair of torn meniscus Social History/Home Situation: Lives with in a private home with one half steps to enter. Independent with all aspects of ADLs prior to surgery. Equipment Owned/DME: None Subjective: Patient reports 4/10 pain in the right knee at rest and with movement. Denied headache, chest pain, and lightheadedness throughout session. Objective: General Observation: JOVI wraps to right LE. Cryocuff to right knee. Mental Status: A and O x 4 Pain: As above ROM: Right Lower Extremity: Hip flexion WFL. Hip abduction WFL. Knee flexion 30 degrees to 90 degrees ACTIVELY. Knee extension -30 degrees. Ankle dorsiflexion WFL. Ankle plantarflexion WFL. Left Lower Extremity: Hip flexion WFL. Hip abduction WFL. Knee flexion WFL. Ankle dorsiflexion WFL. Ankle plantarflexion WFL. Strength: Right Lower Extremity: Hip flexors 4/5. Hip abductors 4/5. Knee flexors 3-/5. Knee extensors 3-/5. Ankle dorsiflexors 5/5. Ankle plantarflexors 5/5. Left Lower Extremity:Hip flexors 5/5. Hip abductors 5/5. Knee flexors 5/5. Knee extensors 5/5. Ankle dorsiflexors 5/5. Ankle plantarflexors 5/5. Sensation: Intact as to pain and light pressure in bilateral lower extremities Bed Mobility/Transfers: Minimal cueing provided for use of B hands as needed for support, movement sequence, AD management, and posture to reduce fall risk and minimize pain report Supine to sit stand by assist Sit to stand contact guard assist Stand to sit stand by assist Bed to chair contact guard assist Gait: Facilitated safe and correct lateral surface ambulation covering a distance of 75 feet + 75 feet using front-wheeled walker requiring minimal verbal cueing for safe limb advancement, AD management, and posture. Needed a couple of seated rest due to report of lightheadedness and fatigue. Nurse Cami remeasured vital signs per protocol. Stairs: Guided patient with safe and correct negotiation of 3 x 4 inch steps while holding onto bilateral rails with step to gait pattern requiring only contact-guard assist and minimal verbal cueing for limb sequence and increasing flexion and the right knee during each ascent. Balance: Static Sitting: Normal Dynamic Sitting: Normal Static Standing: Fair Dynamic Standing: Fair Special Tests: Mobility Limitations Standardized Measure [facility] AM-PAC 6 clicks Basic Mobility Inpatient Short Form: Raw Score: 21 CMS Score: 29% deficit Informed Consent/Education: Patient instructed in purpose of PT consult. Packet containing R exercise protocol has been given to patient. Education and training on initial set of exercises that can be done at home have been completed with patient. Trained patient with correct performance of exercises below to maximize motor control, joint flexibility, soft tissue extensibility of the R knee musculature: Access Code: [email or web address] URL: [email or web address] Date: 01/11/2023 Prepared by: Valentina Winn Exercises - Supine Quad Set - 1 x daily - 7 x weekly - 1 sets - 10 reps - 5 hold - Supine Heel Slide - 1 x daily - 7 x weekly - 1 sets - 10 reps - 5 hold - Supine Ankle Pumps - 1 x daily - 7 x weekly - 1 sets - 10 reps - 5 hold - Small Range Straight Leg Raise - 1 x daily - 7 x weekly - 1 sets - 10 reps - 5 hold - Seated March - 1 x daily - 7 x weekly - 1 sets - 10 reps - 5 hold Assessment: Patient requires the use of a front wheeled walker for mobility ADL performance to maximize independence and reduce fall risk. Complains of dizziness and limited ability to tolerate upright positioning and required seated rest. Patient presents with clinical signs and symptoms consistent with current/admitting diagnoses that have resulted to mobility limitations, gait instability, generalized weakness, and impairment of motor control as demonstrated by the following impairment level findings: 1. Decreased strength to R knee major muscle groups 2. Impaired standing balance 3. Limitation of joint range of motion in R knee Impairments are contributing to the following functional limitations: 1. Inability to safely ambulate without assistive device 2. Increase completion time for mobility ADL performance 3. Increased fall risk Patient is assessed as a 66619 moderate complexity based on the following: History: 78-year-old male with impairment level findings, functional limitations, and past medical history as indicated above Examination: Demonstrable impairment in strength, balance, and mobility level with underlying impairments and functional limitations as documented above Presentation: Evolving Decision Makin moderate complexity Goals: N/A. PT evaluation and 1-2 treatment sessions only for functional mobility training using recommended AD and for HEP instruction. Plan of Care/Treatment Plan: N/A. PT evaluation and 1-2 treatment session only for functional mobility training using recommended AD and for HEP instruction. DISCHARGE RECOMMENDATIONS: Home when medically cleared by orthopedic surgeon. Recommend outpatient PT services in order to optimize functional mobility outcomes and facilitate return to independent community ambulation without an assistive device TREATMENT CODE/TIME: 23893 x 20 minutes for 1 unit, 61620 x 26 minutes for 2 units (14:40-15:26). Thank you for the opportunity to participate in the care of this patient. Please sign an return this page within 30 days if you agree with the above POC. Thank you! Physician Signature Date Thank you for the opportunity to participate in the care of this patient. Valentina Winn PT, DPT, CLT [facility] [place], [place]
--- NOTE | 2024-01-11 17:27 | SUR.PHASEII ---
Pt worked with Ashli PT and had increased dizziness and weakness with ambulation. Pt rested in his room afterwards for 30 minutes. Pt continued to complain of dizziness and overall feeling weak, pt stated he did not feel comfortable going home tonight. RN contacted Dr. Estrella who stated that he would put in orders for the pt to be admitted overnight. Pt was transferred to [facility] by Cami SIMMONS at 1728, handoff given to Kavita SIMMONS. All belongings sent with patient to include walker, bag of clothes/shoes, and cryocuff.
[2024-01-11] MEDS: Apixaban 5 MG TAB PO (20:25)
[2024-01-12 00:34] VITALS: BP 111/74; PULSE 66; RESP 20; TEMP 36.6; O2SAT 96
[2024-01-12 03:12] VITALS: BP 108/67; PULSE 61; RESP 17; TEMP 36.5; O2SAT 95
[2024-01-12 07:13] VITALS: BP 116/78; PULSE 64; RESP 17; TEMP 36.3; O2SAT 96
[2024-01-12] MEDS: Tamsulosin 0.4 MG CAPCR PO (08:20)
[2024-01-12] MEDS: Meloxicam 15 MG TAB PO (08:20)
[2024-01-12] MEDS: Atorvastatin 40 MG TAB PO (08:20)
[2024-01-12] MEDS: Multivitamin TAB 1 TAB PO (08:20)
[2024-01-12] MEDS: Apixaban 5 MG TAB PO (08:20)
--- NOTE | 2024-01-12 10:27 | DSE_ITS ---
Date of service: 01/12/24 Time of Service: 09:30 DS: Diagnosis Discharge Diagnosis (1) Degenerative joint disease of right knee: Status: Resolved Discharge Plan Disposition Patient Disposition: Home W/Home Health Services Condition: Good Discharge Details Reason For Visit: R TKR Admit Date/Time: 01/11/24 17:20 Admit Provider: Oren Estrella Attending Provider: Oren Estrella Primary Care Provider: Brian Fu Hospital Course Hospital Course: Patient was admitted to the medical/surgical floor following the procedure. The surgery was tolerated well without any notable medical, surgical, or anesthetic complications. Mobilization began postoperatively. While he did well initially he had some weakness and dizziness, so he was kept overnight for observation. There were no acute issues. He was voiding spontaneously. Vitals were stable. Physical therapy worked with the patient and was cleared for discharge home. No acute medical issues. Pain was controlled on oral regimen. Home Meds and New Rx's Prescriptions: New acetaminophen 500 mg tablet 1,000 mg PO TID Qty: 90 3RF dexamethasone 4 mg tablet 4 mg PO DAILY Qty: 2 0RF gabapentin 300 mg capsule 300 mg PO QHS Qty: 14 0RF oxycodone 5 mg tablet 5 mg PO Q4H MDD 6 tabs PRN (Reason: pain) Qty: 20 0RF meloxicam 15 mg tablet 15 mg PO DAILY Qty: 30 0RF Continued nitroglycerin [Nitrostat] 0.4 mg tablet, sublingual 0.4 mg Sublingual PRN Qty: 25 4RF Rx Instructions: as directed for chest pain amoxicillin 500 mg tablet 2,000 mg PO ONCE Qty: 4 0RF Rx Instructions: Take 4 tablets or 2 grams 2 hours prior to appointment. clobetasol 0.05 % cream 1 applic topical BID 14 Days Qty: 45 1RF Eliquis 5 mg tablet 5 mg PO BID Hold Instructions: Changed by Provider multivitamin [Daily Vitamin] 1 EACH tablet 1 ea PO DAILY glucosam-chond ij-divjve-yb ac 1 EACH capsule 1 tab PO DAILY atorvastatin 40 mg tablet 40 mg PO DAILY Qty: 90 3RF tamsulosin [Flomax] 0.4 mg capsule 0.4 mg PO DAILY Qty: 90 2RF Discontinued acetaminophen [Tylenol Extra Strength] 500 mg Tablet 500 mg PO Q6H PRN Discharge Instructions Additional Instructions: Total Knee Discharge Instructions Activity: The most important activity is to walk and to work on gentle motion (both flexion and extension). You should try to take short walks a few times a day. It is important that when resting you work on keeping the knee straight. Avoid putting a pillow behind the knee as this will encourage flexion. Work on range of motion exercises as provided by Physical Therapy. - Start outpatient physical therapy within 2 weeks. - You should wear the KATHY hose on both legs for 2 weeks. You may remove these at night. You may also use any compression sock in place of the KATHY hose. - Utilize [employer] to review exercises, see videos on exercises and obtain basic information pertaining to your surgery and your recovery. Dressing: Remove the Kal wrap by 2 days after your surgery and put on the KATHY stocking given to you from the hospital. Keep the surgical dressing (underneath the KAL wrap) in place for at least one week. After the first week it may be removed and replaced with light gauze and tape or nothing. The wound and dressing may get wet after 3 days but avoid soaking the dressing or otherwise it will need to be changed. Many people prefer covering the dressing with cling wrap (saran wrap) to minimize it from getting soaked. If it gets wet, just pat dry. If it starts to peel off then it will need to be changed. Medications: - You should take Tylenol and anti-inflammatory Celebrex as your primary pain control medications. If the Celebrex is too expensive or not covered, please call the office for another alternative (Advil/Ibuprofen or Naproxen/Aleve) - You have been prescribed a stronger pain medication Oxycodone for breakthrough pain, take as needed as prescribed. - You have been prescribed Gabapentin to take at night for restlessness and nerve pain. - You will be taking your apixaban for DVT prevention unless instructed otherwise. - You have also been prescribed Decadron to take to control post-operative nausea and pain. You will start this tomorrow. - If you have constipation you should take Colace or Miralax (both [id number]). It takes most people 3-4 days to have a bowel movement. Follow-up: 2 weeks If you have any acute concerns or questions, please do not hesitate to contact the office at [phone]. You may contact Dr. Estrella with any questions after hours through the hospital at [phone] or on his cell phone at [phone]. 1. Encounter Date and Reason I certify that Les Carlson was seen by Oren Estrella MD on 01/12/24 and that I had a nrbt-[id number] encounter with this patient that meets the physician face to face encounter requirements. 2. Clinical Findings Supporting Skilled Need and Homebound Status I certify that home health services are medically necessary, include either intermittent group home and/or physical/speech therapy, and that this patient is homebound in that absences from the home require considerable and taxing effort and are infrequent or of short duration, or are attributable to the need to receive medical care. [X] (a) Attached documentation from encounter provides clinical findings supporting skilled need and homebound status (including what assistance patient requires to leave the home). The encounter with the patient was in whole, or in part, for the following medical condition, which is the primary reason for home health care: R TKR Chcf: Physical Therapy: Les will benefit from home physical therapy to work on mobility and strengthening after right knee replacement. He has weakness and gait dysfunction. He is weight bearing as tolerated with assistive devices. He may work on gait and slow active range of motion. Speech Therapy: Homebound: Les is homebound due to recent surgery with weakness and giat dysfunction. 3. Certification and Authentication I certify that I composed the above information based on my clinical judgement relating to this patient's medical condition and, if applicable, clinical findings communicated to me by the NPP or inpatient physician who performed the Home Health Referral. All further orders will be obtained through Dr. Estrella. Stand Alone Forms: Anesthesia Discharge Inst., Anes.Nerve Block Instructions, Favian Trevino (DSU) Referrals: Oren Estrella MD [ [facility] STAFF PHYSICIAN] - 01/26/24 1:45 pm Equipment/Supplies: Walker Activity:: Activity as Tolerated Shower/Bathe:: 72 hours Activity:: Activity as Tolerated Equipment/Supplies:: Walker Diet:: As Tolerated Discharge Orders Discharge Orders: Discharge Order (Routine); Ordered 01/11/24 Ordered By: Toi Bethea DS: Summary Time Spent with Patient providing and/or coordinating discharge services: Greater than 30 minutes Status at Discharge Functional status at discharge: uses cane/walker Overall status at discharge: patient is progressing back to baseline Mental Status: mental status grossly normal Speech and Movement: speech and movement normal Mood: congruent mood Affect: normal affect Quality:SDOH Health Related Social Needs: No Data to Display Exam Narrative Exam Narrative: AAOx3. NAD RLE dressing c/d/i. +SLR, Active knee extension and flexion +ADF/APF/EHL/FHL SILT DP/SP/Tib Psych Mental Status: mental status grossly normal Speech and Movement: speech and movement normal Mood: congruent mood Affect: normal affect DS: Data Vitals/I&O Vitals and I&O: Vital Signs Temperature 36.5 C 01/12/24 03:12 Temperature Source Tympanic 01/12/24 03:12 Pulse 61 01/12/24 03:12 Pulse Rhythm Irregular 01/11/24 20:20 Pulse 57 L 01/11/24 13:16 Respiratory Rate 17 01/12/24 03:12 Respiratory Effort Normal 01/11/24 20:20 Respiratory Depth Normal 01/11/24 20:20 Respiratory Pattern Normal 01/11/24 20:20 Blood Pressure 108/67 01/12/24 03:12 Blood Pressure Mean 89 01/11/24 16:09 Blood Pressure Position Supine 01/11/24 16:09 Pulse Oximetry 95 01/12/24 03:12 Respiratory End-tidal CO2 30 01/11/24 13:01 Oxygen Delivery Method Room Air 01/12/24 03:12 Oxygen Flow Rate 0 01/12/24 03:12 Pain Level 0 01/12/24 03:12 Comment Kayden Chiu CRNA assisted by Bayron Conner RN 01/11/24 09:16 Intake & Output 01/11/24 01/11/24 01/12/24 11:59 23:59 11:59 Intake Total 650 / 1670 1020 / 1670 Output Total 350 / 700 350 / 700 150 / 150 Balance 300 / 970 670 / 970 -150 / -150 Weight 79.8 kg 81.193 kg Intake: IV 650 / 1150 500 / 1150 Oral 520 / 520 Output: Urine 350 / 350 150 / 150 Emesis 0 / 0 Estimated Blood Loss 350 / 350 Other: Urine Color Light Shannon Yellow Urine Appearance Clear Urine Odor Normal Emesis Description None Voiding Methods Urinal Urinal PFSH All Active Problems History of total right knee replacement (Acute ~01/11/24) 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 (Acute) Pre-syncope (Acute ~01/18/23) Sacroiliac joint dysfunction of left side (Acute) Left buttock pain (Acute) Pain of left hip (Acute) Bradycardia (Acute) Diverticula of colon (Acute) Gallstones (Acute) Confusion (Acute) Low back pain, non-specific (Acute) Chronic anticoagulation (Chronic) BPV (benign positional vertigo) (Chronic) Obstructive sleep apnea syndrome (Chronic 05/07/12) DX 04/12 AT [facility] [place] refuses CPAP Night sweats (Chronic 03/15/17) Memory loss (Chronic 03/15/17) Benign memory loss of ageing Hypothyroidism (Chronic 06/16/12) Hyperlipidemia (Chronic 02/12/10) Hiatal hernia (Chronic 02/17/16) [facility] [place] Hearing loss (Chronic) Generalized osteoarthrosis (Acute 03/28/13) Left TKA 10/10 Benign prostatic hyperplasia with lower urinary tract symptoms (Chronic 08/28/15) Bautista's esophagus (Chronic) Atrial fibrillation (Chronic 02/11/12) unable to tadeo dofetilide (prolonged QT) on coumadin ASCVD (arteriosclerotic cardiovascular disease) (Chronic 02/12/10) JANUARY 2010 CATH AT [facility] [place] 90% LAD LESION STENTED GERD (gastroesophageal reflux disease) (Chronic) Patient with symptoms consistent with GERD rather than chest pain of cardiopulmonary etiology. Has a history of esophagitis and currently on warfarin, therefore will have general surgery proceed with EGD. We will have him follow-up with PCP. 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 had worked up determined dehydration and heat exhaustion Surgical History Hx of total knee replacement L History of arthroscopy of knee Status post hip replacement Status post inguinal hernia repair Status post rotator cuff repair H/O colonoscopy (~11/25/20) History of esophagogastroduodenoscopy (EGD) (~11/25/20) Total replacement of hip (~06/2010) RIGHT Stent placement 2009;LAD Rotator Cuff Repair RIGHT Repair of inguinal hernia (~1984) RIGHT Hemorrhoidal Banding (~2005) CARDIAC CATH LEFT HEART 2009 Arthroplasty of knee right; repair of torn meniscus Family History Mother , 96 Diabetes Heart disease PACEMAKER Father , 78 Diabetes Heart disease BYPASS Hyperlipidemia Pancreatic cancer Maternal Grandfather , 86 No problems noted. Paternal Grandfather , 88 Cancer Maternal Grandmother , 91 No problems noted. Paternal Grandmother Cancer Brother Heart disease A-FIB Hyperlipidemia Stroke Daughter No problems noted. Daughter Asthma Social History Smoking/Tobacco Use Status: Former Tobacco Use tobacco type: pipe Quit Date: 08/01/71 Pack-years: 40 Second Hand Exposure: Yes Smoking risk assessment performed?: Yes Alcohol Intake: never Drug use: Never Substance use type: does not use Caregiver/Support person: No Household members: spouse Housing: apartment Communication Needs: Hard of Hearing Do you need help understanding health information?: Never Pets and animals: No Sexually active: No Do you think of yourself as: straight/heterosexual Current gender identity: male What is your relationship status?: How often do you talk on the phone with friends or family?: twice per week How often do you get together with friends or relatives?: once per week How often do you attend gnosticism or nondenominational services?: 1-3 times per year Do you belong to any clubs or organized social groups?: no Panel score (0-1 are the most socially isolated patients): 2 What type of physical activity do you participate in: walking and bicycling Duration: < 15 minutes/day Frequency: 3-4 times per week Nalini/Mandaeism: No preference Special nalini needs: No Seatbelt use: always Helmet use: Yes Helmet use: always Drive intox or ride w/intox tour driver: No Do you feel safe at home: Yes Additional Social history: [employer] Time Spent with Patient Time Spent with Patient: <45 minutes Time was spent: preparing to see the patient(eg.review tests), obtaining and/or reviewing separately otained hiistory, indepentently interpreting results and counseling the patient
[2024-01-12] MEDS: oxyCODONE 5 MG TAB PO ×2 (10:45→14:13)
--- NOTE | 2024-01-12 11:17 | PTTR_ITS ---
PT Notes Visit Reasons: R TKR Physical Therapy Inpatient Treatment Note Date: 01/12/2024 Patient History: Patient was seen at the ED on 01/11/2024 for evalaution S/P R TKA but needed to be admitted to med surg for continued monitoring of blood pressure and lightheadedness. atient is POD1. Precautions: Per Dr. Estrella.WBAT on the right LE with AD. Social History/Home Situation: Lives with in a private home with one half step to enter. Independent with all aspects of ADLs prior to surgery. Equipment Owned/DME: None Subjective: Patient reports 1-2/10 pain in the right knee at rest and with movement. Denied headache, chest pain, and lightheadedness throughout session. Objective: General Observation: JOVI wraps to right LE. Cryocuff to right knee. Mental Status: A and O x 4 Pain: As above Bed Mobility/Transfers: Minimal cueing provided for use of B hands as needed for support, movement sequence, AD management, and posture to reduce fall risk and minimize pain report Supine to sit stand by assist Sit to stand stand by assist Stand to sit stand by assist Bed to chair stad by assist Gait: Facilitated safe and correct lateral surface ambulation covering a distance of 300 feet using front-wheeled walker requiring minimal verbal cueing for safe limb advancement, AD management, and posture. No report of lightheadedness and did not require seated rest for this session. Balance: Static Sitting: Normal Dynamic Sitting: Normal Static Standing: Fair Dynamic Standing: Fair Informed Consent/Education: Patient instructed in purpose of PT consult. Packet containing R exercise protocol has been given to patient. Education and training on initial set of exercises that can be done at home have been completed with patient. reviewed HEP below to maximize motor control, joint flexibility, soft tissue extensibility of the R knee musculature: Access Code: [email or web address] URL: [email or web address] Date: 01/11/2023 Prepared by: Valentina Winn Exercises - Supine Quad Set - 1 x daily - 7 x weekly - 1 sets - 10 reps - 5 hold - Supine Heel Slide - 1 x daily - 7 x weekly - 1 sets - 10 reps - 5 hold - Supine Ankle Pumps - 1 x daily - 7 x weekly - 1 sets - 10 reps - 5 hold - Small Range Straight Leg Raise - 1 x daily - 7 x weekly - 1 sets - 10 reps - 5 hold - Seated March - 1 x daily - 7 x weekly - 1 sets - 10 reps - 5 hold Assessment: Patient requires the use of a front wheeled walker for mobility ADL performance to maximize independence and reduce fall risk. Complains of dizziness and limited ability to tolerate upright positioning and required seated rest. Patient presents with clinical signs and symptoms consistent with current/admitting diagnoses that have resulted to mobility limitations, gait instability, generalized weakness, and impairment of motor control as demonstrated by the following impairment level findings: 1. Decreased strength to R knee major muscle groups 2. Impaired standing balance 3. Limitation of joint range of motion in R knee Impairments are contributing to the following functional limitations: 1. Inability to safely ambulate without assistive device 2. Increase completion time for mobility ADL performance 3. Increased fall risk Patient is assessed as a 74923 moderate complexity based on the following: History: 78-year-old male with impairment level findings, functional limitations, and past medical history as indicated above Examination: Demonstrable impairment in strength, balance, and mobility level with underlying impairments and functional limitations as documented above Presentation: Evolving Decision Makin moderate complexity Goals: Goals X1 week 1. Supine-Sit independent 2. Sit-Supine independent 3. Sit-Stand independent 4. Stand-Sit independent 5. Bed-Chair independent 6. Chair-Bed independent 7. Independent gait on level surface with use of least restrictive device for at least 300 feet without report of pain nor dyspnea 8. Independent stair negotiation while holding onto bilateral rails for at least 10 steps without report of pain nor dyspnea 9. Independent with home exercise program 10. Good static and dynamic standing balance/tolerance Plan of Care/Treatment Plan: Patient will highly benefit from skilled physical therapy services including functional mobility training, bed mobility/transfer training, gait and balance training, therapeutic exercises, therapeutic activity, caregiver/staff/family education and training 1x/day, 7 days/week x 1 week. Plan of care has been reviewed with the IDENTITY MANAGEMENT DEVELOPER providing the service under Physical Therapy direction. Initiate Physical Therapy intervention for strengthening, bed mobility, transfers, gait, stairs, balance training, use of assistive device. DISCHARGE RECOMMENDATIONS: Home when medically cleared by orthopedic surgeon. Recommend outpatient PT services in order to optimize functional mobility outcomes and facilitate return to independent community ambulation without an assistive device TREATMENT CODE/TIME: 53907 x 23 minutes for 2 units (11:17 8?70 chair -11:41).
[2024-01-12 11:23] VITALS: BP 118/54; PULSE 64; RESP 18; TEMP 36.8; O2SAT 97
--- NOTE | 2024-01-12 15:18 | PDOC.CMPRO ---
Date of service: 01/12/24 Time of Service: 15:18 SDOH(Care Management) Screening Will the Patient Participate in the Screening?: Yes Do you worry about having a steady place to live?: no Problems where you live: no known problems In the past 12 months, have you had to go without electric, gas, oil or water in your home?: no Have you or anyone in your house had to go without enough food to eat?: no Has lack of transportation kept you from medical appointments or from doing things needed for daily living?: no Has anyone in your support network made you feel unsafe for any reason?: no
--- NOTE | 2024-01-12 16:02 | PDOC.CMDIS ---
Date of service: 01/12/24 Time of Service: 16:02 LACE Index Scoring Tool Questions: Length of Stay (in days): 1 Was the patient admitted via the E.D.?: No E.D. Visits: 0 Answers: Total Score: 1 Risk of Readmission: Low Risk Care Management Discharge Plan Reason for Hospitalization: DJD Discharge Plan: Les will be discharged home with new orders for Home health PT. He will follow up with Dr. Estrella and transport with family. Patient/Family Education Needs: Review discharge instructions, activity, limitations, follow up plan and discuss Ask Me Three Services Needed at Discharge: Physical Therapy SDOH Health Related Social Needs: No Data to Display
--- NOTE | 2024-01-15 08:57 | CMPROGNOTE_ITS ---
Date of service: 01/15/24 Time of Service: 08:57 Care Management Progress Note Progress Note Text Progress Note Text: Les Carlson was discharged from [facility] on 01/11 following a Total Knee Arthroplasty and Dr. Estrella wants to make sure he's followed in the community. He needs home PT, which CM RN sent the referral to [facility] after speaking with Dr. Estrella this weekend. Les's home physical home address is being updated in his EMR to: [address] [id number]. CM also notified his PCP CCC at [facility]. SDOH(Care Management) Screening Will the Patient Participate in the Screening?: Yes Do you worry about having a steady place to live?: no Problems where you live: no known problems In the past 12 months, have you had to go without electric, gas, oil or water in your home?: no Have you or anyone in your house had to go without enough food to eat?: no Has lack of transportation kept you from medical appointments or from doing things needed for daily living?: no Has anyone in your support network made you feel unsafe for any reason?: no
== END 2024-01-12 14:14 | disposition home health service (06) ==
LOC: MS 01-12 10:32
PROVIDERS: Admitting Provider Student in an Organized Health Care Education/Training Program; PCP Nurse Practitioner Family; Visit Provider Student in an Organized Health Care Education/Training Program
PROC: (CPT 27447; principal; 2024-01-11 09:45)
DX: M17.11 Unilateral primary osteoarthritis, right knee (principal); M51.36 Other intervertebral disc degeneration, lumbar region; R00.1 Bradycardia, unspecified; K57.30 Diverticulosis of large intestine without perforation or abscess without bleeding; M54.50 Low back pain, unspecified; Z79.01 Long term (current) use of anticoagulants; G47.33 Obstructive sleep apnea (adult) (pediatric); E03.9 Hypothyroidism, unspecified; E78.5 Hyperlipidemia, unspecified; K44.9 Diaphragmatic hernia without obstruction or gangrene; N40.1 Benign prostatic hyperplasia with lower urinary tract symptoms; I48.91 Unspecified atrial fibrillation; I25.10 Atherosclerotic heart disease of native coronary artery without angina pectoris; K22.70 Barrett's esophagus without dysplasia; K21.9 Gastro-esophageal reflux disease without esophagitis
CPT/HCPCS: 27447; 20985; C1776; 76942; 97162; 97530; G0378; J0665; J0690; J1100; J2250; J2371; J2401; J2405; J2704

== ENCOUNTER 2024-01-21 11:14 | Emergency (ER) | payer MEDICARE, SELFPAY ==
[2024-01-21 11:16] VITALS: BP 93/63; PULSE 87; RESP 12; TEMP 36.6; O2SAT 99
[2024-01-21 11:23] VITALS: O2SAT 98
[2024-01-21 11:26] VITALS: BP 132/68; PULSE 58; O2SAT 100
[2024-01-21 11:34] VITALS: BP 132/68; PULSE 87; RESP 12; TEMP 36.6; O2SAT 99
[2024-01-21 12:02] VITALS: BP 146/59; PULSE 56
[2024-01-21 12:10] LABS: Bilirubin Negative (Negative); Blood Negative (Negative); Clarity Clear (Clear); Glucose Negative (Negative); Ketones Negative (Negative); Leukocyte Esterase Negative (Negative); Nitrite Negative (Negative); Urobilinogen 0.2 mg/dL (Up to 0.2); pH 5.5 (5-8)
[2024-01-21 12:16] VITALS: BP 120/76; PULSE 53
--- NOTE | 2024-01-21 12:59 | W.ED.GENAD ---
Discharge Plan Disposition Patient Disposition: Home Condition: Stable Discharge Details Clinical Impression: Acute urinary retention Primary Care Provider: Brian Fu ED Provider: Sahra Mejia Home Meds and New Rx's Prescriptions: Continued nitroglycerin [Nitrostat] 0.4 mg tablet, sublingual 0.4 mg Sublingual PRN Qty: 25 4RF Rx Instructions: as directed for chest pain amoxicillin 500 mg tablet 2,000 mg PO ONCE Qty: 4 0RF Rx Instructions: Take 4 tablets or 2 grams 2 hours prior to appointment. clobetasol 0.05 % cream 1 applic topical BID 14 Days Qty: 45 1RF Eliquis 5 mg tablet 5 mg PO BID Hold Instructions: Changed by Provider multivitamin [Daily Vitamin] 1 EACH tablet 1 ea PO DAILY glucosam-chond [id number] ac 1 EACH capsule 1 tab PO DAILY tamsulosin [Flomax] 0.4 mg capsule 0.4 mg PO DAILY Qty: 90 2RF atorvastatin 40 mg tablet 40 mg PO DAILY Qty: 90 3RF cephalexin 500 mg capsule 500 mg PO TID Qty: 15 0RF Rx Instructions: take 1 tablet by mouth three times per day for 5 days acetaminophen 500 mg tablet 1,000 mg PO TID Qty: 90 3RF dexamethasone 4 mg tablet 4 mg PO DAILY Qty: 2 0RF gabapentin 300 mg capsule 300 mg PO QHS Qty: 14 0RF oxycodone 5 mg tablet 5 mg PO Q4H MDD 6 tabs PRN (Reason: pain) Qty: 20 0RF meloxicam 15 mg tablet 15 mg PO DAILY Qty: 30 0RF Discharge Instructions Instructions: Urinary Retention (DC), Dealing with Urinary Retention from the Drugs You Take Additional Instructions: You are retaining some urine, however we talked about placing a Herrera catheter and you have declined The medication, oxycodone you are taking for pain may be contributing to your urinary retention At this time you have no evidence of urinary tract infection Should you have worsening pressure and persistent difficulty urinating my recommendation would be to return for Herrera catheter placement Please follow-up with orthopedics regarding your knee as instructed and return earlier should you have new or worsening complaints It sounds like you have taken your last tablet of oxycodone, I would try to refrain from taking any additional doses at this time Referrals: Brian Fu, JIG GRINDER SET UP OPERATOR [Primary Care Provider] - 2 days HPI General Date/Time Provider Initiated Documentation: 01/21/24 11:14. HPI Narrative: This 78-year-old male with recent total knee replacement on 01/11/2024 presents with urinary retention which started this morning. States he has had decreased stream and inability to empty completely since this morning. Has been on oxycodone for the past 2 weeks per patient. Denies any pain with urination but does report some suprapubic pressure. Denies any fever or chills. Currently taking Keflex for a cellulitis around his right knee. Denies any pain or fevers. Denies any weakness or dizziness. Denies any flank pain. Related Data Home Medications Medication Instructions Recorded Confirmed multivitamin (Daily Vitamin tablet) 1 ea PO DAILY 10/08/12 01/21/24 xulphkxqbh-xkloamtemh-phhouexd-hyalur 1 tab PO DAILY 02/15/13 01/21/24 ac 375 mg-300 mg-175 mg-2 mg cap nitroglycerin 0.4 mg sublingual 0.4 mg sublingual PRN #25 tabs 04/21/22 01/21/24 tablet (Nitrostat) apixaban 5 mg tablet (Eliquis) 5 mg PO BID 10/05/22 01/21/24 amoxicillin 500 mg tablet 2,000 mg (4 x 500 mg) PO ONCE #4 08/16/23 01/21/24 tabs tamsulosin 0.4 mg capsule (Flomax) 0.4 mg PO DAILY #90 caps 11/14/23 01/21/24 clobetasol 0.05 % topical cream 1 applic topical BID contact 01/02/24 01/21/24 dermatitis 2 weeks #45 grams acetaminophen 500 mg tablet 1,000 mg (2 x 500 mg) PO TID #90 01/11/24 01/21/24 tabs dexamethasone 4 mg tablet 4 mg PO DAILY #2 tabs 01/11/24 01/21/24 gabapentin 300 mg capsule 300 mg PO QHS #14 caps 01/11/24 01/21/24 meloxicam 15 mg tablet 15 mg PO DAILY #30 tabs 01/11/24 01/21/24 oxycodone 5 mg tablet 5 mg PO Q4H PRN pain #20 tabs 01/11/24 01/21/24 atorvastatin 40 mg tablet 40 mg PO DAILY #90 tab-caps 01/18/24 01/21/24 cephalexin 500 mg capsule 500 mg PO TID #15 caps 01/20/24 01/21/24 Previous Rx's Medication Instructions Recorded nitroglycerin 0.4 mg sublingual 0.4 mg sublingual PRN #25 tabs 04/21/22 tablet (Nitrostat) amoxicillin 500 mg tablet 2,000 mg (4 x 500 mg) PO ONCE #4 08/16/23 tabs tamsulosin 0.4 mg capsule (Flomax) 0.4 mg PO DAILY #90 caps 11/14/23 clobetasol 0.05 % topical cream 1 applic topical BID contact 01/02/24 dermatitis 2 weeks #45 grams acetaminophen 500 mg tablet 1,000 mg (2 x 500 mg) PO TID #90 01/11/24 tabs dexamethasone 4 mg tablet 4 mg PO DAILY #2 tabs 01/11/24 gabapentin 300 mg capsule 300 mg PO QHS #14 caps 01/11/24 meloxicam 15 mg tablet 15 mg PO DAILY #30 tabs 01/11/24 oxycodone 5 mg tablet 5 mg PO Q4H PRN pain #20 tabs 01/11/24 atorvastatin 40 mg tablet 40 mg PO DAILY #90 tab-caps 01/18/24 cephalexin 500 mg capsule 500 mg PO TID #15 caps 01/20/24 Allergies Allergy/AdvReac Type Severity Reaction Status Date / Time levothyroxine sodium Allergy Severe RASH, Verified 01/21/24 11:20 JOINT PAIN pravastatin Allergy Mild RASH Verified 01/21/24 11:20 dofetilide [From Tikosyn] AdvReac Severe rash Verified 01/21/24 11:20 esomeprazole AdvReac Severe DIARRHEA Verified 01/21/24 11:20 famotidine AdvReac Intermediate confusion Verified 01/21/24 11:20 simvastatin AdvReac Intermediate MYALGIAS Verified 01/21/24 11:20 General Stated Complaint: Urinary JOSHUA: 3 Exam Narrative Exam Narrative: Alert, oriented, 78-year-old male in no acute distress presenting with benign abdominal exam, no CVA tenderness, distal pulses intact, bradycardia, no respiratory distress Course Vital Signs Vital signs: Vital Signs Temperature 36.6 C 01/21/24 11:16 Pulse 87 01/21/24 11:16 Respiratory Rate 12 01/21/24 11:16 Blood Pressure 93/63 L 01/21/24 11:16 Pulse Oximetry 99 01/21/24 11:16 Temperature 36.6 C 01/21/24 11:34 Temperature Source Oral 01/21/24 11:34 Pulse 53 L 01/21/24 12:16 Respiratory Rate 12 01/21/24 11:34 Respiratory Effort Normal, Non-Labored 01/21/24 11:37 Blood Pressure 120/76 01/21/24 12:16 Blood Pressure Mean 92 01/21/24 12:16 Blood Pressure Position Sitting 01/21/24 11:34 Pulse Oximetry 99 01/21/24 11:34 Oxygen Delivery Method Room Air 01/21/24 11:34 Oxygen Flow Rate 0 01/21/24 11:34 Pain Level 3 01/21/24 11:34 Lab/Test Results Lab/Test Results: Laboratory Tests Range/Units 01/21/24 12:05 Urine Color (Yellow) Yellow Urine Clarity (Clear) Clear Urine pH (5-8) 5.5 Ur Specific [place] (1.005-1.025) 1.010 Urine Protein (Neg-Trace) mg/dL Negative Urine Ketones (Negative) mg/dL Negative Urine Blood (Negative) Negative Urine Nitrite (Negative) Negative Urine Bilirubin (Negative) Negative Urine Urobilinogen (Up to 0.2) mg/dL 0.2 Ur Leukocyte Esterase (Negative) Negative Urine Glucose (Negative) mg/dL Negative Medical Decision Making 78-year-old male presenting with stable exam. Secondary to concern for urinary retention bladder scan was performed with approximately 380 cc in bladder. Patient was able to urinate give a postvoid residual of 180 cc. Patient feels symptomatically improved. We talked about Herrera catheter placement however patient has been taking oxycodone and is likely developed some urinary retention and he is discontinued the oxycodone as of this morning. He would like to be discharged without Herrera catheter placement he is aware that he may need to return secondary to urinary retention and is of decisional capacity at time of assessment. His urinalysis does not show evidence of infection. His abdominal exam and flank exam is benign I see no clear indication for blood work or imaging at this time. Patient is feeling symptomatically improved post avoiding and will continue taking Flomax and return as necessary. 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 (Acute) Pre-syncope (Acute ~01/18/23) Sacroiliac joint dysfunction of left side (Acute) Left buttock pain (Acute) Pain of left hip (Acute) Bradycardia (Acute) Diverticula of colon (Acute) Gallstones (Acute) Confusion (Acute) Low back pain, non-specific (Acute) Chronic anticoagulation (Chronic) BPV (benign positional vertigo) (Chronic) Obstructive sleep apnea syndrome (Chronic 05/07/12) DX 04/12 AT [facility] refuses CPAP Night sweats (Chronic 03/15/17) Memory loss (Chronic 03/15/17) Benign memory loss of ageing Hypothyroidism (Chronic 06/16/12) Hyperlipidemia (Chronic 02/12/10) Hiatal hernia (Chronic 02/17/16) [facility] Hearing loss (Chronic) Generalized osteoarthrosis (Acute 03/28/13) Left TKA 10/10 Benign prostatic hyperplasia with lower urinary tract symptoms (Chronic 08/28/15) Bautista's esophagus (Chronic) Atrial fibrillation (Chronic 02/11/12) unable to tadeo dofetilide (prolonged QT) on coumadin ASCVD (arteriosclerotic cardiovascular disease) (Chronic 02/12/10) JANUARY 2010 CATH AT [facility] 90% LAD LESION STENTED GERD (gastroesophageal reflux disease) (Chronic) Patient with symptoms consistent with GERD rather than chest pain of cardiopulmonary etiology. Has a history of esophagitis and currently on warfarin, therefore will have general surgery proceed with EGD. We will have him follow-up with PCP. 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 had worked up determined dehydration and heat exhaustion Surgical History Hx of total knee replacement L History of arthroscopy of knee Status post hip replacement Status post inguinal hernia repair Status post rotator cuff repair H/O colonoscopy (~11/25/20) History of esophagogastroduodenoscopy (EGD) (~11/25/20) Total replacement of hip (~06/2010) RIGHT Stent placement 2009;LAD Rotator Cuff Repair RIGHT Repair of inguinal hernia (~1984) RIGHT Hemorrhoidal Banding (~2005) CARDIAC CATH LEFT HEART 2009 Arthroplasty of knee right; repair of torn meniscus Family History Mother , 96 Diabetes Heart disease PACEMAKER Father , 78 Diabetes Heart disease BYPASS Hyperlipidemia Pancreatic cancer Maternal Grandfather , 86 No problems noted. Paternal Grandfather , 88 Cancer Maternal Grandmother , 91 No problems noted. Paternal Grandmother Cancer Brother Heart disease A-FIB Hyperlipidemia Stroke Daughter No problems noted. Daughter Asthma Social History Smoking/Tobacco Use Status: Former Tobacco Use tobacco type: pipe Quit Date: 08/01/71 Pack-years: 40 Second Hand Exposure: Yes Smoking risk assessment performed?: Yes Alcohol Intake: never Drug use: Never Substance use type: does not use Caregiver/Support person: No Household members: spouse Housing: apartment Communication Needs: Hard of Hearing Do you need help understanding health information?: Never Pets and animals: No Sexually active: No Do you think of yourself as: straight/heterosexual Current gender identity: male What is your relationship status?: How often do you talk on the phone with friends or family?: twice per week How often do you get together with friends or relatives?: once per week How often do you attend latter-day or confucianism services?: 1-3 times per year Do you belong to any clubs or organized social groups?: no Panel score (0-1 are the most socially isolated patients): 2 What type of physical activity do you participate in: walking and bicycling Duration: < 15 minutes/day Frequency: 3-4 times per week Nalini/Sikh: No preference Special nalini needs: No Seatbelt use: always Helmet use: Yes Helmet use: always Drive intox or ride w/intox transfer driver: No Do you feel safe at home: Yes Additional Social history: ERIKA
== END 2024-01-21 13:13 | disposition home or self-care (01) ==
PROVIDERS: Emergency Provider Physician Assistant; PCP Nurse Practitioner Family
DX: R39.16 Straining to void (principal); R33.8 Other retention of urine
CPT/HCPCS: 51798; 99283; 81003

== ENCOUNTER → 2024-01-23 10:02 | Outpatient (BNVA) | payer MEDICARE, SELFPAY | PROVIDERS: PCP Nurse Practitioner Family; Referring Provider Nurse Practitioner Family | DX: Z47.1 Aftercare following joint replacement surgery (principal); Z96.651 Presence of right artificial knee joint ==

== ENCOUNTER → 2024-02-20 11:07 | Outpatient (BNVA) | payer MEDICARE, SELFPAY | PROVIDERS: PCP Nurse Practitioner Family; Visit Provider Student in an Organized Health Care Education/Training Program | DX: Z47.1 Aftercare following joint replacement surgery (principal); Z96.651 Presence of right artificial knee joint ==

== ENCOUNTER 2024-03-12 11:44 | Outpatient (CLI) | payer MEDICARE, SELFPAY ==
--- NOTE | 2024-03-12 11:00 | DI.RAD_ITS ---
Exam(s) XR STANDING ALIGNMENT EXAM: XR STANDING ALIGNMENT CLINICAL HISTORY: right TKA. TECHNIQUE: 2D digital imaging was performed. Four images were obtained. COMPARISON: CR XR KNEE RT 1V from 12/29/2023 CR XR STANDING ALIGNMENT from 12/29/2023 FINDINGS: BONES: There again seen findings of a right total hip replacement. Dystrophic calcifications are see n in the soft tissues around the right hip. There is mild joint space narrowing of the left hip. Si nce the prior examination, the patient has undergone a right total knee replacement. The orthopedic hardware appears in good position. There is a stable prior left total knee replacement. The ankles are well maintained.The right lower extremity is approximately 1 cm shorter in length in the left low er extremity. SOFT TISSUE: Normal. IMPRESSION: New right total knee replacement which appears in good position. DATA REPOSITORY: RADIATION DOSE DELIVERED:
--- NOTE | 2024-03-12 11:22 | DI.RAD_ITS ---
Exam(s) XR KNEE RT 1V EXAM: XR KNEE RT 1V CLINICAL HISTORY: s/p right TKA. TECHNIQUE: 2D digital imaging was performed. One images were obtained. Lateral views were obtained. COMPARISON: CR XR KNEE RT 1V from 12/29/2023 CR XR STANDING ALIGNMENT from 03/12/2024 FINDINGS: BONES: The patient has a right total knee replacement. Orthopedic hardware appears unremarkable on t his lateral view. No fracture or dislocation. JOINTS: The orthopedic hardware is in good position. No evidence of hardware loosening. SOFT TISSUE: Vascular calcifications are present. IMPRESSION: This is a single lateral view which shows a right total knee replacement. No suspicious lucencies ar e seen around the visualized orthopedic hardware on the single image. DATA REPOSITORY: RADIATION DOSE DELIVERED:
== END 2024-03-12 11:45 | disposition home or self-care (01) ==
LOC: DIORS 11:45
PROVIDERS: PCP Nurse Practitioner Family; Visit Provider Physician Assistant
DX: Z96.651 Presence of right artificial knee joint (principal); Z47.1 Aftercare following joint replacement surgery
CPT/HCPCS: 73560; 77073

== ENCOUNTER → 2024-04-12 12:58 | Outpatient (BNVA) | payer MEDICARE, SELFPAY | PROVIDERS: PCP Nurse Practitioner Family; Referring Provider Nurse Practitioner Family | DX: Z47.1 Aftercare following joint replacement surgery (principal); Z96.651 Presence of right artificial knee joint ==

== ENCOUNTER → 2024-12-12 14:17 | Outpatient (BNVA) | payer MEDICARE, SELFPAY | PROVIDERS: PCP Nurse Practitioner Family; Referring Provider Nurse Practitioner Family; Visit Provider Nurse Practitioner Adult Health | DX: R41.3 Other amnesia (principal); I10 Essential (primary) hypertension | CPT/HCPCS: 99215; G2212 ==